=== PATIENT | female | born 1975 | race Caucasian/White ===

== ENCOUNTER 2016-09-23 15:52 | Observation (INO) | payer MEDICAID ==
[2016-09-23] MEDS ORDERED: fentaNYL 100 MCG/2 ML SDV IVPUSH ONE ×3 (16:10→16:50)
[2016-09-23] MEDS ORDERED: Sodium Chloride 0.9% 10 ML Syringe FLUSH PRN (16:12)
[2016-09-23] MEDS ORDERED: Sodium Chloride 0.9% 1,000 ML IV ONE ×3 (16:12→17:50)
[2016-09-23] MEDS ORDERED: Ondansetron 4 MG/2 ML SDV IVPUSH ONE (16:12)
[2016-09-23] MEDS ORDERED: fentaNYL 100 MCG/2 ML SDV ONE (16:12)
--- NOTE | 2016-09-23 16:25 | EDM.PDOC ---
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 She is approximately 7 weeks with a due date of . LMP was 08/05/16. She is a 8, para 4 with 3 previous miscarriages. History of 1 previous ectopic . She has no vaginal bleeding. She was seen in the clinic today by Dr. Lake and was diagnosed with possible miscarriage. She had no pain at her clinic visit today. She is anxious and restless. She also has nausea and vomiting. I called and spoke to Dr. Lake who reports that the patient had no pain or bleeding in the clinic this morning. She was diagnosed with suspected miscarriage. Ultrasound was performed in the clinic which Dr. Lake reports showed no adnexal mass or free fluid at that time. Her quantitative Hcg was 24, 000 today. He recommends transvaginal OB ultrasound to evaluate for ectopic . Lower Pelvic Pain Score (Numeric/FACES): 10 - Related Data Allergies Allergy/AdvReac Type Severity Reaction Status Date / Time hydromorphone HCl Allergy Hives Verified 05/25/16 08:53 [From Dilaudid] venom-honey bee Allergy Anaphylactic Verified 05/25/16 08:53 [bee venom (honey bee)] Shock preservatives in chicken Allergy Rash Uncoded 07/30/14 10:33 Home Meds: Home Meds PNV95/Ferrous Fumarate/FA [ Tablet] 1 tab PO DAILY 09/23/16 [History] Past Medical History HEENT History: Reports: Impaired vision Cardiovascular History: Reports: Other (see below) Other Cardiovascular History: DVT's in past Genitourinary History: Reports: Renal calculus 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 grav 8 para 4 and 3 miscarriage Hematologic History: Reports: Other (see below) (DVT) Other Hematologic History: pt is A positive; - Past Surgical History GI Surgical History: Reports: Appendectomy Female Surgical History: Reports: section Social & Family History - Family History Family Medical History: Noncontributory Cardiac: Reports: CA Respiratory: Reports: COPD Neurological: Reports: CVA Endocrine/Metabolic: Reports: Diabetes, type II - Tobacco Use Smoking Status *Q: Current Every Day Smoker Years of Tobacco use: 3 Packs/Tins Daily: 0.5 Used Tobacco, but Quit: No Second Hand Smoke Exposure: No - Caffeine Use Caffeine Use: Reports: Coffee, Tea - Alcohol Use Days Per Week of Alcohol Use: 0 - Recreational Drug Use Recreational Drug Use: No Drug Use in Last 12 Months: No Recreational Drug Type: Reports: Methamphetamine Recreational Drug Use Frequency: Not Used In Over 1 Year Recreational Drug Last Use: 2003 - Living Situation & Occupation Living situation: Reports: , with spouse, with family (3 kids) Occupation: employed ([employer]) ED ROS GENERAL - Review of Systems Review Of Systems: See Below Constitutional: Reports: No Symptoms. Denies: Fever, Chills Respiratory: Reports: No Symptoms. Denies: Shortness of Breath Cardiovascular: Reports: No Symptoms. Denies: Chest Pain GI/Abdominal: Reports: Abdominal Pain, Nausea, Vomiting : Reports: Other (no vaginal bleeding. pelvic pain) ED EXAM - Physical Exam Exam: See Below Exam Limited By: No Limitations General Appearance: Alert, WD/WN, Anxious, Severe Distress Respiratory/Chest: No Respiratory Distress, Lungs Clear, Normal Breath Sounds Cardiovascular: Regular Rate, Rhythm GI/Abdominal: Distended, Guarding, Tender (pelvic ). No: Rigid Neurological: Alert, Oriented Psychiatric: Anxious, Tearful Skin Exam: Pallor Course - Vital Signs Last Recorded V/S: Last Vital Signs Temp 98.2 F 09/23/16 16:03 Pulse 69 09/23/16 17:56 Resp 18 09/23/16 17:56 BP 64/35 L 09/23/16 17:56 Pulse Ox 98 09/23/16 17:56 - Orders/Labs/Meds Orders: Active Orders 24 hr Category Date Time Status Peripheral IV Care [RC] . DIRECTED Care 09/23/16 16:12 Active RED BLOOD CELLS LP [BBK] Stat Lab 09/23/16 16:30 Results TYPE AND SCREEN [BBK] Stat Lab 09/23/16 16:30 Results Norepinephrine [Levophed] 4 mg Med 09/23/16 17:30 Active Dextrose 5% in Water 246 ml IV TITRATE Sodium Chloride 0.9% [Normal Saline] 1,000 ml Med 09/23/16 17:50 Active IV ONETIME Sodium Chloride 0.9% [Saline Flush] Med 09/23/16 16:12 Active 10 ml FLUSH ASDIRECTED PRN Peripheral IV Insertion Adult [OM.PC] Stat [facility] 09/23/16 16:12 Ordered Schedule Procedure [COMM] Stat Ot 09/23/16 17:36 Ordered Transfuse PRBC [Transfuse Red Blood Cells] [COMM] Stat Ot 09/23/16 17:21 Ordered Medication Orders Norepinephrine Bitartrate 4 mg (/ Dextrose/Water) 250 mls @ 7.5 mls/hr IV TITRATE JILLIAN; 2 MCG/MIN PRN Reason: Protocol Sodium Chloride (Normal Saline) 1,000 mls @ 999 mls/hr IV ONETIME ONE Stop: 09/23/16 18:50 Sodium Chloride (Saline Flush) 10 ml FLUSH ASDIRECTED PRN PRN Reason: Keep Vein Open Last Admin: 09/23/16 16:25 Dose: 10 ml Labs: Laboratory Tests 09/23/16 09/23/16 09/23/16 Range/Units 16:30 16:30 16:30 WBC 10.97 H (3.98-10.04) K/mm3 RBC 3.53 L (3.98-5.22) M/mm3 Hgb 10.0 L (11.2-15.7) gm/L Hct 30.6 L (34.1-44.9) % MCV 86.7 (79.4-94.8) fl MCH 28.3 (25.6-32.2) pg MCHC 32.7 (32.2-35.5) g/dl RDW Std Deviation 50.3 H (36.4-46.3) fL Plt Count 236 (182-369) K/mm3 MPV 10.5 (9.4-12.3) fl Neut % (Auto) 75.6 H (34.0-71.1) % Lymph % (Auto) 17.4 L (19.3-51.7) % [place] % (Auto) 5.7 (4.7-12.5) % Eos % (Auto) 0.9 (0.7-5.8) Baso % (Auto) 0.3 (0.1-1.2) % Neut # (Auto) 8.30 H (1.56-6.13) K/mm3 Lymph # (Auto) 1.91 (1.18-3.74) K/mm3 [place] # (Auto) 0.62 H (0.24-0.36) K/mm3 Eos # (Auto) 0.10 (0.04-0.36) K/mm3 Baso # (Auto) 0.03 (0.01-0.08) K/mm3 Sodium 141 (136-145) mEq/L Potassium 3.5 (3.5-5.1) mEq/L Chloride 108 H (98-107) mEq/L Carbon Dioxide 21 (21-32) mEq/L Anion Gap 15.5 H (5-15) BUN 11 (7-18) mg/dL Creatinine 0.7 (0.55-1.02) mg/dL Est Cr Clr Drug Dosing 117.02 mL/min Estimated GFR (MDRD) > 60 (>60) mL/min BUN/Creatinine Ratio 15.7 (14-18) Glucose 118 H (74-106) mg/dL Calcium 7.9 L (8.5-10.1) mg/dL Total Bilirubin 0.2 (0.2-1.0) mg/dL AST 7 L (15-37) U/L ALT 15 (14-59) U/L Alkaline Phosphatase 61 (46-116) U/L Total Protein 5.8 L (6.4-8.2) g/dl Albumin 3.2 L (3.4-5.0) g/dl Globulin 2.6 gm/dL Albumin/Globulin Ratio 1.2 (1-2) Blood Type A POSITIVE Gel Antibody Screen Negative Crossmatch See Detail Meds: Medications Generic Name Dose Route Start Last Admin Trade Name Freq PRN Reason Stop Dose Admin Norepinephrine Bitartrate 4 mg 250 mls @ 7.5 mls/hr 09/23/16 17:30 / Dextrose/Water IV TITRATE JILLIAN Protocol 2 MCG/MIN Sodium Chloride 1,000 mls @ 999 mls/hr 09/23/16 17:50 Normal Saline IV 09/23/16 18:50 ONETIME ONE Sodium Chloride 10 ml 09/23/16 16:12 09/23/16 16:25 Saline Flush FLUSH 10 ml ASDIRECTED PRN Administration Keep Vein Open Discontinued Medications Generic Name Dose Route Start Last Admin Trade Name Luciano PRN Reason Stop Dose Admin Fentanyl Confirm 09/23/16 16:12 09/23/16 16:28 Sublimaze Administered 09/23/16 16:13 Not Given Dose 100 mcg .ROUTE .STK-MED ONE Fentanyl 50 mcg 09/23/16 16:10 09/23/16 16:11 Sublimaze IVPUSH 09/23/16 16:11 50 mcg ONETIME ONE Administration Fentanyl 50 mcg 09/23/16 16:45 09/23/16 16:50 Sublimaze IVPUSH 09/23/16 16:46 50 mcg ONETIME ONE Administration Fentanyl 50 mcg 09/23/16 16:50 09/23/16 17:47 Sublimaze IVPUSH 09/23/16 16:51 50 mcg ONETIME ONE Administration Hydromorphone HCl 0.5 mg 09/23/16 16:37 09/23/16 17:25 Dilaudid IVPUSH 09/23/16 16:38 Not Given ONETIME ONE Sodium Chloride 1,000 mls @ 999 mls/hr 09/23/16 16:12 09/23/16 16:21 Normal Saline IV 09/23/16 17:12 999 mls/hr ONETIME ONE Administration Sodium Chloride 1,000 mls @ 999 mls/hr 09/23/16 17:13 09/23/16 17:25 Normal Saline IV 09/23/16 18:13 999 mls/hr ONETIME ONE Administration Sodium Chloride Confirm 09/23/16 17:15 09/23/16 17:26 Normal Saline Administered 09/23/16 17:16 Not Given Dose 1,000 mls @ as directed .ROUTE .STK-MED ONE Ondansetron HCl 4 mg 09/23/16 16:12 09/23/16 16:23 Zofran IVPUSH 09/23/16 16:13 4 mg ONETIME ONE Administration - Re-Assessments/Exams Free Text/Narrative Re-Assessment/Exam: Initial workup included transvaginal ultrasound, type and screen, and CBC. The patient was in a severe amount of pain. She has a listed allergy to Dilaudid but did well with fentanyl en route. Her pain was managed with Fentanyl. She dropped her pressure into the 70s systolic. It initially responded to IV fluid boluses. Her labile BP made pain management difficult. A levophed drip was ordered for hypotension. Her BP improved prior to initiation of the levophed drop but it was kept at the bedside to use if needed to maintain her BP. We were able to obtain a transvaginal ultrasound and Dr. Lake was notified of her hypotension prior to the results of her ultrasound. Per Dr. Lake's recommendation over the phone, the OR crew was called in at [phone] for likely ruptured ectopic . The patient was promptly taken to the OR upon Dr. Lake's arrival to the ED. Ultrasound read by Dr. Lu, impression: 1. normal is not seen. Irregular fluid filed structure within the lower uterine segment is noted. 2. heterogeneous area within the right adnexa raising the possibility of ectopic and hematoma 3. fluid within the pelvis possibly due to blood Departure - Departure Time of Disposition: 17:45 Disposition: DC/Tfer to Critical Access 66 Condition: serious Clinical Impression: Ectopic Qualifiers: Location of ectopic : unspecified location Intrauterine status: without intrauterine Qualified Code(s): O00.90 - Unspecified ectopic without intrauterine - Discharge Information - My Orders Last 24 Hours: My Active Orders 09/23/16 16:12 Peripheral IV Care [RC] . DIRECTED Sodium Chloride 0.9% [Saline Flush] 10 ml FLUSH ASDIRECTED PRN Peripheral IV Insertion Adult [OM.PC] Stat 09/23/16 16:30 RED BLOOD CELLS LP [BBK] Stat TYPE AND SCREEN [BBK] Stat 09/23/16 17:21 Transfuse PRBC [Transfuse Red Blood Cells] [COMM] Stat 09/23/16 17:30 Norepinephrine [Levophed] 4 mg Dextrose 5% in Water 246 ml IV TITRATE - Assessment/Plan Last 24 Hours: My Active Orders 09/23/16 16:12 Peripheral IV Care [RC] . DIRECTED Sodium Chloride 0.9% [Saline Flush] 10 ml FLUSH ASDIRECTED PRN Peripheral IV Insertion Adult [OM.PC] Stat 09/23/16 16:30 RED BLOOD CELLS LP [BBK] Stat TYPE AND SCREEN [BBK] Stat 09/23/16 17:21 Transfuse PRBC [Transfuse Red Blood Cells] [COMM] Stat 09/23/16 17:30 Norepinephrine [Levophed] 4 mg Dextrose 5% in Water 246 ml IV TITRATE
[2016-09-23] MEDS ORDERED: HYDROmorphone 0.5 MG/0.5 ML Syringe IVPUSH ONE (16:37)
[2016-09-23] MEDS ORDERED: Sodium Chloride 0.9% 1,000 ML ONE (17:15)
[2016-09-23] MEDS ORDERED: Norepinephrine 4 MG in Dextrose 5% in Water 246 ML IV SCH ×2 (17:30)
--- NOTE | 2016-09-23 17:38 | PCM.PREANE ---
Preanesthetic Assessment - Anesthesia/Transfusion/Family Hx Anesthesia History: Prior Anesthesia Without Reaction Family History of Anesthesia Reaction: No Transfusion History: No Prior Transfusion(s) - Review of Systems General: No Symptoms Pulmonary: No Symptoms Cardiovascular: No Symptoms Gastrointestinal: No symptoms Neurological: No Symptoms Other: Reports: None, Anxiety - Physical Assessment NPO Status Date: 09/23/16 NPO Status Time: 14:15 O2 Sat by Pulse Oximetry: 100 Respiratory Rate: 24 Vital Signs: Last Vital Signs Temp 36.8 C 09/23/16 16:03 Pulse 62 09/23/16 16:03 Resp 24 H 09/23/16 16:03 BP 104/49 L 09/23/16 16:03 Pulse Ox 100 09/23/16 16:03 Height: 1.8 m Weight: 87.997 kg ASA Class: 2E Mental Status: Alert & Oriented x3 Airway Class: Mallampati = 1 Dentition: Reports: Caries (very poor dentition ) Thyro-Mental Finger Breadths: 3 Mouth Opening Finger Breadths: 3 ROM/Head Extension: Full Lungs: Clear to auscultation, Normal respiratory effort Cardiovascular: Regular Rate, Regular Rhythm - Lab Values: Laboratory Last Values WBC 10.97 K/mm3 (3.98-10.04) H 09/23/16 16:30 RBC 3.53 M/mm3 (3.98-5.22) L 09/23/16 16:30 Hgb 10.0 gm/L (11.2-15.7) L 09/23/16 16:30 Hct 30.6 % (34.1-44.9) L 09/23/16 16:30 MCV 86.7 fl (79.4-94.8) 09/23/16 16:30 MCH 28.3 pg (25.6-32.2) 09/23/16 16:30 MCHC 32.7 g/dl (32.2-35.5) 09/23/16 16:30 RDW Std Deviation 50.3 fL (36.4-46.3) H 09/23/16 16:30 Plt Count 236 K/mm3 (182-369) 09/23/16 16:30 MPV 10.5 fl (9.4-12.3) 09/23/16 16:30 Neut % (Auto) 75.6 % (34.0-71.1) H 09/23/16 16:30 Lymph % (Auto) 17.4 % (19.3-51.7) L 09/23/16 16:30 [place] % (Auto) 5.7 % (4.7-12.5) 09/23/16 16:30 Eos % (Auto) 0.9 (0.7-5.8) 09/23/16 16:30 Baso % (Auto) 0.3 % (0.1-1.2) 09/23/16 16:30 Neut # (Auto) 8.30 K/mm3 (1.56-6.13) H 09/23/16 16:30 Lymph # (Auto) 1.91 K/mm3 (1.18-3.74) 09/23/16 16:30 [place] # (Auto) 0.62 K/mm3 (0.24-0.36) H 09/23/16 16:30 Eos # (Auto) 0.10 K/mm3 (0.04-0.36) 09/23/16 16:30 Baso # (Auto) 0.03 K/mm3 (0.01-0.08) 09/23/16 16:30 Sodium 141 mEq/L (136-145) 09/23/16 16:30 Potassium 3.5 mEq/L (3.5-5.1) 09/23/16 16:30 Chloride 108 mEq/L (98-107) H 09/23/16 16:30 Carbon Dioxide 21 mEq/L (21-32) 09/23/16 16:30 Anion Gap 15.5 (5-15) H 09/23/16 16:30 BUN 11 mg/dL (7-18) 09/23/16 16:30 Creatinine 0.7 mg/dL (0.55-1.02) 09/23/16 16:30 Est Cr Clr Drug Dosing 117.02 mL/min 09/23/16 16:30 Estimated GFR (MDRD) > 60 mL/min (>60) 09/23/16 16:30 BUN/Creatinine Ratio 15.7 (14-18) 09/23/16 16:30 Glucose 118 mg/dL (74-106) H 09/23/16 16:30 Calcium 7.9 mg/dL (8.5-10.1) L 09/23/16 16:30 Total Bilirubin 0.2 mg/dL (0.2-1.0) 09/23/16 16:30 AST 7 U/L (15-37) L 09/23/16 16:30 ALT 15 U/L (14-59) 09/23/16 16:30 Alkaline Phosphatase 61 U/L (46-116) 09/23/16 16:30 Total Protein 5.8 g/dl (6.4-8.2) L 09/23/16 16:30 Albumin 3.2 g/dl (3.4-5.0) L 09/23/16 16:30 Globulin 2.6 gm/dL 09/23/16 16:30 Albumin/Globulin Ratio 1.2 (1-2) 09/23/16 16:30 - Allergies Allergies/Adverse Reactions: Allergies Allergy/AdvReac Type Severity Reaction Status Date / Time hydromorphone HCl Allergy Hives Verified 05/25/16 08:53 [From Dilaudid] venom-honey bee Allergy Anaphylactic Verified 05/25/16 08:53 [bee venom (honey bee)] Shock preservatives in chicken Allergy Rash Uncoded 07/30/14 10:33 - Blood Blood Available: No Product(s) Available: None - Acknowledgements Anesthesia Type Planned: General Anesthesia Pt an Appropriate Candidate for the Planned Anesthesia: Yes Alternatives and Risks of Anesthesia Discussed w Pt/Guardian: Yes Pt/Guardian Understands and Agrees with Anesthesia Plan: Yes PreAnesthesia Questionnaire HEENT History: Reports: Impaired vision Cardiovascular History: Reports: Other (see below) Other Cardiovascular History: DVT's in past Genitourinary History: Reports: Renal calculus 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 grav 8 para 4 and 3 miscarriage Hematologic History: Reports: Other (see below) (DVT) Other Hematologic History: pt is A positive; - Past Surgical History GI Surgical History: Reports: Appendectomy Female Surgical History: Reports: section - SUBSTANCE USE Smoking Status *Q: Current Every Day Smoker (3 years 0.3ppd) Tobacco Use Within Last Twelve Months: Cigarettes Second Hand Smoke Exposure: No Days Per Week of Alcohol Use: 0 Recreational Drug Use History: No Recreational Drug Type: Reports: Methamphetamine Recreational Drug Last Use: 2003 - HOME MEDS Home Medications: Home Meds PNV95/Ferrous Fumarate/FA [ Tablet] 1 tab PO DAILY 09/23/16 [History] - CURRENT (IN HOUSE) MEDS Current Meds: Current Medications Sodium Chloride (Normal Saline) 1,000 mls @ 999 mls/hr IV ONETIME ONE Stop: 09/23/16 18:13 Last Admin: 09/23/16 17:25 Dose: 999 mls/hr Norepinephrine Bitartrate 4 mg (/ Dextrose/Water) 250 mls @ 7.5 mls/hr IV TITRATE JILLIAN; 2 MCG/MIN PRN Reason: Protocol Sodium Chloride (Saline Flush) 10 ml FLUSH ASDIRECTED PRN PRN Reason: Keep Vein Open Last Admin: 09/23/16 16:25 Dose: 10 ml Discontinued Medications Fentanyl (Sublimaze) Confirm Administered Dose 100 mcg .ROUTE .STK-MED ONE Stop: 09/23/16 16:13 Last Admin: 09/23/16 16:28 Dose: Not Given Fentanyl (Sublimaze) 50 mcg IVPUSH ONETIME ONE Stop: 09/23/16 16:11 Last Admin: 09/23/16 16:11 Dose: 50 mcg Fentanyl (Sublimaze) 50 mcg IVPUSH ONETIME ONE Stop: 09/23/16 16:46 Last Admin: 09/23/16 16:50 Dose: 50 mcg Fentanyl (Sublimaze) 50 mcg IVPUSH ONETIME ONE Stop: 09/23/16 16:51 Hydromorphone HCl (Dilaudid) 0.5 mg IVPUSH ONETIME ONE Stop: 09/23/16 16:38 Last Admin: 09/23/16 17:25 Dose: Not Given Sodium Chloride (Normal Saline) 1,000 mls @ 999 mls/hr IV ONETIME ONE Stop: 09/23/16 17:12 Last Admin: 09/23/16 16:21 Dose: 999 mls/hr Sodium Chloride (Normal Saline) Confirm Administered Dose 1,000 mls @ as directed .ROUTE .STK-MED ONE Stop: 09/23/16 17:16 Last Admin: 09/23/16 17:26 Dose: Not Given Ondansetron HCl (Zofran) 4 mg IVPUSH ONETIME ONE Stop: 09/23/16 16:13 Last Admin: 09/23/16 16:23 Dose: 4 mg
--- NOTE | 2016-09-23 17:47 | US ---
First trimester obstetrical ultrasound: Multiple real-time images were obtained transvaginally. Comparison: No previous study. Irregular fluid-containing structure is seen within the endometrial cavity near the lower uterine segment. This does not appear as a normal gestational sac. Right ovary is not seen. Left ovary is identified and appears unremarkable. Adnexal soft tissue abnormality is seen within the right adnexa. Difficult to exclude ectopic admixed with hematoma. There is some fluid being seen within the pelvis possibly representing blood. Impression: 1. Normal is not seen. Irregular fluid-filled structure within the lower uterine segment is noted. 2. Heterogeneous area within the right adnexa raising the possibility of ectopic and hematoma. 3. Fluid within the pelvis possibly due to blood. Please correlate that patient does have positive test. Diagnostic code #5
[2016-09-23] MEDS ORDERED: fentaNYL 250 MCG/5 ML SDV ONE (17:56)
[2016-09-23] MEDS ORDERED: Propofol 200 MG/20 ML SDV ONE (17:56)
[2016-09-23] MEDS ORDERED: Midazolam 1 MG/ML 2 ML SDV ONE (17:56)
[2016-09-23] MEDS ORDERED: ceFAZolin 1 GM Vial ONE (17:57)
[2016-09-23] MEDS ORDERED: Bupivacaine 0.5% 30 ML SDV ONE ×2 (18:00→20:23)
[2016-09-23] MEDS ORDERED: Sodium Chloride 0.9% 50 ML SDV ONE ×2 (18:00→20:23)
[2016-09-23] MEDS ORDERED: Lactated Ringers 1,000 ML ONE ×3 (18:08→18:37)
[2016-09-23] MEDS ORDERED: Rocuronium 50 MG/5 ML Vial ONE (18:15)
[2016-09-23] MEDS ORDERED: Dexamethasone 4 MG/ML SDV ONE (18:15)
[2016-09-23] MEDS ORDERED: Lidocaine 1% 4 ML ONE (18:15)
[2016-09-23] MEDS ORDERED: Ondansetron 4 MG/2 ML SDV ONE (18:15)
[2016-09-23] MEDS ORDERED: Succinylcholine/Normal Saline 100 MG/5 ML Syringe ONE (18:15)
[2016-09-23] MEDS ORDERED: Phenylephrine/Normal Saline 100 MCG/ML 10 ML Syringe ONE (18:18)
[2016-09-23] MEDS ORDERED: Neostigmine Methylsulfate 1 MG/ML 5 ML Syringe ONE (19:01)
[2016-09-23] MEDS ORDERED: Ondansetron 4 MG/2 ML SDV IVPUSH PRN (19:06)
[2016-09-23] MEDS ORDERED: HYDROmorphone 0.5 MG/0.5 ML Syringe IVPUSH PRN (19:06)
[2016-09-23] MEDS: Lactated Ringers 1,000 ML IV SCH ×2 (19:07→23:24)
[2016-09-23] MEDS ORDERED: fentaNYL 250 MCG/5 ML SDV IVPUSH PRN (19:14)
--- NOTE | 2016-09-23 19:18 | PCM.POSTAN ---
POST ANESTHESIA ASSESSMENT - MENTAL STATUS Mental Status: alert, oriented - VITAL SIGNS Pulse Rate: 113 SaO2: 98 Resp Rate: 24 Blood Pressure: 117/55 Temperature: 37.3 C - RESPIRATORY Respiratory Status: respiratory rate WNL, airway patent, O2 saturation stable, supplemental oxygen - CARDIOVASCULAR CV Status: pulse rate WNL, blood pressure stable - GASTROINTESTINAL GI Status: no symptoms - PAIN Pain Score: 0 - POST OP HYDRATION Hydration Status: adequate & stable - OBSERVATIONS Free Text/Narrative:: no anesthesia complications noted
--- NOTE | 2016-09-23 19:22 | PCM.OPNOTE ---
- General Post-Op/Procedure Note Date of Surgery/Procedure: 09/23/16 Operative Procedure(s): Laparoscopy, left salpingectomy Findings: 1. Proximal left tubal 2. Hemoperitoneum-1350 cc. 3. Normal but mildly enlarged uterus, normal left ovary, normal right ovary and fallopian tube, appendix surgically absent. Normal posterior and anterior cul-de -sac. Minimal scarring involving right ovary. Pre Op Diagnosis: Ectopic Post-Op Diagnosis: Left tubal Anesthesia Technique: General ET tube Other Anesthesia Type: Local with Marcaine 0.5% Primary Surgeon: Delano Lake Secondary Surgeon: Jf Bruner Anesthesia Provider: Randy Feliz Pathology: Left fallopian tube with ectopic Fluid Replacement, Intraop: 2,600 (Crystalloid) Output, Urine Amount: 125 EBL in mLs: 10 (Hemoperitoneum-1350 cc) Drain/Tube Comments:: webster-during surgery only Complications: None Condition: Good Free Text/Narrative:: Surgery duration: 41 minutes Complications: None Procedure: The patient is taken to the operating room and placed in a supine position on the operating table. She received 2 g of Ancef preoperatively for infection prophylaxis. She had SCDs in place for DVT prophylaxis. She was administered general endotracheal anesthesia. After adequate anesthesia she is placed in a dorsal lithotomy position and prepped and draped in usual fashion. Uterine manipulator was placed as was an indwelling bladder catheter. The infraumbilical and suprapubic and eventually a right lateral port site were developed using Marcaine 0.5% with local anesthetic. Pneumoperitoneum was established. Immediately upon entrance into the peritoneal cavity it was noted to have a massive amounts of blood and clot present. Initial investigation showed a proximal left tubal with active arterial bleeding present. Other findings as described above. Decision was made to take the left fallopian tube. Some is based on the fact that she had a previous ectopic in that fallopian tube by her history. The Endo seal device was then placed and the tube proximal to the ectopic was cauterized. The meso- salpinx was developed with the cautery device and the entire left fallopian tube was removed. Hemostasis was confirmed at this time. Hemoperitoneum was then evacuated as best as possible. The pelvic organs were rinsed with normal saline. The evaluation of the upper abdomen was undertaken and some blood was noted. As much of this as reasonable was removed. At this point the patient was then closed. Using a Jam Contreras closure device the 12 mm right-sided port was closed using a single interrupted suture of 20 PDS. The skin overlying this incision was closed with short running suture of 3-0 Monocryl. The suprapubic and infraumbilical incision sites were closed with a single interrupted subcuticular stitch of 3-0 Monocryl. All incision sites were further approximated with Dermabond skin glue. Condition upon discharge from the operating room: Good
[2016-09-23] MEDS ORDERED: fentaNYL 100 MCG/2 ML SDV IVPUSH PRN (19:31)
[2016-09-23] MEDS: Ibuprofen 600 MG Tab PO PRN (21:11)
[2016-09-23] MEDS: traMADol 50 MG Tab PO PRN (22:17)
[2016-09-23] MEDS: Meperidine PF 50 MG/ML Syringe IVPUSH SCH (23:08)
[2016-09-24] MEDS: Ibuprofen 600 MG Tab PO PRN ×2 (01:11→06:39)
[2016-09-24] MEDS: traMADol 50 MG Tab PO PRN ×3 (02:56→15:07)
[2016-09-24] MEDS ORDERED: Sodium Chloride 0.9% 1,000 ML IV SCH (07:45)
[2016-09-24] MEDS ORDERED: Sodium Chloride 0.9% 1,000 ML ONE (07:54)
[2016-09-24] MEDS ORDERED: Acetaminophen/oxyCODONE 325-5 MG Tab PO ONE ×2 (10:30→17:00)
[2016-09-24 17:01] VITALS: BP 108/49
--- NOTE | 2016-09-24 17:04 | PCM.DCSUM1 ---
Discharge Summary - Hospital Course Free Text/Narrative:: Papo is a 41-year-old now 9 para 4054 white female who was admitted last evening for complaints of abdominal pain, positive test with abnormally rising beta hCG titers, and empty uterus. An ultrasound showed a right-sided adnexal mass which had developed during the course of that day which was different from preceding ultrasound early in the day which showed an empty uterus. Her beta-hCGs abruptly from approximately 24,000 up to 32,000. No cardiac activity or pole was noted. Patient suspected of having an ectopic . She's taken to surgery and underwent a laparoscopy with right salpingectomy. She had a ruptured ectopic in the proximal left fallopian tube. It was actively bleeding with arterial blood vessel at the time of surgery. She approximately 1500 cc of blood in her abdominal cavity. Surgery took approximately 40 one minutes and patient was discharged to observation on a MedSur unit. She's followed throughout the night was given tramadol and ibuprofen for pain. Today she is taking Percocet and ibuprofen for pain. she's doing well at this time in that she is ambulating without concerns is not lightheaded. Her vital signs are stable. Her pulse is in the 60s her blood pressure has been normal. She shows no evidence of bleeding. She does have some ecchymosis near the right lateral abdominal incision but all incisions appeared to be dry and intact. Positive bowel sounds are noted. Exam otherwise is unremarkable. She underwent a transfusion with 2 units packed blood cells as her hemoglobin dropped from an admission hemoglobin of 10.0 down to 7.1 then to 5. 9. With the 2 units of packed red blood cells for white count was normal and her hemoglobin bounced back to 7.5. She is desiring discharge home. she feels she'll take care of her day to day activities. - Discharge Data Discharge Date: 09/24/16 Discharge Disposition: Home, Self-Care 01 Condition: Good - Patient Summary/Data Operative Procedure(s) Performed: Laparoscopy, left salpingectomy - Patient Instructions Diet: Regular Diet as Tolerated (High fiber diet) Activity: As Tolerated ( no intercourse or tampons unntil juan miller.) Driving: Do Not Drive (Do not drive times the next 3-5 days.) Showering/Bathing: May Shower (May take a bath after one week.) Wound/Incision Care: Keep Operative Site/Wound Site Clean and Dry Notify Provider of: Fever, Increased Pain, Swelling and Redness, Drainage, Nausea and/or Vomiting - Discharge Plan Prescriptions/Med Rec: Acetaminophen/oxyCODONE [Percocet 325-5 MG] 2 tab PO Q4H PRN #30 tablet PRN Reason: Pain Ferrous Sulfate [Iron] 325 mg PO BID #100 tablet Home Medications: Home Meds PNV95/Ferrous Fumarate/FA [ Tablet] 1 tab PO DAILY 09/23/16 [History] Acetaminophen/oxyCODONE [Percocet 325-5 MG] 2 tab PO Q4H PRN #30 tablet [Rx] Ferrous Sulfate [Iron] 325 mg PO BID #100 tablet 09/24/16 [Rx] Ibuprofen [IJD: Ibuprofen] 600 mg PO Q4H PRN #30 tablet 09/24/16 [Rx] Patient Handouts: Salpingectomy, Smoking Cessation, Tips for Success, Ectopic , [id number], Salpingectomy, Care After Forms: ED Department Discharge - Discharge Summary/Plan Comment Discharge Summary/Plan Comment: Discharge instructions: 1. Discharge home 2. Regular, high fiber, high iron diet. 3. Occasions to medications but did come discuss with him given to the patient. 4. Routine postoperative activity including weightlifting restrictions no intercourse or tampons. 5. Precautions given concern increased pain, bleeding, temperature elevation, sign/symptoms and DVT/PE. Patient is a special one of these because of her past history of DVT. 6. Return to clinic-4 weeks-Dr. [facility]. Diagnosis: Left tubal Condition: Good - Patient Data Vitals - Most Recent: Last Vital Signs Temp 36.6 C 09/24/16 14:12 Pulse 55 L 09/24/16 14:12 Resp 18 09/24/16 14:12 BP 100/40 L 09/24/16 14:12 Pulse Ox 100 09/24/16 15:45 Weight - Most Recent: 92.487 kg I&O - Last 24 hours: Intake & Output 09/24/16 09/24/16 09/24/16 06:59 14:59 22:59 Intake Total 1475 840 Output Total 900 Balance 575 840 Lab Results - Last 24 hrs: Laboratory Results - last 24 hr 05/11/17 05/12/17 05/12/17 Range/Units 21:09 06:22 15:01 WBC 13.52 H 10.86 H 10.80 H (3.98-10.04) K/mm3 RBC 2.54 L 2.11 L 2.65 L (3.98-5.22) M/mm3 Hgb 7.1 L* 5.9 L* 7.5 L (11.2-15.7) gm/L Hct 22.7 L 18.6 L 23.0 L (34.1-44.9) % MCV 89.4 88.2 86.8 (79.4-94.8) fl MCH 28.0 28.0 28.3 (25.6-32.2) pg MCHC 31.3 L 31.7 L 32.6 (32.2-35.5) g/dl RDW Std Deviation 50.3 H 49.3 H 50.2 H (36.4-46.3) fL Plt Count 195 189 188 (182-369) K/mm3 MPV 10.8 11.2 10.9 (9.4-12.3) fl Neut % (Auto) 91.2 H 71.8 H (34.0-71.1) % Lymph % (Auto) 6.1 L 20.4 (19.3-51.7) % [place] % (Auto) 2.2 L 6.3 (4.7-12.5) % Eos % (Auto) 0.1 L 0.9 (0.7-5.8) Baso % (Auto) 0.1 0.3 (0.1-1.2) % Neut # (Auto) 12.33 H 7.76 H (1.56-6.13) K/mm3 Lymph # (Auto) 0.82 L 2.20 (1.18-3.74) K/mm3 [place] # (Auto) 0.30 0.68 H (0.24-0.36) K/mm3 Eos # (Auto) 0.01 L 0.10 (0.04-0.36) K/mm3 Baso # (Auto) 0.02 0.03 (0.01-0.08) K/mm3 Manual Slide Review Abnormal smear Abnormal smear Med Orders - Current: Current Medications Fentanyl (Sublimaze) 50 mcg IVPUSH ASDIRECTED PRN PRN Reason: Pain Stop: 09/26/16 19:32 Last Admin: 09/23/16 20:01 Dose: 50 mcg Norepinephrine Bitartrate 4 mg (/ Dextrose/Water) 250 mls @ 7.5 mls/hr IV TITRATE JILLIAN; 2 MCG/MIN PRN Reason: Protocol Lactated Ringer's (Ringers, Lactated) 1,000 mls @ 125 mls/hr IV ASDIRECTED JILLIAN Last Admin: 09/23/16 23:24 Dose: 125 mls/hr Sodium Chloride (Normal Saline) 1,000 mls @ 100 mls/hr IV ASDIRECTED JILLIAN Stop: 09/24/16 23:59 Ibuprofen (Motrin) 600 mg PO Q4H PRN PRN Reason: Pain (mild 1-3) Last Admin: 09/24/16 06:39 Dose: 600 mg Ondansetron HCl (Zofran) 4 mg IVPUSH Q4H PRN PRN Reason: Nausea/Vomiting Oxycodone/Acetaminophen (Percocet 325-5 Mg) 2 tab PO ONETIME ONE Stop: 09/24/16 16:41 Sodium Chloride (Saline Flush) 10 ml FLUSH ASDIRECTED PRN PRN Reason: Keep Vein Open Last Admin: 09/23/16 16:25 Dose: 10 ml Tramadol HCl (Ultram) 50 mg PO Q4H PRN PRN Reason: Pain Last Admin: 09/24/16 15:07 Dose: 50 mg Discontinued Medications Bupivacaine HCl (Marcaine 0.5%) Confirm Administered Dose 30 ml .ROUTE .STK-MED ONE Stop: 09/23/16 20:24 Last Admin: 09/23/16 18:13 Dose: 10 ml Bupivacaine HCl (Marcaine 0.5%) Confirm Administered Dose 30 ml .ROUTE .STK-MED ONE Stop: 09/23/16 18:01 Cefazolin Sodium (Ancef) Confirm Administered Dose 2 gm .ROUTE .STK-MED ONE Stop: 09/23/16 17:58 Dexamethasone (Dexamethasone) Confirm Administered Dose 4 mg .ROUTE .STK-MED ONE Stop: 09/23/16 18:16 Fentanyl (Sublimaze) Confirm Administered Dose 100 mcg .ROUTE .STK-MED ONE Stop: 09/23/16 16:13 Last Admin: 09/23/16 16:28 Dose: Not Given Fentanyl (Sublimaze) 50 mcg IVPUSH ONETIME ONE Stop: 09/23/16 16:11 Last Admin: 09/23/16 16:11 Dose: 50 mcg Fentanyl (Sublimaze) 50 mcg IVPUSH ONETIME ONE Stop: 09/23/16 16:46 Last Admin: 09/23/16 16:50 Dose: 50 mcg Fentanyl (Sublimaze) 50 mcg IVPUSH ONETIME ONE Stop: 09/23/16 16:51 Last Admin: 09/23/16 17:47 Dose: 50 mcg Fentanyl (Sublimaze) 50 mcg IVPUSH Q5M PRN PRN Reason: PAIN Fentanyl (Sublimaze) Confirm Administered Dose 250 mcg .ROUTE .STK-MED ONE Stop: 09/23/16 17:57 Glycopyrrolate () Confirm Administered Dose 1 mg .ROUTE .STK-MED ONE Stop: 09/23/16 19:02 Hydromorphone HCl (Dilaudid) 0.5 mg IVPUSH ONETIME ONE Stop: 09/23/16 16:38 Last Admin: 09/23/16 17:25 Dose: Not Given Hydromorphone HCl (Dilaudid) 0.2 mg IVPUSH Q2H PRN PRN Reason: Pain (severe 7-10) Sodium Chloride (Normal Saline) 1,000 mls @ 999 mls/hr IV ONETIME ONE Stop: 09/23/16 17:12 Last Admin: 09/23/16 16:21 Dose: 999 mls/hr Sodium Chloride (Normal Saline) 1,000 mls @ 999 mls/hr IV ONETIME ONE Stop: 09/23/16 18:13 Last Admin: 09/23/16 17:25 Dose: 999 mls/hr Sodium Chloride (Normal Saline) Confirm Administered Dose 1,000 mls @ as directed .ROUTE .STK-MED ONE Stop: 09/23/16 17:16 Last Admin: 09/23/16 17:26 Dose: Not Given Sodium Chloride (Normal Saline) 1,000 mls @ 999 mls/hr IV ONETIME ONE Stop: 09/23/16 18:50 Last Admin: 09/23/16 23:08 Dose: Not Given Sodium Chloride (Normal Saline) Confirm Administered Dose 1,000 mls @ as directed .ROUTE .ST-MED ONE Stop: 09/24/16 07:55 Last Admin: 09/24/16 08:29 Dose: 100 ml Lactated Ringer's (Ringers, Lactated) Confirm Administered Dose 1,000 mls @ as directed .ROUTE .STK-MED ONE Stop: 09/23/16 18:09 Lidocaine HCl (Xylocaine-Mpf 1%) Confirm Administered Dose 4 mls @ as directed .ROUTE .STK-MED ONE Stop: 09/23/16 18:16 Lactated Ringer's (Ringers, Lactated) Confirm Administered Dose 1,000 mls @ as directed .ROUTE .STK-MED ONE Stop: 09/23/16 18:17 Lactated Ringer's (Ringers, Lactated) Confirm Administered Dose 1,000 mls @ as directed .ROUTE .ST-MED ONE Stop: 09/23/16 18:38 Meperidine HCl (Demerol) 12.5 mg IVPUSH Q15M JILLIAN Stop: 09/23/16 19:31 Last Admin: 09/23/16 23:08 Dose: Not Given Midazolam HCl (Versed 1 Mg/Ml) Confirm Administered Dose 2 mg .ROUTE .ST-MED ONE Stop: 09/23/16 17:57 Neostigmine Methylsulfate (Neostigmine) Confirm Administered Dose 5 mg .ROUTE .ST-MED ONE Stop: 09/23/16 19:02 Ondansetron HCl (Zofran) 4 mg IVPUSH ONETIME ONE Stop: 09/23/16 16:13 Last Admin: 09/23/16 16:23 Dose: 4 mg Ondansetron HCl (Zofran) Confirm Administered Dose 4 mg .ROUTE .STK-MED ONE Stop: 09/23/16 18:16 Oxycodone/Acetaminophen (Percocet 325-5 Mg) 2 tab PO ONETIME ONE Stop: 09/24/16 10:31 Last Admin: 09/24/16 10:59 Dose: 2 tab Phenylephrine HCl (Phenylephrine In Ns 100 Mcg/Ml) Confirm Administered Dose 1 mg .ROUTE .STK-MED ONE Stop: 09/23/16 18:19 Propofol (Diprivan 20 Ml) Confirm Administered Dose 200 mg .ROUTE .STK-MED ONE Stop: 09/23/16 17:57 Rocuronium [place] (Zemuron) Confirm Administered Dose 50 mg .ROUTE .STK-MED ONE Stop: 09/23/16 18:16 Sodium Chloride (Normal Saline) Confirm Administered Dose 50 ml .ROUTE .STK-MED ONE Stop: 09/23/16 20:24 Sodium Chloride (Normal Saline) Confirm Administered Dose 50 ml .ROUTE .STK-MED ONE Stop: 09/23/16 18:01 Succinylcholine Chloride (Succinylcholine In Ns Pf) Confirm Administered Dose 100 mg .ROUTE .STK-MED ONE Stop: 09/23/16 18:16 *Q Meaningful Use (DIS) - VTE *Q VTE Criteria *Q: - Stroke *Q Stroke Criteria *Q: - AMI *Q AMI Criteria *Q:
== END 2016-09-24 18:30 | disposition home or self-care (01) ==
LOC: JD.ED 15:52 → SUPCPDRO 15:52 → JD.SDS 18:14 → JD.MS 19:06
PROVIDERS: ADMIT Obstetrics & Gynecology; ATTEND Obstetrics & Gynecology
DX: O00.10 Tubal pregnancy without intrauterine pregnancy (principal); I82.4Z9 Acute embolism and thrombosis of unspecified deep veins of unspecified distal lower extremity; F41.9 Anxiety disorder, unspecified; E66.9 Obesity, unspecified; M19.90 Unspecified osteoarthritis, unspecified site; F32.9 Major depressive disorder, single episode, unspecified; E55.9 Vitamin D deficiency, unspecified; F17.210 Nicotine dependence, cigarettes, uncomplicated; M71.22 Synovial cyst of popliteal space [Baker], left knee; Z98.890 Other specified postprocedural states; Z91.030 Bee allergy status; Z79.899 Other long term (current) drug therapy; Z88.8 Allergy status to other drugs, medicaments and biological substances; Z91.5 Personal history of self-harm; Z90.49 Acquired absence of other specified parts of digestive tract
CPT/HCPCS: 36415; 36430; 59151; 76817; 80053; 85025; 85027; 86850; 86900; 86901; 86922; 88305; 96361; 96374; 96375; 96376; 99285; A9270; G0378; J0330; J0690; J1100; J2250; J2405; J2710; J3010; J7040; J7050; J7120; P9016; 00840; 99284; J2704

== ENCOUNTER 2016-09-27 09:32 | Emergency (ER) | payer MEDICAID ==
[2016-09-27] MEDS ORDERED: Sodium Chloride 0.9% 1,000 ML IV SCH (09:45)
[2016-09-27] MEDS ORDERED: Sodium Chloride 0.9% 10 ML Syringe FLUSH PRN (09:45)
[2016-09-27] MEDS ORDERED: fentaNYL 100 MCG/2 ML SDV IVPUSH ONE ×2 (09:46→13:46)
[2016-09-27] MEDS ORDERED: Iopamidol 755 Mg/ML 100 ML Bottle IVPUSH ONE (09:52)
[2016-09-27] MEDS ORDERED: Sodium Chloride 0.9% 10 ML Syringe FLUSH ONE (09:52)
[2016-09-27] MEDS ORDERED: Sodium Chloride 0.9% 100 ML IV SCH (10:00)
--- NOTE | 2016-09-27 10:35 | CT ---
CT chest Technique: Multiple axial sections through the chest were obtained. Contrast was given. Study performed as a pulmonary angiogram protocol. Findings: Pulmonary arteries are well-opacified. No filling defects are seen to indicate pulmonary embolism. Mediastinum and hilar regions show no adenopathy or mass. No coronary artery calcification is seen. No pericardial thickening is identified. Mild areas of bibasilar atelectasis is seen. Lungs otherwise are clear. Impression: 1. Pulmonary arteries show no filling defects to indicate pulmonary embolism. 2. Bibasilar atelectasis noted. 3. No additional abnormality is appreciated on CT study of the chest performed as a pulmonary angiogram protocol. Diagnostic code #2
--- NOTE | 2016-09-27 11:48 | EDM.PDOC ---
ED HPI GENERAL MEDICAL PROBLEM - General Chief Complaint: Lower Extremity Injury/Pain Stated Complaint: [facility] Time Seen by Provider: 09/27/16 09:40 Source of Information: Reports: Patient History Limitations: Reports: No Limitations - History of Present Illness INITIAL COMMENTS - FREE TEXT/NARRATIVE: The patient presents with left leg pain and right lateral lower chest pain. She had an ectopic with surgery on the . She went home the next day but now she developed this pain in her left leg from her hip to her knee. She has mild edema. She also has some pain to the right lateral lower chest. She also has ecchymosis to the lower abdominal wall. She has no fever, chills, or cough. She does not feel short of breath. She has a history of DVT after a a few years ago. Onset: Gradual Duration: Day(s): Location: Reports: Lower Extremity, Left (upper leg) Quality: Reports: Ache Severity: Moderate Improves with: Reports: None Worsens with: Reports: None Context: Reports: Other (After surgery) Associated Symptoms: Reports: Chest Pain. Denies: Cough, Fever/Chills, Nausea/ Vomiting, Shortness of Breath Left Leg Pain Score (Numeric/FACES): 8 - Related Data Allergies Allergy/AdvReac Type Severity Reaction Status Date / Time hydromorphone HCl Allergy Hives Verified 09/27/16 09:39 [From Dilaudid] venom-honey bee Allergy Anaphylactic Verified 09/27/16 09:39 [bee venom (honey bee)] Shock preservatives in chicken Allergy Rash Uncoded 09/23/16 21:14 Home Meds: Home Meds PNV95/Ferrous Fumarate/FA [ Tablet] 1 tab PO DAILY 09/23/16 [History] Acetaminophen/oxyCODONE [Percocet 325-5 MG] 2 tab PO Q4H PRN #30 tablet [Rx] Ferrous Sulfate [Iron] 325 mg PO BID #100 tablet 09/24/16 [Rx] Ibuprofen [IJD: Ibuprofen] 600 mg PO Q4H PRN #30 tablet 09/24/16 [Rx] Past Medical History HEENT History: Reports: Impaired Vision, Other (See Below) Other HEENT History: wears contacts Cardiovascular History: Reports: Other (See Below) Other Cardiovascular History: DVT to left leg in Apr 2013 and September 2015 Gastrointestinal History: Reports: None Genitourinary History: Reports: None [employer] History: Reports: Ectopic , 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 grav 8 para 4 and 3 miscarriage, currenct ectopic September 2016 Musculoskeletal History: Reports: Osteoarthritis Psychiatric History: Reports: Anxiety Other Psychiatric History: has an appt to see [facility] from [facility] on September 30 Hematologic History: Reports: Anemia, Iron Deficiency Other Hematologic History: pt is A positive - Past Surgical History GI Surgical History: Reports: Appendectomy Female Surgical History: Reports: D&C Musculoskeletal Surgical History: Reports: None Social & Family History - Family History Family Medical History: Noncontributory Cardiac: Reports: [place] Respiratory: Reports: COPD Neurological: Reports: CVA Endocrine/Metabolic: Reports: Diabetes, type II - Tobacco Use Smoking Status *Q: Current Every Day Smoker Years of Tobacco use: 20 Packs/Tins Daily: 0.5 Used Tobacco, but Quit: Yes Month Tobacco Last Used: Apr 2012 Second Hand Smoke Exposure: No - Caffeine Use Caffeine Use: Reports: Coffee - Alcohol Use Days Per Week of Alcohol Use: 0 - Recreational Drug Use Recreational Drug Use: Yes Drug Use in Last 12 Months: No 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, 2004) Recreational Drug Use Frequency: Not Used In Over 1 Year Recreational Drug Last Use: 2003 - Living Situation & Occupation Living situation: Reports: , with Spouse, with Family Occupation: Employed Review of Systems - Review of Systems Review Of Systems: See Below Constitutional: Reports: No Symptoms Eyes: Reports: No Symptoms Ears: Reports: No Symptoms Nose: Reports: No Symptoms Mouth/Throat: Reports: No Symptoms Respiratory: Reports: No Symptoms Cardiovascular: Reports: Chest Pain GI/Abdominal: Reports: No Symptoms Genitourinary: Reports: No Symptoms Musculoskeletal: Reports: Other (Left upper leg pain) Skin: Reports: Other (Ecchymosis to the lower abdomen) Trauma Exam - Physical Exam Exam: See Below Exam Limited By: No Limitations General Appearance: Reports: Alert, No Apparent Distress Head: Reports: Atraumatic, Normocephalic Ears: Reports: Normal External Exam Nose: Reports: Normal Inspection Throat/Mouth: Reports: Normal Inspection Neck: Reports: Non-Tender, Normal Alignment, Normal Inspection Respiratory Exam: Reports: No Respiratory Distress, Lungs Clear, Normal Breath Sounds Cardiovascular: Reports: Regular Rate, Rhythm, No Edema, No Murmur GI/Abdominal: Reports: Soft, No Organomegaly, No Mass, Other (Mild tenderness to the lower abdomen and she has ecchymosis to the lower right abdomen) Course - Vital Signs Last Recorded V/S: Last Vital Signs Temp 97.9 F 09/27/16 16:03 Pulse 72 09/27/16 16:03 Resp 18 09/27/16 16:03 BP 98/54 L 09/27/16 16:03 Pulse Ox 98 09/27/16 16:03 - Orders/Labs/Meds Orders: Active Orders 24 hr Category Date Time Status Cardiac Monitoring [RC] . DIRECTED Care 09/27/16 09:45 Active EKG Documentation Completion [RC] STAT Care 09/27/16 09:46 Active Oxygen Therapy [RC] PRN Care 09/27/16 09:45 Active Peripheral IV Care [RC] . DIRECTED Care 09/27/16 09:46 Active Sodium Chloride 0.9% [Normal Saline] 1,000 ml Med 09/27/16 09:45 Active IV ASDIRECTED Sodium Chloride 0.9% [Normal Saline] 100 ml Med 09/27/16 10:00 Active IV ASDIRECTED Sodium Chloride 0.9% [Saline Flush] Med 09/27/16 09:45 Active 10 ml FLUSH ASDIRECTED PRN Peripheral IV Insertion Adult [OM.PC] Stat Oth 09/27/16 09:45 Ordered Transfuse Red Blood Cells [COMM] Stat Ot 09/27/16 12:19 Ordered Medication Orders Sodium Chloride (Normal Saline) 1,000 mls @ 125 mls/hr IV ASDIRECTED JILLIAN Last Admin: 09/27/16 10:23 Dose: 125 mls/hr Sodium Chloride (Normal Saline) 100 mls @ 60 mls/hr IV ASDIRECTED JILLIAN Last Admin: 09/27/16 10:15 Dose: 60 mls/hr Sodium Chloride (Saline Flush) 10 ml FLUSH ASDIRECTED PRN PRN Reason: Keep Vein Open Last Admin: 09/27/16 10:28 Dose: 10 ml Labs: Laboratory Tests 09/27/16 09/27/16 09/27/16 Range/Units 09:50 09:50 09:50 WBC 4.49 (3.98-10.04) K/mm3 RBC 2.40 L (3.98-5.22) M/mm3 Hgb 6.7 L* (11.2-15.7) gm/L Hct 21.3 L (34.1-44.9) % MCV 88.8 (79.4-94.8) fl MCH 27.9 (25.6-32.2) pg MCHC 31.5 L (32.2-35.5) g/dl RDW Std Deviation 49.8 H (36.4-46.3) fL Plt Count 187 (182-369) K/mm3 MPV 10.9 (9.4-12.3) fl Neut % (Auto) 70.2 (34.0-71.1) % Lymph % (Auto) 20.0 (19.3-51.7) % [place] % (Auto) 5.8 (4.7-12.5) % Eos % (Auto) 3.6 (0.7-5.8) Baso % (Auto) 0.2 (0.1-1.2) % Neut # (Auto) 3.15 (1.56-6.13) K/mm3 Lymph # (Auto) 0.90 L (1.18-3.74) K/mm3 [place] # (Auto) 0.26 (0.24-0.36) K/mm3 Eos # (Auto) 0.16 (0.04-0.36) K/mm3 Baso # (Auto) 0.01 (0.01-0.08) K/mm3 Manual Slide Review Abnormal smear PT 9.7 (8.0-13.0) SECONDS INR 0.90 APTT 23 (22-36) SECONDS Sodium 141 (136-145) mEq/L Potassium 3.7 (3.5-5.1) mEq/L Chloride 108 H (98-107) mEq/L Carbon Dioxide 24 (21-32) mEq/L Anion Gap 12.7 (5-15) BUN 9 (7-18) mg/dL Creatinine 0.7 (0.55-1.02) mg/dL Est Cr Clr Drug Dosing 117.02 mL/min Estimated GFR (MDRD) > 60 (>60) mL/min BUN/Creatinine Ratio 12.9 L (14-18) Glucose 96 (74-106) mg/dL Calcium 8.1 L (8.5-10.1) mg/dL Total Bilirubin 0.4 (0.2-1.0) mg/dL AST 17 (15-37) U/L ALT 26 (14-59) U/L Alkaline Phosphatase 65 (46-116) U/L Troponin I < 0.017 (0.00-0.056) ng/mL Total Protein 5.9 L (6.4-8.2) g/dl Albumin 2.9 L (3.4-5.0) g/dl Globulin 3.0 gm/dL Albumin/Globulin Ratio 1.0 (1-2) Blood Type Gel Antibody Screen Crossmatch 09/27/16 Range/Units 09:50 WBC (3.98-10.04) K/mm3 RBC (3.98-5.22) M/mm3 Hgb (11.2-15.7) gm/L Hct (34.1-44.9) % MCV (79.4-94.8) fl MCH (25.6-32.2) pg MCHC (32.2-35.5) g/dl RDW Std Deviation (36.4-46.3) fL Plt Count (182-369) K/mm3 MPV (9.4-12.3) fl Neut % (Auto) (34.0-71.1) % Lymph % (Auto) (19.3-51.7) % [place] % (Auto) (4.7-12.5) % Eos % (Auto) (0.7-5.8) Baso % (Auto) (0.1-1.2) % Neut # (Auto) (1.56-6.13) K/mm3 Lymph # (Auto) (1.18-3.74) K/mm3 [place] # (Auto) (0.24-0.36) K/mm3 Eos # (Auto) (0.04-0.36) K/mm3 Baso # (Auto) (0.01-0.08) K/mm3 Manual Slide Review PT (8.0-13.0) SECONDS INR APTT (22-36) SECONDS Sodium (136-145) mEq/L Potassium (3.5-5.1) mEq/L Chloride (98-107) mEq/L Carbon Dioxide (21-32) mEq/L Anion Gap (5-15) BUN (7-18) mg/dL Creatinine (0.55-1.02) mg/dL Est Cr Clr Drug Dosing mL/min Estimated GFR (MDRD) (>60) mL/min BUN/Creatinine Ratio (14-18) Glucose (74-106) mg/dL Calcium (8.5-10.1) mg/dL Total Bilirubin (0.2-1.0) mg/dL AST (15-37) U/L ALT (14-59) U/L Alkaline Phosphatase (46-116) U/L Troponin I (0.00-0.056) ng/mL Total Protein (6.4-8.2) g/dl Albumin (3.4-5.0) g/dl Globulin gm/dL Albumin/Globulin Ratio (1-2) Blood Type A POSITIVE Gel Antibody Screen Negative Crossmatch See Detail Meds: Medications Generic Name Dose Route Start Last Admin Trade Name Freq PRN Reason Stop Dose Admin Sodium Chloride 1,000 mls @ 125 mls/hr 09/27/16 09:45 09/27/16 10:23 Normal Saline IV 125 mls/hr ASDIRECTED JILLIAN Administration Sodium Chloride 100 mls @ 60 mls/hr 09/27/16 10:00 09/27/16 10:15 Normal Saline IV 60 mls/hr ASDIRECTED JILLIAN Administration Sodium Chloride 10 ml 09/27/16 09:45 09/27/16 10:28 Saline Flush FLUSH 10 ml ASDIRECTED PRN Administration Keep Vein Open Discontinued Medications Generic Name Dose Route Start Last Admin Trade Name Freq PRN Reason Stop Dose Admin Fentanyl 100 mcg 09/27/16 09:46 09/27/16 10:23 Sublimaze IVPUSH 09/27/16 09:47 100 mcg ONETIME ONE Administration Fentanyl 100 mcg 09/27/16 13:46 09/27/16 13:54 Sublimaze IVPUSH 09/27/16 13:47 100 mcg ONETIME ONE Administration Iopamidol 100 ml 09/27/16 09:52 09/27/16 10:15 Isovue-370 (76%) IVPUSH 09/27/16 09:53 100 ml ONETIME ONE Administration Oxycodone/Acetaminophen 2 tab 09/27/16 15:55 09/27/16 16:01 Percocet 325-5 Mg PO 09/27/16 15:56 2 tab ONETIME ONE Administration Sodium Chloride 10 ml 09/27/16 09:52 09/27/16 10:15 Saline Flush FLUSH 09/27/16 09:53 10 ml ONETIME ONE Administration - Re-Assessments/Exams Free Text/Narrative Re-Assessment/Exam: 09/27/16 11:47 I ordered an IV saline bolus, labs, EKG, US of her left leg and CT angio of her chest. Her EKG shows a NSR at a rate of 69 and no acute changes. Her WBC is normal. Her Hgb is low at 6.7. It was lower when in the hospital. She was 7.5 before discharge a few days ago. Her PT, INR and PTT are normal. Her CMP looks good. Her troponin is negative. The CT of her chest shows pulmonary arteries show no filling defects to indicate pulmonary embolism, bibasilar atelectasis noted. No additional abnormality is appreciated on CT study of the chest performed as a pulmonary angiogram protocol. I am waiting for the US report. 09/27/16 16:01 The US was negative for DVT. I called Dr Lake to up date him and we both agreed she needs a unit of blood. I have put the order in for that. She has some pain so I ordered some percocet x 2. Departure - Departure Time of Disposition: 17:45 Disposition: Home, Self-Care 01 Condition: good Clinical Impression: Left leg pain, Right-sided chest pain Traumatic ecchymosis of abdominal wall Qualifiers: Encounter type: initial encounter Qualified Code(s): S30.1XXA - Contusion of abdominal wall, initial encounter Anemia Qualifiers: Anemia type: unspecified type Qualified Code(s): D64.9 - Anemia, unspecified - Discharge Information Referrals: Raisa Wilson PA-C [Primary Care Provider] - 3 Days () Delano Lake MD [Physician] - 1 Week Forms: ED Department Discharge Additional Instructions: Take your medication as prescribed. Drink plenty of fluids and stay active. Please return if you are worse. Follow up with Dr Lake this week. - My Orders Last 24 Hours: My Active Orders 09/27/16 09:45 Cardiac Monitoring [RC] . DIRECTED Oxygen Therapy [RC] PRN Sodium Chloride 0.9% [Normal Saline] 1,000 ml IV ASDIRECTED Sodium Chloride 0.9% [Saline Flush] 10 ml FLUSH ASDIRECTED PRN Peripheral IV Insertion Adult [OM.PC] Stat 09/27/16 09:46 EKG Documentation Completion [RC] STAT Peripheral IV Care [RC] . DIRECTED 09/27/16 10:00 Sodium Chloride 0.9% [Normal Saline] 100 ml IV ASDIRECTED 09/27/16 12:19 Transfuse Red Blood Cells [COMM] Stat - Assessment/Plan Last 24 Hours: My Active Orders 09/27/16 09:45 Cardiac Monitoring [RC] . DIRECTED Oxygen Therapy [RC] PRN Sodium Chloride 0.9% [Normal Saline] 1,000 ml IV ASDIRECTED Sodium Chloride 0.9% [Saline Flush] 10 ml FLUSH ASDIRECTED PRN Peripheral IV Insertion Adult [OM.PC] Stat 09/27/16 09:46 EKG Documentation Completion [RC] STAT Peripheral IV Care [RC] . DIRECTED 09/27/16 10:00 Sodium Chloride 0.9% [Normal Saline] 100 ml IV ASDIRECTED 09/27/16 12:19 Transfuse Red Blood Cells [COMM] Stat
--- NOTE | 2016-09-27 11:54 | US ---
Left lower extremity deep venous ultrasound: Duplex and color flow imaging was obtained of the left common femoral, superficial femoral, popliteal, posterior tibial and peroneal veins. Right common femoral vein also was evaluated. Findings: Normal phasic flow, augmentation and compression is seen. Minimal fluid or possibly small popliteal cyst noted within the left posterior knee. Minimal subcutaneous edema seen within the lateral thigh. Incidental lymph node seen within the left groin. Impression: 1. Incidental findings as described above. No findings of deep venous thrombosis are seen within the left lower extremity or within the right common femoral vein. Diagnostic code #2
[2016-09-27] MEDS ORDERED: Acetaminophen/oxyCODONE 325-5 MG Tab PO ONE (15:55)
[2016-09-27 16:04] VITALS: BP 98/54
== END 2016-09-27 19:00 | disposition home or self-care (01) ==
LOC: JD.ED 09:32
DX: S30.1XXA Contusion of abdominal wall, initial encounter (principal); D64.9 Anemia, unspecified; M79.605 Pain in left leg; R07.9 Chest pain, unspecified; F41.9 Anxiety disorder, unspecified; F17.210 Nicotine dependence, cigarettes, uncomplicated; Z88.5 Allergy status to narcotic agent; Z79.899 Other long term (current) drug therapy; Z90.49 Acquired absence of other specified parts of digestive tract; X58.XXXA Exposure to other specified factors, initial encounter
CPT/HCPCS: 36415; 36430; 71275; 80053; 84484; 85025; 85610; 85730; 86850; 86900; 86901; 86922; 93005; 93971; 96361; 96374; 96376; 99284; A9270; J3010; J7030; J7040; J7050; P9016; Q9967

== ENCOUNTER 2016-11-27 10:51 | Emergency (ER) | payer MEDICAID ==
[2016-11-27 11:03] VITALS: BP 117/78
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
[2016-11-27 12:38] LABS: ACETAMINOPHEN 0 ug/mL (10-30)
== END 2016-11-27 13:40 | disposition home or self-care (01) ==
LOC: JD.ED 10:51
DX: L03.115 Cellulitis of right lower limb (principal); F63.9 Impulse disorder, unspecified; F41.9 Anxiety disorder, unspecified; F32.9 Major depressive disorder, single episode, unspecified; D64.9 Anemia, unspecified; F17.210 Nicotine dependence, cigarettes, uncomplicated; Z88.5 Allergy status to narcotic agent; Z90.49 Acquired absence of other specified parts of digestive tract; Z91.030 Bee allergy status; Z79.899 Other long term (current) drug therapy
CPT/HCPCS: 36415; 80053; 80306; 81001; 84443; 84702; 85025; 99285; G0480; 99284

== ENCOUNTER 2016-12-01 15:50 | Day surgery (SDC) | payer MEDICAID ==
[2016-12-01] MEDS ORDERED: fentaNYL 250 MCG/5 ML SDV ONE (16:42)
[2016-12-01] MEDS ORDERED: Lidocaine 1% 2 ML ONE (16:42)
[2016-12-01] MEDS ORDERED: Propofol 200 MG/20 ML SDV ONE ×2 (16:42→18:12)
[2016-12-01] MEDS ORDERED: Midazolam 1 MG/ML 2 ML SDV ONE (16:42)
[2016-12-01] MEDS ORDERED: Bupivacaine 0.25% 30 ML SDV ONE (16:42)
[2016-12-01] MEDS ORDERED: Sodium Bicarbonate 8.4% 50 MEQ/50 ML SDV ONE (16:43)
[2016-12-01] MEDS ORDERED: ceFAZolin 1 GM Vial ONE (16:43)
[2016-12-01] MEDS ORDERED: Lidocaine 0.5% 50 ML SDV ONE (16:43)
--- NOTE | 2016-12-01 16:43 | PCM.PREANE ---
Preanesthetic Assessment - Procedure Proposed Procedure: I&D and percutaneous pinning of right metacarpals - Anesthesia/Transfusion/Family Hx Anesthesia History: Prior Anesthesia Reaction Type of Anesthesia Reaction: Excessive Nausea/Vomiting Family History of Anesthesia Reaction: No Transfusion History: No Prior Transfusion(s) - Review of Systems General: No Symptoms Pulmonary: No Symptoms Cardiovascular: No Symptoms Gastrointestinal: No Symptoms Neurological: No Symptoms Other: Reports: None - Physical Assessment NPO Status Date: 12/01/16 NPO Status Time: 10:00 O2 Sat by Pulse Oximetry: 98 Respiratory Rate: 18 Vital Signs: Last Vital Signs Temp 37.2 C 12/01/16 16:23 Pulse 95 12/01/16 16:23 Resp 18 12/01/16 16:23 BP 120/74 12/01/16 16:23 Pulse Ox 98 12/01/16 16:23 Height: 1.8 m Weight: 85.275 kg ASA Class: 2 Mental Status: Alert & Oriented x3 Airway Class: Mallampati = 1 Dentition: Reports: Broken Tooth/Teeth (one broken tooth), Missing Tooth/Teeth ( one missing), Caries (poor dentition overall) Thyro-Mental Finger Breadths: 3 Mouth Opening Finger Breadths: 3 ROM/Head Extension: Full Lungs: Clear to Auscultation, Normal Respiratory Effort Cardiovascular: Regular Rate, Regular Rhythm, No Murmurs - Allergies Allergies/Adverse Reactions: Allergies Allergy/AdvReac Type Severity Reaction Status Date / Time hydromorphone HCl Allergy Hives Verified 12/01/16 16:29 [From Dilaudid] venom-honey bee Allergy Anaphylactic Verified 12/01/16 16:29 [bee venom (honey bee)] Shock preservatives in chicken Allergy Rash Uncoded 12/01/16 16:29 - Blood Blood Available: No - Acknowledgements Anesthesia Type Planned: DIANE Pt an Appropriate Candidate for the Planned Anesthesia: Yes Alternatives and Risks of Anesthesia Discussed w Pt/Guardian: Yes Pt/Guardian Understands and Agrees with Anesthesia Plan: Yes PreAnesthesia Questionnaire HEENT History: Reports: Impaired Vision, Other (See Below) Other HEENT History: wears contacts Cardiovascular History: Reports: Other (See Below) Other Cardiovascular History: DVT to left leg in Apr 2013 and September 2015 Gastrointestinal History: Reports: None Genitourinary History: Reports: None 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 grav 8 para 4 and 3 miscarriage, currenct ectopic September 2016 tubalectomy september 2016 Musculoskeletal History: Reports: Osteoarthritis Psychiatric History: Reports: Anxiety, Depression, Suicide Attempt, Suicidal Ideation Other Psychiatric History: has an appt to see [facility]day from [facility] on September 30 Hematologic History: Reports: Anemia, Iron Deficiency Other Hematologic History: pt is A positive - Past Surgical History HEENT Surgical History: Reports: Adenoidectomy, Tonsillectomy GI Surgical History: Reports: Appendectomy Female Surgical History: Reports: D&C Other Female Surgeries/Procedures: salpingectomy Musculoskeletal Surgical History: Reports: None - SUBSTANCE USE Smoking Status *Q: Current Every Day Smoker (smokes 1 ppd x 3 years) Tobacco Use Within Last Twelve Months: Cigarettes Second Hand Smoke Exposure: No Days Per Week of Alcohol Use: 0 (endorses drinking 1-2 drinks per month) Recreational Drug Use History: No 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) Recreational Drug Last Use: 2003 - HOME MEDS Home Medications: Home Meds Ibuprofen [IJD: Ibuprofen] 600 mg PO Q4H PRN #30 tablet 09/24/16 [Rx] Doxycycline [Vibramycin] 100 mg PO BID #20 cap 11/27/16 [Rx] LORazepam [Ativan] 0.5 mg PO Q8H #5 tablet 11/27/16 [Rx] - CURRENT (IN HOUSE) MEDS Current Meds: Current Medications Discontinued Medications Cefazolin Sodium (Ancef) Confirm Administered Dose 2 gm .ROUTE .STK-MED ONE Stop: 12/01/16 16:44 Fentanyl (Sublimaze) Confirm Administered Dose 250 mcg .ROUTE .STK-MED ONE Stop: 12/01/16 16:43 Lidocaine HCl (Xylocaine-Mpf 1%) Confirm Administered Dose 2 mls @ as directed .ROUTE .STK-MED ONE Stop: 12/01/16 16:43 Lidocaine HCl (Xylocaine-Mpf 0.5%) Confirm Administered Dose 50 ml .ROUTE .STK- MED ONE Stop: 12/01/16 16:44 Midazolam HCl (Versed 1 Mg/Ml) Confirm Administered Dose 2 mg .ROUTE .STK-MED ONE Stop: 12/01/16 16:43 Propofol (Diprivan 20 Ml) Confirm Administered Dose 200 mg .ROUTE .STK-MED ONE Stop: 12/01/16 16:43 Sodium Bicarbonate (Sodium Bicarbonate 8.4%) Confirm Administered Dose 50 meq .ROUTE .STK-MED ONE Stop: 12/01/16 16:44
[2016-12-01] MEDS ORDERED: fentaNYL 100 MCG/2 ML SDV IVPUSH PRN (18:30)
--- NOTE | 2016-12-01 18:35 | PCM48HPAN ---
Post Anesthesia Note - EVALUATION WITHIN 48HRS OF ANESTHETIC Vital Signs in Normal Range: Yes Patient Participated in Evaluation: Yes Respiratory Function Stable: Yes Airway Patent: Yes Cardiovascular Function Stable: Yes Hydration Status Stable: Yes Pain Control Satisfactory: Yes Nausea and Vomiting Control Satisfactory: Yes Mental Status Recovered: Yes
[2016-12-01] MEDS ORDERED: Acetaminophen/HYDROcodone 325-5 MG Tab PO ONE (18:51)
[2016-12-01 20:01] VITALS: BP 126/77
--- NOTE | 2016-12-02 07:39 | CR ---
Right fifth finger: Multiple fluoroscopic spot views were obtained utilizing C-arm device centered to the right fifth metacarpal. Comparison: Previous right hand exam performed earlier on the same day (1:42 PM). Previous angulated fracture shows reduction. Two pins are seen on the final films across the fracture line. Fluoroscopy time given as 60.0 seconds. Impression: 1. Reduction and fixation of previous distal right fifth metacarpal fracture. Diagnostic code #2
--- NOTE | 2016-12-05 20:38 | PCM.OPNOTE ---
- General Post-Op/Procedure Note Date of Surgery/Procedure: 12/01/16 Operative Procedure(s): irrigation and debridement with percutaneous pinning of displaced open right fifth metacarpal neck fracture Pre Op Diagnosis: grade 1 open right fifth metacarpal neck fracture Post-Op Diagnosis: Same Anesthesia Technique: Regional Block Primary Surgeon: Nic St Anesthesia Provider: Gregory Conrad Furniture Sander: Cee Henderson Furniture Sander: Neo Cochran EBL in mLs: 10 Complications: None Condition: Good
--- NOTE | 2016-12-05 21:51 | OR ---
DATE OF OPERATION: 12/01/2016 SURGEON: Nic St MD OPERATION PERFORMED: Irrigation and debridement of 2 sq cm with percutaneous pinning, displaced open right fifth metacarpal neck fracture. PREOPERATIVE DIAGNOSIS: Grade 1 open right fifth metacarpal neck fracture. POSTOPERATIVE DIAGNOSIS: Grade 1 open right fifth metacarpal neck fracture. ANESTHESIA: Technique, regional [place] block. ANESTHESIA PROVIDER: Gregory Conrad MD. PERSONAL SECRETARY: IRWIN Campos and Neo Cochran, PGY-3. ESTIMATED BLOOD LOSS: 10 mL. COMPLICATIONS: None. CONDITION: Stable. DESCRIPTION OF PROCEDURE: The patient was identified in the preoperative holding area, proper site was marked and identified by the surgeon. The patient was taken back to the operating theater, where after adequate anesthesia the patient's right upper extremity was sterilely prepped and draped in usual sterile fraction. OR time- out was performed. The patient received 2 g IV Ancef. At this time, incision was made over the small focal area of the dorsum of the right fifth metacarpal neck. Tourniquet was not used at this time. The skin and soft tissue less than 2 sq cm was then irrigated and debrided of all devitalized tissue, especially in the subcutaneous tissues. At this time, two 0.49 K-wires were placed in retrograde fashion from distal to proximal and it was found to have adequate fixation with reduction of fifth metacarpal neck fracture with no volar tilt noted. At this time, it was found to be adequate fixation. Previous to this fixation, a 6 L normal saline was irrigated through the wound while the irrigation and debridement was being performed. At this time, the skin was closed, the pins were bent and cut. The patient was placed in a sterile soft dressing in an ulnar gutter splint. The patient tolerated the procedure well and was sent to PACU in stable condition. MMODAL /[id number]
== END 2016-12-01 17:00 | disposition home or self-care (01) ==
LOC: JD.ED 15:50 → JD.SDS 15:50 → EDSTATUS 16:00 → JD.SDS 17:00 → JD.ED 17:00
PROVIDERS: ATTEND Orthopaedic Surgery
DX: S62.336B Displaced fracture of neck of fifth metacarpal bone, right hand, initial encounter for open fracture (principal); F41.9 Anxiety disorder, unspecified; F32.9 Major depressive disorder, single episode, unspecified; Z88.8 Allergy status to other drugs, medicaments and biological substances; Z91.030 Bee allergy status; Z79.899 Other long term (current) drug therapy; Z91.018 Allergy to other foods; Z90.49 Acquired absence of other specified parts of digestive tract; Z98.890 Other specified postprocedural states; F17.210 Nicotine dependence, cigarettes, uncomplicated
CPT/HCPCS: 11010; 26608; 76000; 99284; A9270; C1713; C1769; J0690; J2250; J3010; 00400; J2704; J3490

== ENCOUNTER 2017-04-15 21:31 | Emergency (ER) | payer MEDICAID ==
[2017-04-15 21:42] VITALS: BP 114/70
--- NOTE | 2017-04-15 22:24 | EDM.PDOC ---
ED HPI GENERAL MEDICAL PROBLEM - General Chief Complaint: Back Pain or Injury Stated Complaint: LOWER BACK PAIN HIPS AND LEGS TO THE KNEE Time Seen by Provider: 04/15/17 21:36 Source of Information: Reports: Patient History Limitations: Reports: No Limitations - History of Present Illness INITIAL COMMENTS - FREE TEXT/NARRATIVE: This is a 41-year-old female. She comes tonight because she started having increasing low back pain with pain running down her legs. She apparently has a history of bulging disc and herniated disc in her lower back and has had steroid injections in her back in the past. She's had this pain down her legs also in the past. She tells me that her neurologist suggested she might need surgery in her lower back if things seem to get worse. Well she indicates she has been worse at least for the last year but [facility] to help with her pain. She has not bothered to follow-up with her back specialist. She denies any change in bowel or bladder and no incontinence. Lower Back Pain Score (Numeric/FACES): 10 - Related Data Allergies Allergy/AdvReac Type Severity Reaction Status Date / Time hydromorphone HCl Allergy Hives Verified 12/01/16 16:29 [From Dilaudid] venom-honey bee Allergy Anaphylactic Verified 12/01/16 16:29 [bee venom (honey bee)] Shock preservatives in chicken Allergy Rash Uncoded 12/01/16 16:29 Home Meds: Home Meds Doxycycline [Vibramycin] 100 mg PO BID #20 cap 11/27/16 [Rx] LORazepam [Ativan] 0.5 mg PO Q8H #5 tablet 11/27/16 [Rx] Orphenadrine [Norflex] 100 mg PO BID PRN #20 tab.er 04/15/17 [Rx] traMADol [Ultram] 50 mg PO Q8H PRN #15 tablet 04/15/17 [Rx] Past Medical History HEENT History: Reports: Impaired Vision, Other (See Below) Other HEENT History: wears contacts Cardiovascular History: Reports: Other (See Below) Other Cardiovascular History: DVT to left leg in Apr 2013 and September 2015 Gastrointestinal History: Reports: None Genitourinary History: Reports: None 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 grav 8 para 4 and 3 miscarriage, currenct ectopic September 2016 tubalectomy september 2016 Musculoskeletal History: Reports: Osteoarthritis Psychiatric History: Reports: Anxiety, Depression, Suicide Attempt, Suicidal Ideation Other Psychiatric History: has an appt to see [facility] from [facility] on September 30 Hematologic History: Reports: Anemia, Iron Deficiency Other Hematologic History: pt is A positive - Past Surgical History HEENT Surgical History: Reports: Adenoidectomy, Tonsillectomy GI Surgical History: Reports: Appendectomy Female Surgical History: Reports: D&C Other Female Surgeries/Procedures: salpingectomy Musculoskeletal Surgical History: Reports: None Social & Family History - Family History Family Medical History: Noncontributory Cardiac: Reports: [place] Respiratory: Reports: COPD Neurological: Reports: CVA Endocrine/Metabolic: Reports: Diabetes, type II - Tobacco Use Smoking Status *Q: Current Every Day Smoker Years of Tobacco use: 4 Packs/Tins Daily: 0.5 Used Tobacco, but Quit: Yes Month Tobacco Last Used: Apr 2012 Second Hand Smoke Exposure: No - Caffeine Use Caffeine Use: Reports: Soda, Tea - Alcohol Use Days Per Week of Alcohol Use: 0 (endorses drinking 1-2 drinks per month) - Recreational Drug Use Recreational Drug Use: No Drug Use in Last 12 Months: No 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) Other Recreational Drug Type: 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, 2004) Recreational Drug Use Frequency: Not Used In Over 1 Year Recreational Drug Last Use: 2003 - Living Situation & Occupation Living situation: Reports: , with Spouse, with Family Occupation: Employed ED ROS GENERAL - Review of Systems Review Of Systems: See Below Constitutional: Denies: Fever, Chills HEENT: Reports: No Symptoms Respiratory: Reports: No Symptoms Cardiovascular: Reports: No Symptoms Endocrine: Reports: No Symptoms GI/Abdominal: Reports: No Symptoms : Reports: No Symptoms Musculoskeletal: Reports: Other (Chronic back symptoms) Skin: Reports: No Symptoms Neurological: Reports: Other (History of sciatica) Psychiatric: Reports: No Symptoms Hematologic/Lymphatic: Reports: No Symptoms ED EXAM,LOWER BACK PAIN/INJURY - Physical Exam Exam: See Below Exam Limited By: No Limitations General Appearance: Alert, WD/WN, No Apparent Distress Eye Exam: Bilateral Eye: Normal Inspection Ears: Normal External Exam Nose: Normal Inspection Throat/Mouth: Normal Inspection, Normal Lips, Normal Voice Head: Normocephalic Neck: Supple Respiratory/Chest: No Respiratory Distress Back Exam: Other (She has tenderness in the lower lumbar area and sacral region on palpation and some mild paraspinal muscle tenderness, the vertebral column midline does not appear to be that tender, her pain that radiates down her legs tends to be on the anterior thigh tops of the knee, where she points to her legs suggested it spams the dermatomes of L2-L3 and L4 on both legs, she is able to ambulate and able to sit up and lie down in bed without much difficulty , no numbness no tingling in the lower extremities or the foot or toes bilaterally) Extremities: Normal Inspection, Normal Range of Motion Neurological: Alert, Normal Mood/Affect Psychiatric: Normal Affect, Normal Mood Skin Exam: Warm, Dry Course - Vital Signs Last Recorded V/S: Last Vital Signs Temp 97.5 F 04/15/17 21:40 Pulse 89 04/15/17 21:40 Resp 20 04/15/17 21:40 BP 114/70 04/15/17 21:40 Pulse Ox 98 04/15/17 21:40 - Orders/Labs/Meds Orders: Active Orders 24 hr Category Date Time Status Ketorolac [Toradol] Med 04/15/17 22:26 Once 60 mg IM ONETIME ONE Meds: Medications Discontinued Medications Generic Name Dose Route Start Last Admin Trade Name Freq PRN Reason Stop Dose Admin Ketorolac Tromethamine 60 mg 04/15/17 22:26 Toradol IM 04/15/17 22:27 ONETIME ONE Departure - Departure Time of Disposition: 22:27 Disposition: Home, Self-Care 01 Condition: Fair Clinical Impression: Lumbar pain with radiation down both legs, Bilateral sciatica - Discharge Information Prescriptions: Orphenadrine [Norflex] 100 mg PO BID PRN #20 tab.er PRN Reason: Spasms traMADol [Ultram] 50 mg PO Q8H PRN #15 tablet PRN Reason: Pain Instructions: Back Pain, Adult, [id number] Referrals: Susan Mejia GLASS SELECTOR [Primary Care Provider] - Forms: ED Department Discharge Additional Instructions: Start taking some Aleve 2 tablets twice a day to help with the back inflammation , use the Norflex as needed for muscle spasms, take the tramadol as needed for pain, use ice or heat to your back to help with the symptoms, you must follow- up with your back specialist this week for recheck and possible MRI of your lumbar spine, return to the ER if needed - My Orders Last 24 Hours: My Active Orders 04/15/17 22:26 Ketorolac [Toradol] 60 mg IM ONETIME ONE - Assessment/Plan Last 24 Hours: My Active Orders 04/15/17 22:26 Ketorolac [Toradol] 60 mg IM ONETIME ONE
[2017-04-15] MEDS ORDERED: Ketorolac 60 MG/2 ML SDV IM ONE (22:26)
== END 2017-04-15 22:45 | disposition home or self-care (01) ==
LOC: JD.ED 21:31
DX: M54.42 Lumbago with sciatica, left side (principal); M54.41 Lumbago with sciatica, right side; F17.210 Nicotine dependence, cigarettes, uncomplicated; F32.9 Major depressive disorder, single episode, unspecified; Z88.5 Allergy status to narcotic agent; Z91.030 Bee allergy status; Z91.018 Allergy to other foods
CPT/HCPCS: 96372; 99283; J1885

== ENCOUNTER 2017-09-07 11:32 | Emergency (ER) | payer MEDICAID ==
[2017-09-07 11:48] VITALS: BP 113/72
[2017-09-07] MEDS ORDERED: Sodium Chloride 0.9% 1,000 ML IV ONE (12:13)
[2017-09-07] MEDS ORDERED: Ondansetron 4 MG/2 ML SDV IVPUSH ONE ×2 (12:13→15:15)
[2017-09-07] MEDS ORDERED: Alum Hydrox/Mag Hydrox/Simeth 30 ML, Lidocaine 2% 15 ML PO ONE ×2 (12:22)
[2017-09-07] MEDS ORDERED: Sodium Chloride 0.9% 10 ML Syringe FLUSH PRN (12:22)
--- NOTE | 2017-09-07 12:26 | EDM.PDOC ---
<Leona Kenney - Last Filed: 09/07/17 12:40> ED HPI GENERAL MEDICAL PROBLEM - General Chief Complaint: Abdominal Pain Stated Complaint: STOMACH PAIN/NAUSEA Time Seen by Provider: 09/07/17 12:17 Source of Information: Reports: Patient History Limitations: Reports: No Limitations - History of Present Illness INITIAL COMMENTS - FREE TEXT/NARRATIVE: Patient is a 42 YO female who presents today with diarrhea, nausea, and abdominal pain. She states the diarrhea started 2 days ago and is described as very watery but no blood visible. She then became nauseous yesterday afternoon, denies vomiting. She then had sudden onset of epigastric pain that is burning in nature. She does have some pain radiating substernal that is also burning in nature. The pain gets worse with dry heaves and any movement. She denies any questionable food and has not been around anyone sick. She started Chantix 1 weeks ago and has completely quit smoking. She was smoking 1/2 pack per day. She drinks alcohol rarely. Her last meal was cabbage rolls yesterday around 1700. She denies recent fever. LMP August 22. She is not on control Upper Abdomen Pain Score (Numeric/FACES): 7 - Related Data Allergies Allergy/AdvReac Type Severity Reaction Status Date / Time hydromorphone HCl Allergy Hives Verified 09/07/17 11:48 [From Dilaudid] venom-honey bee Allergy Anaphylactic Verified 09/07/17 11:48 [bee venom (honey bee)] Shock preservatives in chicken Allergy Rash Uncoded 09/07/17 11:48 Home Meds: Home Meds LORazepam [Ativan] 0.5 mg PO Q8H #5 tablet 11/27/16 [Rx] Escitalopram Oxalate [Lexapro] 0.25 mg PO DAILY 09/07/17 [History] Omeprazole 20 mg PO DAILY #30 cap.sr 09/07/17 [Rx] Ondansetron [Zofran ODT] 4 mg PO Q6H PRN #20 tab.dis 09/07/17 [Rx] Varenicline [Chantix Dose Pack] 1 tab PO DAILY 09/07/17 [History] Past Medical History HEENT History: Reports: Impaired Vision, Other (See Below) Other HEENT History: wears contacts Cardiovascular History: Reports: Other (See Below) Other Cardiovascular History: DVT to left leg in Apr 2013 and September 2015 Gastrointestinal History: Reports: None Genitourinary History: Reports: None 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 grav 8 para 4 and 3 miscarriage, currenct ectopic September 2016 tubalectomy september 2016 Musculoskeletal History: Reports: Osteoarthritis Psychiatric History: Reports: Anxiety, Depression, Suicide Attempt, Suicidal Ideation Other Psychiatric History: has an appt to see Dayday from [facility] on September 30 Hematologic History: Reports: Anemia, Iron Deficiency Other Hematologic History: pt is A positive - Past Surgical History HEENT Surgical History: Reports: Adenoidectomy, Tonsillectomy GI Surgical History: Reports: Appendectomy Female Surgical History: Reports: D&C Other Female Surgeries/Procedures: salpingectomy Musculoskeletal Surgical History: Reports: None Social & Family History - Family History Family Medical History: Noncontributory Cardiac: Reports: [place] Respiratory: Reports: COPD Neurological: Reports: CVA Endocrine/Metabolic: Reports: Diabetes, type II - Tobacco Use Smoking Status *Q: Former Smoker Years of Tobacco use: 4 Packs/Tins Daily: 0.5 Used Tobacco, but Quit: Yes Month/Year Tobacco Last Used: 1 week ago Second Hand Smoke Exposure: No - Caffeine Use Caffeine Use: Reports: Coffee, Soda - Alcohol Use Days Per Week of Alcohol Use: 0 (endorses drinking 1-2 drinks per month) - Recreational Drug Use Recreational Drug Use: Yes Drug Use in Last 12 Months: No 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 Denies: Bloody Stool, Vomiting : Reports: No Symptoms Musculoskeletal: Reports: No Symptoms Skin: Reports: No Symptoms Neurological: Reports: No Symptoms Psychiatric: Reports: No Symptoms ED EXAM, GI/ABD - Physical Exam Exam: See Below Exam Limited By: No Limitations General Appearance: Alert, WD/WN, No Apparent Distress Eyes: Bilateral: EOMI Throat/Mouth: Normal Oropharynx, Other (slightly dry oral mucosa, dry lips) Respiratory/Chest: No Respiratory Distress, Lungs Clear, Normal Breath Sounds Cardiovascular: Normal Peripheral Pulses, Regular Rate, Rhythm, No Murmur GI/Abdominal Exam: Normal Bowel Sounds, Soft, Tender (epigastric pain and LLQ pain. Most pain is in the epigastric region). No: Distended, Rebound Back Exam: Normal Inspection Neurological: Alert, Oriented, CN II-XII Intact, Normal Cognition, No Motor/ Sensory Deficits Psychiatric: Normal Affect, Normal Mood Skin Exam: Warm, Dry, Intact, Normal Color, No Rash Course - Vital Signs Last Recorded V/S: Last Vital Signs Temp 36.6 C 09/07/17 11:47 Pulse 61 09/07/17 11:47 Resp 18 09/07/17 11:47 BP 113/72 09/07/17 11:47 Pulse Ox 97 09/07/17 11:47 - Orders/Labs/Meds Labs: Laboratory Tests 09/07/17 09/07/17 09/07/17 Range/Units 13:10 13:10 13:10 WBC 7.48 (3.98-10.04) K/mm3 RBC 4.46 (3.98-5.22) M/mm3 Hgb 13.1 (11.2-15.7) gm/L Hct 41.1 (34.1-44.9) % MCV 92.2 (79.4-94.8) fl MCH 29.4 (25.6-32.2) pg MCHC 31.9 L (32.2-35.5) g/dl RDW Std Deviation 43.7 (36.4-46.3) fL Plt Count 241 (182-369) K/mm3 MPV 10.4 (9.4-12.3) fl Neutrophils % (Manual) 69 H (40-60) % Band Neutrophils % 0 (0-10) % Lymphocytes % (Manual) 25 (20-40) % Atypical Lymphs % 0 % Monocytes % (Manual) 3 (2-10) % Eosinophils % (Manual) 2 (0.7-5.8) % Basophils % (Manual) 1 (0.1-1.2) Platelet Estimate Adequate RBC Morph Comment Normal Sodium 140 (136-145) mEq/L Potassium 4.1 (3.5-5.1) mEq/L Chloride 105 (98-107) mEq/L Carbon Dioxide 26 (21-32) mEq/L Anion Gap 13.1 (5-15) BUN 11 (7-18) mg/dL Creatinine 0.7 (0.55-1.02) mg/dL Est Cr Clr Drug Dosing 115.82 mL/min Estimated GFR (MDRD) > 60 (>60) mL/min BUN/Creatinine Ratio 15.7 (14-18) Glucose 92 (74-106) mg/dL Calcium 9.0 (8.5-10.1) mg/dL Total Bilirubin 0.7 (0.2-1.0) mg/dL AST 10 L (15-37) U/L ALT 13 L (14-59) U/L Alkaline Phosphatase 81 (46-116) U/L C-Reactive Protein 0.6 (<1.0) mg/dL Total Protein 7.1 (6.4-8.2) g/dl Albumin 3.9 (3.4-5.0) g/dl Globulin 3.2 gm/dL Albumin/Globulin Ratio 1.2 (1-2) Lipase 72 L (73-393) U/L HCG, Qual Negative (NEGATIVE) Meds: Medications Discontinued Medications Generic Name Dose Route Start Last Admin Trade Name Freq PRN Reason Stop Dose Admin Al Hydroxide/Mg Hydroxide 30 0 ml 09/07/17 12:22 09/07/17 12:39 ml/ Lidocaine HCl 15 ml PO 09/07/17 12:23 45 ml ONETIME ONE Administration Dicyclomine HCl 20 mg 09/07/17 15:18 09/07/17 15:29 Bentyl IM 09/07/17 15:19 20 mg ONETIME ONE Administration Famotidine 20 mg 09/07/17 12:58 09/07/17 13:13 Pepcid IVPUSH 09/07/17 12:59 20 mg ONETIME ONE Administration Sodium Chloride 1,000 mls @ 999 mls/hr 09/07/17 12:13 09/07/17 12:40 Normal Saline IV 09/07/17 13:13 999 mls/hr ONETIME ONE Administration Ketorolac Tromethamine 30 mg 09/07/17 13:50 09/07/17 13:57 Toradol IVPUSH 09/07/17 13:51 30 mg ONETIME ONE Administration Ondansetron HCl 4 mg 09/07/17 12:13 09/07/17 12:39 Zofran IVPUSH 09/07/17 12:14 4 mg ONETIME ONE Administration Ondansetron HCl 4 mg 09/07/17 15:15 09/07/17 15:20 Zofran IVPUSH 09/07/17 15:16 4 mg ONETIME ONE Administration Sodium Chloride 10 ml 09/07/17 12:22 09/07/17 12:39 Saline Flush FLUSH 10 ml ASDIRECTED PRN Administration Keep Vein Open Departure - Departure Disposition: Home, Self-Care 01 Clinical Impression: Gastritis, Nausea - Discharge Information Prescriptions: Omeprazole 20 mg PO DAILY #30 cap.sr Ondansetron [Zofran ODT] 4 mg PO Q6H PRN #20 tab.dis PRN Reason: Nausea Instructions: Nausea, Adult, Gastritis, Adult, [id number] Referrals: Susan Mejia MANAGER [employer] [Primary Care Provider] - Forms: ED Department Discharge Additional Instructions: Take the Zofran 1 tab sublingual every 6 hours as needed for nausea. Omeprazole 1 tab daily. Follow-up with your primary care provider this week or next week for recheck of your symptoms. Please return to the ER for symptoms change or worsen. <Rocio Hathaway Luciana - Last Filed: 09/08/17 20:36> ED HPI GENERAL MEDICAL PROBLEM - History of Present Illness INITIAL COMMENTS - FREE TEXT/NARRATIVE: I have seen the patient and agree with the HPI as documented by KEVAN Cobos. Course - Re-Assessments/Exams Free Text/Narrative Re-Assessment/Exam: 09/07/17 15:19 I've seen the patient and agree with the history of present illness, review systems and physical exam as documented by KEVAN Cobos. I reviewed the labs with the patient. She reports very little pain relief despite the Pepcid, GI cocktail and Toradol. Does not appear to be in any obvious discomfort. I did search on the prescription drug registry. She has received 10 Rx from 4 prescribers for controlled substances within the last year. I have her some Bentyl and start her on some omeprazole as I do feel this is gastritis. Very likely that she is expressing side effects from the Chantix, however, I will have her discuss with her primary care provider if she would like to discontinue this. Discharge instructions as documented. Departure - Departure Time of Disposition: 15:20 Condition: Fair
[2017-09-07] MEDS ORDERED: Famotidine 20 MG/2 ML SDV IVPUSH ONE (12:58)
--- NOTE | 2017-09-07 13:39 | CR ---
Abdomen: Supine and upright views of the abdomen were obtained. Comparison: No prior abdominal x-ray, previous CT abdomen and pelvis exam of 07/31/14. Scattered gas within small bowel and colon is seen which appears within normal limits. No abnormal calcifications or soft tissue abnormality is seen. Disc space narrowing is noted at L4-L5. Bony structures are otherwise unremarkable. No free air is seen. Impression: 1. Incidental findings. Diagnostic code #2
[2017-09-07] MEDS ORDERED: Ketorolac 30 MG/ML SDV IVPUSH ONE (13:50)
[2017-09-07] MEDS ORDERED: Dicyclomine 20 MG/2 ML SDV IM ONE (15:18)
== END 2017-09-07 15:42 | disposition home or self-care (01) ==
LOC: JD.ED 11:32
DX: K29.70 Gastritis, unspecified, without bleeding (principal); Z88.5 Allergy status to narcotic agent; Z91.030 Bee allergy status; Z91.018 Allergy to other foods; Z87.891 Personal history of nicotine dependence
CPT/HCPCS: 36415; 74019; 80053; 83690; 84703; 85025; 86140; 96361; 96372; 96374; 96375; 96376; 99284; A9270; J0500; J1885; J2405; J7040; J7050

== ENCOUNTER 2018-07-24 11:01 | Inpatient (IN) | payer MEDICAID ==
[2018-07-24] MEDS ORDERED: Nalbuphine 20 MG/ML 1 ML Syringe IVPUSH PRN (11:24)
[2018-07-24] MEDS ORDERED: Sodium Chloride 0.9% 10 ML Syringe FLUSH PRN (11:24)
--- NOTE | 2018-07-24 11:24 | PCM.LDHP ---
L&D History of Present Illness - General Date of Service: 07/24/18 Admit Problem/Dx: Admission Diagnosis/Problem Admission Diagnosis/Problem Source of Information: Patient History Limitations: Reports: No Limitations - History of Present Illness Introduction:: Papo Rowland is a 42-year-old 034 at 38 weeks 1 day by 9 week ultrasound who presented to clinic today following biophysical profile. Her BPP was 8/8 with JACK 11.76 cm. Estimated weight, however, continue to measure small with a estimated weight of 2695 g (9th percentile). Patient was not having any contractions or uterine cramping in the office. She denies any leaking of fluid or vaginal bleeding. She reports that she had been continuing with her Lovenox with her last dose yesterday. Associated Symptoms: Denies: vaginal bleeding, vaginal discharge, vaginal fluid Present Illness Comments:: Papo Rowland is a 42-year-old 034 at 38 weeks 1 day by 9 week ultrasound. She has had a routine care with Dr. Bruner starting at 10 weeks gestational age. She declined TDaP and flu vaccine in . She had a history of DVT 2 in the past and had evaluation by Dr. Hernandez [facility], who recommended that she start on Lovenox for prophylaxis. labs Blood type: A+ Antibody screen: Negative First trimester hematocrit/hemoglobin: 39.9%/13.2 on 01/09/2018 Platelets: 240 on 01/02/1970 T and Urine culture: Mixed tobias suggestive contamination Rubella status: Immune Hepatitis B surface antigen: [Negative] RPR: [Negative] HIV: [Negative] Gonorrhea: [Negative] Chlamydia: [Negative][ Anatomy ultrasound:] Normal anatomy ultrasound, right lateral placenta One hour glucose tolerance test: 122 Second trimester hematocrit/hemoglobin: 36.0%/11.8 on 04/26/2018 Platelets: 206 on 04/26/2018 GBS status: Negative Third trimester hematocrit/hemoglobin: 36.7%/12.0 on 07/10/2018 Third trimester platelets: 201 on 07/10/2018 Her has been complicated by: * Advanced maternal age and declined genetic screening * Intrauterine growth restriction with estimated weight of 2695 g on 2018 which puts her at the 9th percentile. Recommend for induction and delivery due to IUGR after 38 weeks gestational age. * History of thromboembolism 2 and was on Lovenox 40 mg twice a day but did not take routinely throughout the . Patient to start on Lovenox 1.5 mg /kg once daily after delivery * Tobacco use in - Related Data Allergies/Adverse Reactions: Allergies Allergy/AdvReac Type Severity Reaction Status Date / Time hydromorphone HCl Allergy Fainting Verified 07/01/18 20:19 [From Dilaudid] venom-honey bee Allergy Anaphylactic Verified 09/07/17 11:48 [bee venom (honey bee)] Shock preservatives in chicken Allergy Rash Uncoded 09/07/17 11:48 Home Medications: Home Meds Acetaminophen/HYDROcodone [[place] 325-5 MG] 1 tab PO Q6H PRN #10 tablet 12/23/17 [Rx] Cyclobenzaprine [Flexeril] 10 mg PO Q6H PRN 12/23/17 [History] Past Medical History HEENT History: Reports: Impaired Vision, Other (See Below) Other HEENT History: wears contacts Cardiovascular History: Reports: Other (See Below) Other Cardiovascular History: DVT to left leg in Apr 2013 and September 2015 Gastrointestinal History: Reports: None Genitourinary History: Reports: None 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 grav 8 para 4 and 3 miscarriage, currenct ectopic September 2016 tubalectomy september 2016 Musculoskeletal History: Reports: Osteoarthritis Psychiatric History: Reports: Anxiety, Depression, Suicide Attempt, Suicidal Ideation Other Psychiatric History: has an appt to see Dayday from [facility] on September 30 Hematologic History: Reports: Anemia, Iron Deficiency Other Hematologic History: pt is A positive - Past Surgical History HEENT Surgical History: Reports: Adenoidectomy, Tonsillectomy GI Surgical History: Reports: Appendectomy Female Surgical History: Reports: D&C Other Female Surgeries/Procedures: salpingectomy Musculoskeletal Surgical History: Reports: None Social & Family History - Family History Family Medical History: Noncontributory Cardiac: Reports: [place] Respiratory: Reports: COPD Neurological: Reports: CVA Endocrine/Metabolic: Reports: Diabetes, type II - Tobacco Use Smoking Status *Q: Current Every Day Smoker - Tobacco Core Measures Tobacco Use/Smoking Within Last 30 Days: Yes Smoking Frequency Within Last 30 Days: Reports: Five or More Cigarettes Per Day Desires Tobacco Cessation Medication: Refuses FDA Approved Med - Caffeine Use Caffeine Use: Reports: Soda, Tea - Alcohol Use Alcohol Use History: No - Recreational Drug Use Recreational Drug Use: No Drug Use in Last 12 Months: No - Living Situation & Occupation Living situation: Reports: , with Spouse, with Family Occupation: Employed H&P Review of Systems - Review of Systems: Review Of Systems: See Below General: Denies: Fever, Chills, Malaise, Weakness, Fatigue HEENT: Denies: Hearing Changes, Sinus Congestion, Sore Throat, Visual Changes Pulmonary: Denies: Shortness of Breath, Wheezing, Cough Cardiovascular: Denies: Chest Pain, Palpitations, Dyspnea on Exertion Gastrointestinal: Reports: Diarrhea. Denies: Abdominal Pain, Constipation, Nausea, Vomiting Genitourinary: Denies: Dysuria, Frequency, Burning, Pain, Urgency Musculoskeletal: Reports: Back Pain (and hip pain of ) Skin: Denies: Rash, Lesions Psychiatric: Denies: Confusion, Depression, Anxiety Hematologic/Lymphatic: Denies: Anemia L&D Exam - Exam Exam: See Below - Vital Signs Vital Signs: BP: 116/60 Weight: 98.157 kg - OB Specific Fundal Height In cm: 36 Contraction Duration (sec): 0 Contraction Frequency (min): 0 Movement: Active Heart Tones per Min: 134 Presentation: Transverse (head maternal right) Estimated Weight: 2695 g (5 lbs 15 oz) by U/S today - Exam General: Alert, Oriented HEENT: Conjunctiva Clear, EOMI Neck: Supple, Trachea Midline Lungs: Clear to Auscultation, Normal Respiratory Effort Cardiovascular: Regular Rate, Regular Rhythm GI/Abdominal Exam: Soft, Non-Tender, No Distention, Other (gravid). No: Guarding, Rigid, Rebound Back Exam: Normal Inspection, Full Range of Motion Extremities: Normal Inspection, No Pedal Edema Skin: Warm, Dry, Intact Psychiatric: Alert, Normal Affect, Normal Mood - Problem List (1) 38 weeks gestation of SNOMED Code(s): 84266239 ICD Code: Z3A.38 - 38 WEEKS GESTATION OF Status: Acute Current Visit: Yes (2) IUGR (intrauterine growth restriction) affecting care of mother SNOMED Code(s): 971088889 ICD Code: O36.5990 - MATERN CARE FOR OTH OR SUSP POOR FETL GRTH, UNSP TRI, UNSP Status: Acute Current Visit: Yes (3) History of DVT (deep vein thrombosis) SNOMED Code(s): 816348204 ICD Code: Z86.718 - PERSONAL HISTORY OF OTHER VENOUS THROMBOSIS AND EMBOLISM Status: Acute Current Visit: Yes (4) AMA (advanced maternal age) multigravida 35+ SNOMED Code(s): 633959234 ICD Code: O09.529 - SUPERVISION OF ELDERLY MULTIGRAVIDA, UNSPECIFIED TRIMESTER Status: Acute Current Visit: Yes Problem List Initiated/Reviewed/Updated: Yes Assessment/Plan Comment:: Papo Rowland is a 42-year-old 034 at 38 weeks 1 day with intrauterine growth restriction and transverse lie. Refer to observation for medical induction of labor versus section currently in transverse lie with head to maternal right. Patient desires attempt of external cephalic version and if successful with like to proceed with medical induction of labor. Plan to evaluate cervix for method of induction if successful with external cephalic version. Continuous monitoring Place IV and have Lactated Ringer's at 125 ml/hr Patient to be nothing by mouth until after external cephalic version Activity as tolerated May have epidural as desired with successful external cephalic version Plans to breast-feed after delivery Anticipate vaginal delivery if external cephalic version is successful and unless otherwise indicated If external cephalic version is unsuccessful then plan will be to proceed with section Zach Celestin M.D. 11:40 AM 07/24/2018
[2018-07-24] MEDS ORDERED: Lactated Ringers 1,000 ML IV SCH ×2 (11:30→22:17)
--- NOTE | 2018-07-24 13:14 | PCM.OPNOTE ---
- General Post-Op/Procedure Note Date of Surgery/Procedure: 07/24/18 Operative Procedure(s): Attempted external cephalic version Findings: Infant in transverse versus complete breech position verified by bedside ultrasound with head in upper maternal right of the uterus. Grossly normal appearing fluid. back was up going along the left side of the maternal uterus. Monitoring with ultrasound of the heart rate during the procedure was reassuring throughout the entirety of the procedure. Pre Op Diagnosis: Intrauterine growth restriction with transverse lie Post-Op Diagnosis: Same, unsuccessful external cephalic version Primary Surgeon: Zach Celestin Pathology: None Fluid Replacement, Intraop: 0 (None) Output, Urine Amount: 0 (Voided prior to procedure) EBL in mLs: 0 Complications: Unsuccessful external cephalic version Condition: Good Free Text/Narrative:: Patient had previously been seen in the clinic and was sent down to labor and delivery for external cephalic version in the setting of intrauterine growth restriction after 38 weeks gestational age. The was in transverse lie with the head on the maternal right on biophysical profile that was done prior to her appointment this morning. I discussed the risks, benefits and alternatives of a external cephalic version versus section and she desired to proceed with external cephalic version. Consents were signed. In L&D room #1 she was placed in dorsal supine position and a bedside ultrasound was used to confirm position with head in the upper maternal right of the uterus with back along the left side of the uterus in complete breech presentation. Normal fluid was noted. She was not having any contractions prior to the procedure on the NST. The pelvis was then lifted out of the lower uterine segment and pressure was applied behind the head to try to have the fetus move in a forward somersault, counterclockwise, fashion. Pressure was applied for 45-60 seconds. After this attempt ultrasound was performed and there is no noted movement. The heart was evaluated with the ultrasound and was overall normal. A second attempt in this manner was attempted with a counterclockwise forward roll. The pelvis is lifted out of the lower uterine segment and pressure was again applied behind the head to try to have the infant rotate. The was again evaluated and the head was noted to be in the same position as it was previously. The heart was evaluated and was overall normal. Another attempt was made by lifting the pelvis out of the lower uterine segment with pressure applied in front of the head in attempting to rotate the infant in a backwards somersault, clockwise roll manner to try to have the infant change positions. Pressure was applied for approximately 60-75 seconds. After the pressure was applied evaluation was performed and the head was noted to be only slightly closer to midline compared to prior to the pressure application. The heart rate was evaluated and was normal. Additional attempt was made for a clockwise, backward somersault roll and pressure was applied in front of the head after lifting the pelvis out of the lower uterine segment for approximately 60-75 seconds. After this attempt the fetus was evaluated and the head had gone back to the original position in the right upper quadrant of the uterus. The heart was evaluated and was felt to be overall normal. Final attempt was made to try to have the turned in a forward roll manner in a counterclockwise fashion by lifting the pelvis out of the lower uterine segment and applying pressure behind the head. Pressure was applied for approximately 45-60 seconds before the mother requested to stop the procedure. The position was evaluated again using ultrasound with no change noted. The head was persistently in the right upper quadrant of the maternal uterus without any change noted. Discussion was had with the patient regarding further attempts at external cephalic version and she declined additional times. She desired to proceed with section. The external cephalic version was completed at this time. Mother and tolerated the procedure well without any complications. There was no blood loss during the procedure.
--- NOTE | 2018-07-24 15:07 | PCM.PREANE ---
Preanesthetic Assessment - Procedure Proposed Procedure: C Section - Anesthesia/Transfusion/Family Hx Anesthesia History: Prior Anesthesia Reaction Family History of Anesthesia Reaction: No Transfusion History: Prior Transfusion Without Reaction (for ectopic about 2 years ago) - Review of Systems General: No Symptoms Pulmonary: No Symptoms Cardiovascular: No Symptoms Gastrointestinal: No Symptoms Neurological: No Symptoms Other: Reports: None - Physical Assessment NPO Status Date: 07/24/18 NPO Status Time: 08:30 Respiratory Rate: 18 Vital Signs: Last Vital Signs Temp 36.2 C 07/24/18 11:24 Pulse 75 07/24/18 11:24 Resp 18 07/24/18 11:24 BP 112/62 07/24/18 11:24 Pulse Ox Height: 1.8 m Weight: 98.157 kg ASA Class: 2 Mental Status: Alert & Oriented x3 Airway Class: Mallampati = 1 Dentition: Reports: Normal Dentition Thyro-Mental Finger Breadths: 3 Mouth Opening Finger Breadths: 3 ROM/Head Extension: Full Lungs: Clear to Auscultation, Normal Respiratory Effort Cardiovascular: Regular Rate, Regular Rhythm - Lab Values: Laboratory Last Values WBC 9.32 K/mm3 (3.98-10.04) 07/24/18 11:37 RBC 3.66 M/mm3 (3.98-5.22) L 07/24/18 11:37 Hgb 11.4 gm/L (11.2-15.7) 07/24/18 11:37 Hct 34.2 % (34.1-44.9) 07/24/18 11:37 MCV 93.4 fl (79.4-94.8) 07/24/18 11:37 MCH 31.1 pg (25.6-32.2) 07/24/18 11:37 MCHC 33.3 g/dl (32.2-35.5) 07/24/18 11:37 RDW Std Deviation 45.5 fL (36.4-46.3) 07/24/18 11:37 Plt Count 212 K/mm3 (182-369) 07/24/18 11:37 MPV 10.9 fl (9.4-12.3) 07/24/18 11:37 Neut % (Auto) 77.4 % (34.0-71.1) H 07/24/18 11:37 Lymph % (Auto) 14.9 % (19.3-51.7) L 07/24/18 11:37 Cole % (Auto) 6.4 % (4.7-12.5) 07/24/18 11:37 Eos % (Auto) 0.6 (0.7-5.8) L 07/24/18 11:37 Baso % (Auto) 0.3 % (0.1-1.2) 07/24/18 11:37 Neut # (Auto) 7.20 K/mm3 (1.56-6.13) H 07/24/18 11:37 Lymph # (Auto) 1.39 K/mm3 (1.18-3.74) 07/24/18 11:37 Cole # (Auto) 0.60 K/mm3 (0.24-0.36) H 07/24/18 11:37 Eos # (Auto) 0.06 K/mm3 (0.04-0.36) 07/24/18 11:37 Baso # (Auto) 0.03 K/mm3 (0.01-0.08) 07/24/18 11:37 RPR Non-reactive (NONREACTIVE) 07/24/18 11:37 Blood Type A POSITIVE 07/24/18 11:37 Gel Antibody Screen Negative 07/24/18 11:37 - Allergies Allergies/Adverse Reactions: Allergies Allergy/AdvReac Type Severity Reaction Status Date / Time hydromorphone HCl Allergy Fainting Verified 07/01/18 20:19 [From Dilaudid] venom-honey bee Allergy Anaphylactic Verified 09/07/17 11:48 [bee venom (honey bee)] Shock preservatives in chicken Allergy Rash Uncoded 09/07/17 11:48 - Blood Blood Available: No Product(s) Available: None - Anesthesia Plan Pre-Op Medication Ordered: None - Acknowledgements Anesthesia Type Planned: Spinal (with duramorph ) Pt an Appropriate Candidate for the Planned Anesthesia: Yes Alternatives and Risks of Anesthesia Discussed w Pt/Guardian: Yes Pt/Guardian Understands and Agrees with Anesthesia Plan: Yes PreAnesthesia Questionnaire HEENT History: Reports: Impaired Vision, Other (See Below) Other HEENT History: wears contacts Cardiovascular History: Reports: Other (See Below) Other Cardiovascular History: DVT to left leg in Apr 2013 and September 2015 Gastrointestinal History: Reports: None Genitourinary History: Reports: None 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 grav 8 para 4 and 3 miscarriage, currenct ectopic September 2016 tubalectomy september 2016 Musculoskeletal History: Reports: Osteoarthritis Psychiatric History: Reports: Anxiety, Depression, Suicide Attempt, Suicidal Ideation Other Psychiatric History: has an appt to see [facility] from [facility] on September 30 Hematologic History: Reports: Anemia, Iron Deficiency Other Hematologic History: pt is A positive - Past Surgical History HEENT Surgical History: Reports: Adenoidectomy, Tonsillectomy GI Surgical History: Reports: Appendectomy Female Surgical History: Reports: D&C Other Female Surgeries/Procedures: salpingectomy Musculoskeletal Surgical History: Reports: None - SUBSTANCE USE Smoking Status *Q: Current Every Day Smoker Tobacco Use Within Last Twelve Months: Cigarettes Second Hand Smoke Exposure: No Recreational Drug Use History: No Recreational Drug Type: Reports: Methamphetamine - HOME MEDS Home Medications: Home Meds Enoxaparin [Lovenox] 40 mg SQ BID 07/24/18 [History] Vits #93/Iron Fum/FA [ Formula Tablet] 1 each PO 07/24/18 [ History] - CURRENT (IN HOUSE) MEDS Current Meds: Current Medications Lactated Ringer's (Ringers, Lactated) 1,000 mls @ 100 mls/hr IV ASDIRECTED JILLIAN Nalbuphine HCl (Nubain) 10 mg IVPUSH Q2H PRN PRN Reason: pain Sodium Chloride (Saline Flush) 10 ml FLUSH ASDIRECTED PRN PRN Reason: Keep Vein Open
[2018-07-24] MEDS ORDERED: Metoclopramide 10 MG/2 ML SDV IVPUSH ONE (15:37)
[2018-07-24] MEDS ORDERED: ceFAZolin 2 GM in Premix Bag 1 BAG IV ONE (15:37)
[2018-07-24] MEDS ORDERED: Ondansetron 4 MG/2 ML SDV IVPUSH PRN ×2 (15:37→18:23)
[2018-07-24] MEDS ORDERED: Citric Acid/Sodium Citrate Solution 30 ML Cup PO ONE (15:37)
[2018-07-24] MEDS ORDERED: Oxytocin/Lactated Ringers 10 UNIT/1,000 ML BAG IV SCH ×2 (15:45→22:17)
[2018-07-24] MEDS ORDERED: Morphine PF 10 MG/10 ML SDV ONE (16:17)
[2018-07-24] MEDS ORDERED: Oxytocin 10 Units/1 ML SDV ONE (16:17)
[2018-07-24] MEDS ORDERED: Ondansetron 4 MG/2 ML SDV ONE (16:17)
[2018-07-24] MEDS ORDERED: ceFAZolin 1 GM Vial ONE (16:20)
[2018-07-24] MEDS ORDERED: Bupivacaine 0.75%/D5W 2 ML Amp ONE (16:22)
[2018-07-24] MEDS ORDERED: Bupivacaine 0.5% 30 ML SDV ONE (16:29)
[2018-07-24] MEDS ORDERED: Meperidine 50 MG/ML Vial IVPUSH ONE (18:23)
[2018-07-24] MEDS ORDERED: diphenhydrAMINE 50 MG/ML SDV IVPUSH PRN ×2 (18:23→22:17)
[2018-07-24] MEDS ORDERED: fentaNYL 100 MCG/2 ML SDV IVPUSH PRN (18:23)
[2018-07-24] MEDS ORDERED: Ketorolac 30 MG/ML SDV ONE (18:45)
--- NOTE | 2018-07-24 18:57 | PCM.POSTAN ---
POST ANESTHESIA ASSESSMENT - MENTAL STATUS Mental Status: Alert, Oriented - VITAL SIGNS Pulse Rate: 61 SaO2: 96 Resp Rate: 13 Blood Pressure: 89/46 Temperature: 37.0 C - RESPIRATORY Respiratory Status: Respiratory Rate WNL, Airway Patent, O2 Saturation Stable, Supplemental Oxygen - CARDIOVASCULAR CV Status: Pulse Rate WNL, Blood Pressure Stable - GASTROINTESTINAL GI Status: No Symptoms - PAIN Pain Score: 0 - POST OP HYDRATION Hydration Status: Adequate & Stable
--- NOTE | 2018-07-24 19:35 | PCM.OPNOTE ---
- General Post-Op/Procedure Note Date of Surgery/Procedure: 07/24/18 Operative Procedure(s): Primary section for breech presentation and intrauterine growth restriction Findings: Live female infant delivered in breech presentation at 1805. Apgars of 8 and 9. weight 2540 g (5 lbs. 10 oz.). Grossly normal-appearing uterus, bilateral fallopian tubes and ovaries. Pre Op Diagnosis: Intrauterine growth restriction with breech presentation following unsuccessful external cephalic version Post-Op Diagnosis: Same Anesthesia Technique: Spinal Primary Surgeon: Zach Celestin Anesthesia Provider: Randy Fleiz Faculty Instructor: [place] Reason Faculty Instructor Was Necessary: Patient safety and reduction of morbidity and mortality Role of Faculty Instructor: Retraction for visualization during surgery Pathology: None Fluid Replacement, Intraop: 1,600 Output, Urine Amount: 50 EBL in mLs: 1,100 Complications: None Condition: Good Free Text/Narrative:: Intake & Output 07/24/18 07/24/18 07/24/18 06:59 14:59 22:59 Intake Total 1000 Output Total 50 Balance 950 Procedure in Detail: The patient was seen on labor and delivery following unsuccessful external cephalic version and the risks, benefits and complications were discussed with the patient. The patient desired to proceed with section and appropriate consents were signed. The patient was taken to operating room #1. A Time Out was held and the patient was identified using 2 identifiers and the procedure was confirmed. The patient was given spinal anesthesia and was placed in dorsal supine position with leftward tilt. She was given 2 g Ancef for antibiotic prophylaxis. The patient was prepped and draped in the usual sterile manner. The abdominal skin was tested and the spinal anesthesia was found to be adequate. The skin was injected with 0.5% marcaine for local anesthesia. A Pfannenstiel skin incision was made and carried down through the subcutaneous tissue to the fascia with the scapel. The fascia was nicked in the midline using a scalpel and the fascial incision was extended transversely with Farrell scissors. The superior aspect of the fascia was grasped with Leieser clamps and tented upwards. The fascia was from the underlying rectus muscle bluntly and sharply with Farrell scissors. Attention was then turned to the inferior aspect of the fascia and was grasped using Elieser clamps and tented upwards. The underlying rectus muscle was dissected off bluntly and sharply with Farrell scissors. The peritoneum was identified and entered bluntly. The utero-vesical peritoneal reflection was identified and the peritoneum was incised with [place] scissors and transversely extended. The bladder blade was inserted and the lower uterine segment was identified. A low transverse uterine incision was made sharply with a scalpel and extended laterally bluntly. The 's feet were grasped and brought to the uterine incision, the bladder blade was removed and the was delivered atraumatically in breech presentation to the level of the shoulders. The left arm was then swept in front of the chest by hooking the arm at the elbow. The infant was then rotated to visualize the right shoulder and the right arm was swept in front of the chest by hooking the arm at the right elbow. The was then elevated and the head was able to be delivered atraumatically. On 2018 a live female was delivered in breech position at 1805, wt of 2540 grams, 5 pounds and 10 ounces. APGARS were 8 & 9. The nose and mouth were suctioned with bulb suction, the cord was doubly clamped and cut and was transferred to the awaiting foil cutter. The placenta was removed intact and appeared normal with a three vessel cord. The uterus was exteriorized and the uterine cavity was cleaned using lap sponges. There is noted to be a remnant of the membrane that was removed using lap sponges and ring forceps. The hysterotomy was closed with a running locked suture of 0-Vicryl. A second suture of 0-Vicryl was used to imbricate the hysterotomy in a vertical locking fashion. The hysterotomy was hemostatic. The uterus, tubes and ovaries appeared overall normal. The uterus was then returned into the abdominal cavity. The hysterotomy was noted to remain hemostatic inside the abdominal cavity. There was a small area on the rectus muscles that was bleeding and this was grasped using a hemostat and cauterized using Bovie cautery. The fascia was noted to be hemostatic and the fascia was then reapproximated with running sutures of 0-Vicryl. The subcutaneous fat was reapproximated using 0 Vicryl. The skin was reapproximated using 4-0 Monocryl and Steri-strips were applied over the incision. Instrument, sponge, and needle counts were correct prior to the abdominal closure and at the conclusion of the case. Plan will be to monitor patient's blood count following delivery and restart on Lovenox subcutaneous injection at 1.5 mg/kg between 6 and 12 hours after delivery.
[2018-07-24] MEDS ORDERED: Naloxone 0.4 MG/ML SDV IVPUSH PRN (22:17)
[2018-07-24] MEDS ORDERED: Ondansetron 4 MG/2 ML SDV IV PRN (22:17)
[2018-07-24] MEDS ORDERED: ePHEDrine 50 MG/ML SDV IVPUSH PRN (22:17)
[2018-07-24] MEDS ORDERED: Lanolin 100% Cream 7 GM Tube TOP PRN (22:17)
[2018-07-24] MEDS ORDERED: Acetaminophen/oxyCODONE 325-5 MG Tab PO PRN (22:17)
[2018-07-25] MEDS: Ketorolac 30 MG/ML SDV IVPUSH SCH ×3 (01:11→13:09)
[2018-07-25] MEDS ORDERED: Lactated Ringers 500 ML IV ONE (01:31)
--- NOTE | 2018-07-25 07:47 | PCM.SN ---
- Free Text/Narrative Note: Post Operative Progress Note POD # 1 Subjective: Doing well overall. Ambulating without difficulty. Lochia minimal. Sena draining clear urine. Passing flatus. Tolerating regular diet without nausea or vomiting. Pain controlled with IV medications. Patient not on oral medications due to Duramorph and IV Toradol. Bottle feeding with minimal difficulty. She denies any vision changes, shortness of breath, lightheadedness or chest pains. Objective: Vitals: Vital Signs - 24 hr 07/24/18 07/24/18 07/24/18 11:24 15:07 18:51 Temperature Temperature [ 36.2 C 37.0 C Temporal] Pulse, Peripheral Pulse, 75 61 Peripheral [ Left Brachial] Respiratory 18 18 13 Rate Blood Pressure Blood Pressure 112/62 89/46 L [Left Arm] O2 Sat by Pulse 96 Oximetry O2 Sat by Pulse Oximetry [Room Air] 07/24/18 07/24/18 07/24/18 18:57 19:00 19:15 Temperature 37.0 C Temperature [ 37.0 C 36.9 C Temporal] Pulse, 61 Peripheral Pulse, 56 L 60 Peripheral [ Left Brachial] Respiratory 13 12 13 Rate Blood Pressure 89/46 L Blood Pressure 84/46 L 83/49 L [Left Arm] O2 Sat by Pulse 96 98 99 Oximetry O2 Sat by Pulse Oximetry [Room Air] 07/24/18 07/24/18 07/24/18 19:30 19:45 20:00 Temperature 36.4 C Temperature [ 37.0 C 37.0 C Temporal] Pulse, 62 Peripheral Pulse, 63 61 Peripheral [ Left Brachial] Respiratory 16 15 14 Rate Blood Pressure 107/54 L Blood Pressure 92/53 L 92/52 L [Left Arm] O2 Sat by Pulse 100 100 100 Oximetry O2 Sat by Pulse Oximetry [Room Air] 07/24/18 07/24/18 07/24/18 21:00 22:00 22:23 Temperature Temperature [ 36.6 C 36.6 C Temporal] Pulse, Peripheral Pulse, 66 71 Peripheral [ Left Brachial] Respiratory 14 12 Rate Blood Pressure Blood Pressure 95/49 L 91/43 L [Left Arm] O2 Sat by Pulse 99 99 Oximetry O2 Sat by Pulse 100 Oximetry [Room Air] 07/24/18 07/25/18 07/25/18 23:00 00:00 01:00 Temperature Temperature [ 36.6 C 36.4 C 36.6 C Temporal] Pulse, Peripheral Pulse, 70 69 70 Peripheral [ Left Brachial] Respiratory 12 12 12 Rate Blood Pressure Blood Pressure 90/42 L 83/43 L 84/45 L [Left Arm] O2 Sat by Pulse 100 100 97 Oximetry O2 Sat by Pulse Oximetry [Room Air] 07/25/18 07/25/18 07/25/18 02:00 03:00 04:00 Temperature Temperature [ 36.4 C Temporal] Pulse, Peripheral Pulse, 63 Peripheral [ Left Brachial] Respiratory 14 12 12 Rate Blood Pressure Blood Pressure 89/41 L [Left Arm] O2 Sat by Pulse 98 100 98 Oximetry O2 Sat by Pulse Oximetry [Room Air] 07/25/18 07/25/18 07/25/18 05:00 06:00 07:38 Temperature Temperature [ Temporal] Pulse, Peripheral Pulse, Peripheral [ Left Brachial] Respiratory 12 14 12 Rate Blood Pressure Blood Pressure 92/48 L [Left Arm] O2 Sat by Pulse 97 100 98 Oximetry O2 Sat by Pulse Oximetry [Room Air] Physical Exam General: Alert and oriented, no acute distress Lungs: Clear to auscultation bilaterally Heart: Regular rate and rhythm Abdomen: Soft, minimal appropriate tenderness, non-distended, fundus midline, nontender and at the umbilicus Incision: Clean, dry and intact, no erythema, bleeding or drainage with Steri- Strips in place Extremities: Trace edema in bilateral lower extremities to mid shins Labs: Laboratory Tests 07/24/18 07/24/18 07/24/18 Range/Units 11:37 11:37 11:37 WBC 9.32 (3.98-10.04) K/mm3 RBC 3.66 L (3.98-5.22) M/mm3 Hgb 11.4 (11.2-15.7) gm/L Hct 34.2 (34.1-44.9) % MCV 93.4 (79.4-94.8) fl MCH 31.1 (25.6-32.2) pg MCHC 33.3 (32.2-35.5) g/dl RDW Std Deviation 45.5 (36.4-46.3) fL Plt Count 212 (182-369) K/mm3 MPV 10.9 (9.4-12.3) fl Neut % (Auto) 77.4 H (34.0-71.1) % Lymph % (Auto) 14.9 L (19.3-51.7) % [place] % (Auto) 6.4 (4.7-12.5) % Eos % (Auto) 0.6 L (0.7-5.8) Baso % (Auto) 0.3 (0.1-1.2) % Neut # (Auto) 7.20 H (1.56-6.13) K/mm3 Lymph # (Auto) 1.39 (1.18-3.74) K/mm3 [place] # (Auto) 0.60 H (0.24-0.36) K/mm3 Eos # (Auto) 0.06 (0.04-0.36) K/mm3 Baso # (Auto) 0.03 (0.01-0.08) K/mm3 RPR Non-reactive (NONREACTIVE) Blood Type A POSITIVE Gel Antibody Screen Negative 07/25/18 Range/Units 00:35 WBC 10.00 (3.98-10.04) K/mm3 RBC 2.90 L (3.98-5.22) M/mm3 Hgb 8.9 L (11.2-15.7) gm/L Hct 27.5 L (34.1-44.9) % MCV 94.8 (79.4-94.8) fl MCH 30.7 (25.6-32.2) pg MCHC 32.4 (32.2-35.5) g/dl RDW Std Deviation 45.7 (36.4-46.3) fL Plt Count 183 (182-369) K/mm3 MPV 10.9 (9.4-12.3) fl Neut % (Auto) 74.8 H (34.0-71.1) % Lymph % (Auto) 16.7 L (19.3-51.7) % [place] % (Auto) 7.1 (4.7-12.5) % Eos % (Auto) 0.9 (0.7-5.8) Baso % (Auto) 0.2 (0.1-1.2) % Neut # (Auto) 7.48 H (1.56-6.13) K/mm3 Lymph # (Auto) 1.67 (1.18-3.74) K/mm3 [place] # (Auto) 0.71 H (0.24-0.36) K/mm3 Eos # (Auto) 0.09 (0.04-0.36) K/mm3 Baso # (Auto) 0.02 (0.01-0.08) K/mm3 RPR (NONREACTIVE) Blood Type Gel Antibody Screen ASSESSMENT: 42-year-old female s/p primary section POD #1 for intrauterine growth restriction and breech presentation, complicated by history of thromboembolism 2, IUGR, AMA without genetic screening and tobacco use in PLAN: Doing well Bottlefeeding with minimal difficulty. Assist as needed Incision healing well. Continue to keep clean and dry. Lochia minimal. Continue to monitor for appropriate lochia. Continue routine post-operative care Discontinue Sena catheter this morning. Plan to follow up on her CBC from this morning and determine timing for initiation of Lovenox due to her history of thromboembolism 2. Plan will be to start her on Lovenox 1.5 mg/kg once daily subcutaneous. Please obtain patient weight in order to best dose for her Lovenox. Anticipate discharge home postop day #2 or 3 Zach Celestin MD 7:46 AM 07/25/2018
[2018-07-25] MEDS: Prenatal Multivitamin with Calcium/Folic Acid/Iron Tab PO SCH (10:03)
[2018-07-25] MEDS: Enoxaparin 150 MG/1 ML Syringe SUBCUT SCH (10:03)
[2018-07-25] MEDS: Ibuprofen 600 MG Tab PO PRN (19:12)
[2018-07-25] MEDS ORDERED: Simethicone 80 MG Tab.Chew PO PRN (20:10)
[2018-07-25] MEDS: Acetaminophen/oxyCODONE 325-5 MG Tab PO PRN (22:25)
[2018-07-26] MEDS: Acetaminophen/oxyCODONE 325-5 MG Tab PO PRN ×4 (04:31→23:26)
--- NOTE | 2018-07-26 08:36 | PCM.SN ---
- Free Text/Narrative Note: Post Operative Progress Note POD # 2 Subjective: Doing well overall. Ambulating without difficulty. Reports that she has been walking several times around the unit throughout the night and morning. Lochia minimal. Voiding without difficulty. Passing flatus and reports that she had a bowel movement this morning. Tolerating regular diet without nausea or vomiting. Pain controlled with oral medications. Bottle feeding with minimal difficulty. She denies any shortness of breath, lightheadedness or chest pains. Objective: Vitals: Vital Signs - 24 hr 07/25/18 07/25/18 07/25/18 09:00 10:00 11:00 Temperature Temperature [ 36.8 C Temporal] Pulse, Peripheral Pulse, 80 Peripheral [ Left Brachial] Respiratory 16 16 16 Rate Blood Pressure Blood Pressure 96/41 L [Left Arm] O2 Sat by Pulse 99 Oximetry 07/25/18 07/25/18 07/25/18 12:00 13:00 14:00 Temperature Temperature [ Temporal] Pulse, Peripheral Pulse, Peripheral [ Left Brachial] Respiratory 16 16 16 Rate Blood Pressure Blood Pressure [Left Arm] O2 Sat by Pulse Oximetry 07/25/18 07/25/18 07/25/18 15:18 17:00 17:15 Temperature Temperature [ 36.9 C 36.8 C Temporal] Pulse, Peripheral Pulse, 74 84 Peripheral [ Left Brachial] Respiratory 16 16 14 Rate Blood Pressure Blood Pressure 102/50 L 103/55 L [Left Arm] O2 Sat by Pulse 96 97 Oximetry 07/25/18 07/25/18 07/25/18 18:00 19:00 20:00 Temperature 36.7 C Temperature [ Temporal] Pulse, 79 Peripheral Pulse, Peripheral [ Left Brachial] Respiratory 16 16 Rate Blood Pressure 100/48 L Blood Pressure [Left Arm] O2 Sat by Pulse 95 Oximetry 07/26/18 03:53 Temperature 36.4 C Temperature [ Temporal] Pulse, 72 Peripheral Pulse, Peripheral [ Left Brachial] Respiratory 16 Rate Blood Pressure 100/52 L Blood Pressure [Left Arm] O2 Sat by Pulse 97 Oximetry Physical Exam General: Alert and oriented, no acute distress Lungs: Clear to auscultation bilaterally Heart: Regular rate and rhythm Abdomen: Soft, minimal appropriate tenderness, non-distended, fundus midline, nontender and at the umbilicus Incision: Clean, dry and intact, no erythema, bleeding or drainage with Steri- Strips in place Extremities: Trace edema in bilateral lower extremities to mid shins, SCDs in place Labs: Laboratory Results - last 24 hr 07/25/18 07/26/18 Range/Units 15:30 06:08 WBC 8.66 7.37 (3.98-10.04) K/mm3 RBC 2.58 L 2.38 L (3.98-5.22) M/mm3 Hgb 7.9 L 7.2 L* (11.2-15.7) gm/L Hct 24.6 L 23.1 L (34.1-44.9) % MCV 95.3 H 97.1 H (79.4-94.8) fl MCH 30.6 30.3 (25.6-32.2) pg MCHC 32.1 L 31.2 L (32.2-35.5) g/dl RDW Std Deviation 46.6 H 47.2 H (36.4-46.3) fL Plt Count 176 L 151 L (182-369) K/mm3 MPV 11.3 11.3 (9.4-12.3) fl Neut % (Auto) 77.1 H 68.4 (34.0-71.1) % Lymph % (Auto) 14.4 L 21.0 (19.3-51.7) % [place] % (Auto) 7.5 8.0 (4.7-12.5) % Eos % (Auto) 0.7 1.8 (0.7-5.8) Baso % (Auto) 0.1 0.4 (0.1-1.2) % Neut # (Auto) 6.67 H 5.04 (1.56-6.13) K/mm3 Lymph # (Auto) 1.25 1.55 (1.18-3.74) K/mm3 [place] # (Auto) 0.65 H 0.59 H (0.24-0.36) K/mm3 Eos # (Auto) 0.06 0.13 (0.04-0.36) K/mm3 Baso # (Auto) 0.01 0.03 (0.01-0.08) K/mm3 Manual Slide Review Abnormal smear Normal smear ASSESSMENT: 42-year-old female s/p primary section POD #2 for intrauterine growth restriction and breech presentation, complicated by history of thromboembolism 2, IUGR, AMA without genetic screening and tobacco use in PLAN: Doing well Bottlefeeding with minimal difficulty. Assist as needed Incision healing well. Continue to keep clean and dry. Lochia minimal. Continue to monitor for appropriate lochia. Continue routine post-operative care CBC this morning had a hemoglobin of 7.2, which is a drop from last evening at 7.9. Patient is not symptomatic from this acute blood loss anemia. Continue to monitor closely. No tachycardia or significant change in her blood pressure. She continues to have low normal blood pressures. Continue Lovenox 1.5 mg/kg (150 mg) daily for her history of thromboembolism 2. We'll have case management work on contacting pharmacy to ensure that the patient will have Lovenox available from her pharmacy on discharge. Repeat CBC at 1400 and monitor for signs and symptoms of acute blood loss anemia. Start on ferrous sulfate supplementation 3 times a day with meals Anticipate discharge home postop day #3 if blood count becomes stable Zach Celestin MD 8:33 AM 07/26/2018
[2018-07-26] MEDS: Ferrous Sulfate 325 MG Tab PO SCH ×3 (09:14→17:17)
[2018-07-26] MEDS: Prenatal Multivitamin with Calcium/Folic Acid/Iron Tab PO SCH (09:14)
[2018-07-26] MEDS: Enoxaparin 150 MG/1 ML Syringe SUBCUT SCH (09:21)
[2018-07-26] MEDS: Ibuprofen 600 MG Tab PO PRN (15:07)
[2018-07-27] MEDS: Ferrous Sulfate 325 MG Tab PO SCH ×2 (06:28→10:55)
[2018-07-27] MEDS: Ibuprofen 600 MG Tab PO PRN (06:28)
--- NOTE | 2018-07-27 08:44 | PCM.SN ---
- Free Text/Narrative Note: Post Operative Progress Note POD # 3 Subjective: Doing well overall. Ambulating without difficulty. Reports that she has been walking several times around the unit throughout the night and morning. Lochia minimal. Voiding without difficulty. Passing flatus and reports that she had a bowel movement yesterday morning. Tolerating regular diet without nausea or vomiting. Pain controlled with oral medications. Reports that her pain is overall controlled with Motrin and occasional Percocet. Bottle feeding with minimal difficulty. She denies any shortness of breath, lightheadedness or chest pains. Objective: Vitals: Vital Signs - 24 hr 07/26/18 07/26/18 07/26/18 09:10 15:14 20:17 Temperature 37.0 C 36.7 C 36.9 C Pulse, 77 85 73 Peripheral Respiratory 18 16 Rate Blood Pressure 101/45 L 110/59 L 95/75 O2 Sat by Pulse 96 99 96 Oximetry 07/26/18 07/27/18 20:19 03:02 Temperature 36.8 C Pulse, 70 68 Peripheral Respiratory 16 Rate Blood Pressure 105/67 108/61 O2 Sat by Pulse 97 100 Oximetry Physical Exam General: Alert and oriented, no acute distress Lungs: Clear to auscultation bilaterally Heart: Regular rate and rhythm Abdomen: Soft, minimal appropriate tenderness, non-distended, fundus midline, nontender and at the umbilicus Incision: Clean, dry and intact, no erythema, bleeding or drainage with Steri- Strips in place Extremities: Trace edema in bilateral lower extremities to mid shins, SCDs in place Labs: Laboratory Results - last 24 hr 07/26/18 07/27/18 Range/Units 14:25 05:45 WBC 7.85 6.94 (3.98-10.04) K/mm3 RBC 2.33 L 2.32 L (3.98-5.22) M/mm3 Hgb 7.2 L* 7.2 L* (11.2-15.7) gm/L Hct 22.7 L 22.7 L (34.1-44.9) % MCV 97.4 H 97.8 H (79.4-94.8) fl MCH 30.9 31.0 (25.6-32.2) pg MCHC 31.7 L 31.7 L (32.2-35.5) g/dl RDW Std Deviation 45.9 46.9 H (36.4-46.3) fL Plt Count 156 L 143 L (182-369) K/mm3 MPV 11.1 11.0 (9.4-12.3) fl Neut % (Auto) 72.6 H 64.5 (34.0-71.1) % Lymph % (Auto) 18.0 L 23.9 (19.3-51.7) % [place] % (Auto) 7.3 8.5 (4.7-12.5) % Eos % (Auto) 1.4 2.4 (0.7-5.8) Baso % (Auto) 0.3 0.3 (0.1-1.2) % Neut # (Auto) 5.71 4.47 (1.56-6.13) K/mm3 Lymph # (Auto) 1.41 1.66 (1.18-3.74) K/mm3 [place] # (Auto) 0.57 H 0.59 H (0.24-0.36) K/mm3 Eos # (Auto) 0.11 0.17 (0.04-0.36) K/mm3 Baso # (Auto) 0.02 0.02 (0.01-0.08) K/mm3 Manual Slide Review Abnormal smear Abnormal smear ASSESSMENT: 42-year-old female s/p primary section POD #3 for intrauterine growth restriction and breech presentation, complicated by history of thromboembolism 2, IUGR, AMA without genetic screening and tobacco use in PLAN: Doing well Bottlefeeding with minimal difficulty. Assist as needed Incision healing well. Continue to keep clean and dry. Lochia minimal. Continue to monitor for appropriate lochia. Continue routine post-operative care CBC this morning had a hemoglobin of 7.2, which is stable throughout the day yesterday. Patient is not symptomatic from this acute blood loss anemia. Continue to monitor closely. No tachycardia or significant change in her blood pressure. She continues to have low normal blood pressures. Continue Lovenox 1.5 mg/kg (150 mg) daily for her history of thromboembolism 2. We will contact pharmacy to ensure that there are doses of the Lovenox available for her to be discharged home on. Continue on ferrous sulfate supplementation 3 times a day with meals Discharge home today with stable blood count Zach Celestin MD 8:42 AM 07/27/2018
--- NOTE | 2018-07-27 08:57 | PCM.DCSUM1 ---
Discharge Summary - Hospital Course Free Text/Narrative:: Procedure in Detail: The patient was seen on labor and delivery following unsuccessful external cephalic version and the risks, benefits and complications were discussed with the patient. The patient desired to proceed with section and appropriate consents were signed. The patient was taken to operating room #1. A Time Out was held and the patient was identified using 2 identifiers and the procedure was confirmed. The patient was given spinal anesthesia and was placed in dorsal supine position with leftward tilt. She was given 2 g Ancef for antibiotic prophylaxis. The patient was prepped and draped in the usual sterile manner. The abdominal skin was tested and the spinal anesthesia was found to be adequate. The skin was injected with 0.5% marcaine for local anesthesia. A Pfannenstiel skin incision was made and carried down through the subcutaneous tissue to the fascia with the scapel. The fascia was nicked in the midline using a scalpel and the fascial incision was extended transversely with Farrell scissors. The superior aspect of the fascia was grasped with Elieser clamps and tented upwards. The fascia was from the underlying rectus muscle bluntly and sharply with Farrell scissors. Attention was then turned to the inferior aspect of the fascia and was grasped using Elieser clamps and tented upwards. The underlying rectus muscle was dissected off bluntly and sharply with Farrell scissors. The peritoneum was identified and entered bluntly. The utero-vesical peritoneal reflection was identified and the peritoneum was incised with Metzenabaum scissors and transversely extended. The bladder blade was inserted and the lower uterine segment was identified. A low transverse uterine incision was made sharply with a scalpel and extended laterally bluntly. The 's feet were grasped and brought to the uterine incision, the bladder blade was removed and the was delivered atraumatically in breech presentation to the level of the shoulders. The left arm was then swept in front of the chest by hooking the arm at the elbow. The was then rotated to visualize the right shoulder and the right arm was swept in front of the chest by hooking the arm at the right elbow. The was then elevated and the head was able to be delivered atraumatically. On 2018 a live female infant was delivered in breech position at 1805, wt of 2540 grams, 5 pounds and 10 ounces. APGARS were 8 & 9. The nose and mouth were suctioned with bulb suction, the cord was doubly clamped and cut and infant was transferred to the awaiting platform worker. The placenta was removed intact and appeared normal with a three vessel cord. The uterus was exteriorized and the uterine cavity was cleaned using lap sponges. There is noted to be a remnant of the membrane that was removed using lap sponges and ring forceps. The hysterotomy was closed with a running locked suture of 0-Vicryl. A second suture of 0-Vicryl was used to imbricate the hysterotomy in a vertical locking fashion. The hysterotomy was hemostatic. The uterus, tubes and ovaries appeared overall normal. The uterus was then returned into the abdominal cavity. The hysterotomy was noted to remain hemostatic inside the abdominal cavity. There was a small area on the rectus muscles that was bleeding and this was grasped using a hemostat and cauterized using Bovie cautery. The fascia was noted to be hemostatic and the fascia was then reapproximated with running sutures of 0-Vicryl. The subcutaneous fat was reapproximated using 0 Vicryl. The skin was reapproximated using 4-0 Monocryl and Steri-strips were applied over the incision. Instrument, sponge, and needle counts were correct prior to the abdominal closure and at the conclusion of the case. Plan will be to monitor patient's blood count following delivery and restart on Lovenox subcutaneous injection at 1.5 mg/kg between 6 and 12 hours after delivery. HPI Initial Comments: Procedure in Detail: The patient was seen on labor and delivery following unsuccessful external cephalic version and the risks, benefits and complications were discussed with the patient. The patient desired to proceed with section and appropriate consents were signed. The patient was taken to operating room #1. A Time Out was held and the patient was identified using 2 identifiers and the procedure was confirmed. The patient was given spinal anesthesia and was placed in dorsal supine position with leftward tilt. She was given 2 g Ancef for antibiotic prophylaxis. The patient was prepped and draped in the usual sterile manner. The abdominal skin was tested and the spinal anesthesia was found to be adequate. The skin was injected with 0.5% marcaine for local anesthesia. A Pfannenstiel skin incision was made and carried down through the subcutaneous tissue to the fascia with the scapel. The fascia was nicked in the midline using a scalpel and the fascial incision was extended transversely with Farrell scissors. The superior aspect of the fascia was grasped with Elieser clamps and tented upwards. The fascia was from the underlying rectus muscle bluntly and sharply with Farrell scissors. Attention was then turned to the inferior aspect of the fascia and was grasped using Elieser clamps and tented upwards. The underlying rectus muscle was dissected off bluntly and sharply with Farrell scissors. The peritoneum was identified and entered bluntly. The utero-vesical peritoneal reflection was identified and the peritoneum was incised with Metzenabaum scissors and transversely extended. The bladder blade was inserted and the lower uterine segment was identified. A low transverse uterine incision was made sharply with a scalpel and extended laterally bluntly. The infant's feet were grasped and brought to the uterine incision, the bladder blade was removed and the was delivered atraumatically in breech presentation to the level of the shoulders. The left arm was then swept in front of the chest by hooking the arm at the elbow. The infant was then rotated to visualize the right shoulder and the right arm was swept in front of the chest by hooking the arm at the right elbow. The infant was then elevated and the head was able to be delivered atraumatically. On 2018 a live female was delivered in breech position at 1805, wt of 2540 grams, 5 pounds and 10 ounces. APGARS were 8 & 9. The nose and mouth were suctioned with bulb suction, the cord was doubly clamped and cut and was transferred to the awaiting platform worker. The placenta was removed intact and appeared normal with a three vessel cord. The uterus was exteriorized and the uterine cavity was cleaned using lap sponges. There is noted to be a remnant of the membrane that was removed using lap sponges and ring forceps. The hysterotomy was closed with a running locked suture of 0-Vicryl. A second suture of 0-Vicryl was used to imbricate the hysterotomy in a vertical locking fashion. The hysterotomy was hemostatic. The uterus, tubes and ovaries appeared overall normal. The uterus was then returned into the abdominal cavity. The hysterotomy was noted to remain hemostatic inside the abdominal cavity. There was a small area on the rectus muscles that was bleeding and this was grasped using a hemostat and cauterized using Bovie cautery. The fascia was noted to be hemostatic and the fascia was then reapproximated with running sutures of 0-Vicryl. The subcutaneous fat was reapproximated using 0 Vicryl. The skin was reapproximated using 4-0 Monocryl and Steri-strips were applied over the incision. Instrument, sponge, and needle counts were correct prior to the abdominal closure and at the conclusion of the case. Plan will be to monitor patient's blood count following delivery and restart on Lovenox subcutaneous injection at 1.5 mg/kg between 6 and 12 hours after delivery. Brief History: Procedure in Detail: The patient was seen on labor and delivery following unsuccessful external cephalic version and the risks, benefits and complications were discussed with the patient. The patient desired to proceed with section and appropriate consents were signed. The patient was taken to operating room #1. A Time Out was held and the patient was identified using 2 identifiers and the procedure was confirmed. The patient was given spinal anesthesia and was placed in dorsal supine position with leftward tilt. She was given 2 g Ancef for antibiotic prophylaxis. The patient was prepped and draped in the usual sterile manner. The abdominal skin was tested and the spinal anesthesia was found to be adequate. The skin was injected with 0.5% marcaine for local anesthesia. A Pfannenstiel skin incision was made and carried down through the subcutaneous tissue to the fascia with the scapel. The fascia was nicked in the midline using a scalpel and the fascial incision was extended transversely with Farrell scissors. The superior aspect of the fascia was grasped with Elieser clamps and tented upwards. The fascia was from the underlying rectus muscle bluntly and sharply with Farrell scissors. Attention was then turned to the inferior aspect of the fascia and was grasped using Elieser clamps and tented upwards. The underlying rectus muscle was dissected off bluntly and sharply with Farrell scissors. The peritoneum was identified and entered bluntly. The utero-vesical peritoneal reflection was identified and the peritoneum was incised with Metzenabaum scissors and transversely extended. The bladder blade was inserted and the lower uterine segment was identified. A low transverse uterine incision was made sharply with a scalpel and extended laterally bluntly. The 's feet were grasped and brought to the uterine incision, the bladder blade was removed and the was delivered atraumatically in breech presentation to the level of the shoulders. The left arm was then swept in front of the chest by hooking the arm at the elbow. The was then rotated to visualize the right shoulder and the right arm was swept in front of the chest by hooking the arm at the right elbow. The was then elevated and the head was able to be delivered atraumatically. On 07/24/2018 a live female was delivered in breech position at 1805, wt of 2540 grams, 5 pounds and 10 ounces. APGARS were 8 & 9. The nose and mouth were suctioned with bulb suction, the cord was doubly clamped and cut and was transferred to the awaiting platform worker. The placenta was removed intact and appeared normal with a three vessel cord. The uterus was exteriorized and the uterine cavity was cleaned using lap sponges. There is noted to be a remnant of the membrane that was removed using lap sponges and ring forceps. The hysterotomy was closed with a running locked suture of 0-Vicryl. A second suture of 0-Vicryl was used to imbricate the hysterotomy in a vertical locking fashion. The hysterotomy was hemostatic. The uterus, tubes and ovaries appeared overall normal. The uterus was then returned into the abdominal cavity. The hysterotomy was noted to remain hemostatic inside the abdominal cavity. There was a small area on the rectus muscles that was bleeding and this was grasped using a hemostat and cauterized using Bovie cautery. The fascia was noted to be hemostatic and the fascia was then reapproximated with running sutures of 0-Vicryl. The subcutaneous fat was reapproximated using 0 Vicryl. The skin was reapproximated using 4-0 Monocryl and Steri-strips were applied over the incision. Instrument, sponge, and needle counts were correct prior to the abdominal closure and at the conclusion of the case. Plan will be to monitor patient's blood count following delivery and restart on Lovenox subcutaneous injection at 1.5 mg/kg between 6 and 12 hours after delivery. Diagnosis: Stroke: No - Discharge Data Discharge Date: 07/27/18 Discharge Disposition: Home, Self-Care 01 Condition: Good - Discharge Diagnosis/Problem(s) (1) 38 weeks gestation of SNOMED Code(s): 32948116 ICD Code: Z3A.38 - 38 WEEKS GESTATION OF Status: Acute (2) IUGR (intrauterine growth restriction) affecting care of mother SNOMED Code(s): 819397434 ICD Code: O36.5990 - MATERN CARE FOR OTH OR SUSP POOR FETL GRTH, UNSP TRI, UNSP Status: Acute (3) History of DVT (deep vein thrombosis) SNOMED Code(s): 433762506 ICD Code: Z86.718 - PERSONAL HISTORY OF OTHER VENOUS THROMBOSIS AND EMBOLISM Status: Acute (4) AMA (advanced maternal age) multigravida 35+ SNOMED Code(s): 403696926 ICD Code: O09.529 - SUPERVISION OF ELDERLY MULTIGRAVIDA, UNSPECIFIED TRIMESTER Status: Acute (5) delivery delivered SNOMED Code(s): 907345648 ICD Code: O82 - ENCOUNTER FOR DELIVERY WITHOUT INDICATION Status: Acute - Patient Summary/Data Operative Procedure(s) Performed: Primary section for breech presentation and intrauterine growth restriction Complications: Acute blood loss anemia with patient asymptomatic and not requiring blood transfusion. Consults: None Hospital Course: Papo Rowland was admitted for planned delivery after patient was found to have intrauterine growth restriction on BPP on the day of her clinic appointment on 07/24/2018. She had an attempted external cephalic version that was unsuccessful. Discussion was had with patient that I would recommend for section in this setting due to the risks of breech vaginal delivery. Patient agreed and she was scheduled for section. She was taken back to the OR and given spinal injection for anesthesia. She was given Ancef 2 g for antibiotic prophylaxis. She was prepped and draped in the normal fashion. On 07/24/2018 she had a normal delivery of a live female infant at 1805. Apgars of 8 and 9. Weight of 2540 g (5 lbs. 10 oz.). She was closed in a normal fashion. There were increased amount of bleeding with blood loss of 1100 mL with the procedure. Please see the operative report for full details. Her post operative course was complicated by continued drop in her hemoglobin following the procedure but not requiring blood transfusion. Patient had a significant history of thromboembolism 2 and it was recommended to be on Lovenox after delivery. Her hemoglobin was at 8.96 hours after delivery and was stable at 7. 8 in the morning of postop day #1 after . She was started on Lovenox 150 mg subcutaneous in the morning of postop day #1. Her hemoglobin was stable in the afternoon of postop day #1 with a value of 7.9. In the morning of postop day #2 her hemoglobin dropped to 7.2. She was continued on the Lovenox due to the risk of venous thromboembolism. She was asymptomatic from this acute blood loss anemia. She was started on iron supplementation. Her hemoglobin was checked in the afternoon of postop day #2 and it was stable at 7.2. In the morning of postop day #3 her hemoglobin was again stable at 7.2. It was felt that her hemoglobin level was stable at this time and that she would likely be safe for discharge home at this point. Her pain was well controlled and she had minimal lochia. She was ambulating, tolerating a regular diet and voiding normally. She was passing flatus and has had a bowel movement. She was bottle feeding without difficulty. She was afebrile. She desired to be discharged home on the morning of POD #3. Her blood type is A+. - Patient Instructions Diet: Regular Diet as Tolerated Activity: Apply Ice, As Tolerated, No Lifting Over 25 Pounds Activity, Other: Nothing in the vagina for 6 weeks. Driving: Do Not Drive (While taking narcotic medications or having significant pain that would restrict mobility or reactions.) Showering/Bathing: May Shower Wound/Incision Care: Keep Operative Site/Wound Site Clean and Dry Notify Provider of: Fever, Increased Pain, Swelling and Redness, Drainage, Nausea and/or Vomiting Other/Special Instructions: Please contact your physician's office if you note any bleeding or pus coming from the abdominal incision. Please contact your physician's office if you have heavy vaginal bleeding enough to soak a pad in less than an hour for several hours. Monitor for any signs of an infection in the breasts with severe pain or redness of the breast. Continue to take the Lovenox daily to reduce risk for postoperative blood clots or pulmonary embolism. Monitor closely for any signs of a blood clot in her leg with symptoms including severe pain, redness, swelling, changes in skin color or warmth of the skin. Signs of a blood clot in her lungs include severe shortness of breath, chest pain or coughing up blood. If any of these occur he should contact our office immediately or be seen in the emergency department if after regular business hours. - Discharge Plan *PRESCRIPTION DRUG MONITORING PROGRAM REVIEWED*: Yes *COPY OF PRESCRIPTION DRUG MONITORING REPORT IN PATIENT JSOE: Yes Prescriptions/Med Rec: Acetaminophen/oxyCODONE [Percocet 325-5 MG] 1 - 2 tab PO Q6H PRN #30 tablet PRN Reason: Pain Enoxaparin [Lovenox] 150 mg SUBCUT DAILY #40 syringe Home Medications: Home Meds Vits #93/Iron Fum/FA [ Formula Tablet] 1 each PO 07/24/18 [ History] Enoxaparin [Lovenox] 150 mg SUBCUT DAILY #40 syringe 07/26/18 [Rx] Acetaminophen/oxyCODONE [Percocet 325-5 MG] 1 - 2 tab PO Q6H PRN #30 tablet [Rx] Ferrous Sulfate 325 mg PO TIDMEALS tablet 07/27/18 [Rx] Ibuprofen [Motrin] 600 mg PO Q6H PRN tablet 07/27/18 [Rx] Simethicone 80 mg PO Q6H PRN tab.chew 07/27/18 [Rx] Patient Handouts: Steps to Quit Smoking, [id number], Delivery, Care After Referrals: Zach Celestin MD [Family Provider] - (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-2 weeks for routine postop appointment or earlier as needed.) - Discharge Summary/Plan Comment DC Time >30 min.: No - Patient Data Vitals - Most Recent: Last Vital Signs Temp 36.8 C 07/27/18 03:02 Pulse 68 07/27/18 03:02 Resp 16 07/27/18 03:02 BP 108/61 07/27/18 03:02 Pulse Ox 100 07/27/18 03:02 Weight - Most Recent: 98.157 kg I&O - Last 24 hours: Intake & Output 07/26/18 07/27/18 07/27/18 22:59 06:59 14:59 Intake Total 420 Balance 420 Lab Results - Last 24 hrs: Laboratory Results - last 24 hr 07/26/18 07/27/18 Range/Units 14:25 05:45 WBC 7.85 6.94 (3.98-10.04) K/mm3 RBC 2.33 L 2.32 L (3.98-5.22) M/mm3 Hgb 7.2 L* 7.2 L* (11.2-15.7) gm/L Hct 22.7 L 22.7 L (34.1-44.9) % MCV 97.4 H 97.8 H (79.4-94.8) fl MCH 30.9 31.0 (25.6-32.2) pg MCHC 31.7 L 31.7 L (32.2-35.5) g/dl RDW Std Deviation 45.9 46.9 H (36.4-46.3) fL Plt Count 156 L 143 L (182-369) K/mm3 MPV 11.1 11.0 (9.4-12.3) fl Neut % (Auto) 72.6 H 64.5 (34.0-71.1) % Lymph % (Auto) 18.0 L 23.9 (19.3-51.7) % Payette % (Auto) 7.3 8.5 (4.7-12.5) % Eos % (Auto) 1.4 2.4 (0.7-5.8) Baso % (Auto) 0.3 0.3 (0.1-1.2) % Neut # (Auto) 5.71 4.47 (1.56-6.13) K/mm3 Lymph # (Auto) 1.41 1.66 (1.18-3.74) K/mm3 Payette # (Auto) 0.57 H 0.59 H (0.24-0.36) K/mm3 Eos # (Auto) 0.11 0.17 (0.04-0.36) K/mm3 Baso # (Auto) 0.02 0.02 (0.01-0.08) K/mm3 Manual Slide Review Abnormal smear Abnormal smear Med Orders - Current: Current Medications Diphenhydramine HCl (Benadryl) 25 mg IVPUSH Q6H PRN PRN Reason: Itching or Nausea Emollient Ointment (Lansinoh Hpa) 0 gm TOP ASDIRECTED PRN PRN Reason: Sore Nipples Enoxaparin Sodium (Lovenox) 150 mg SUBCUT DAILY [facility] Last Admin: 07/26/18 09:21 Dose: 150 mg Ephedrine Sulfate (Ephedrine Sulfate) 5 mg IVPUSH SEECOMMENT PRN PRN Reason: Other Ferrous Sulfate (Ferrous Sulfate) 325 mg PO TIDMEALS [facility] Last Admin: 07/27/18 06:28 Dose: 325 mg Oxytocin/Lactated Ringer's (Pitocin In Lr 10 Units/1,000 Ml) 10 unit in 1,000 mls @ 100 mls/hr IV .CONTINUOUS JILLIAN; Protocol Ibuprofen (Motrin) 600 mg PO Q6H PRN PRN Reason: mild pain or fever Last Admin: 07/27/18 06:28 Dose: 600 mg Naloxone HCl (Narcan) 0.1 mg IVPUSH SEECOMMENT PRN PRN Reason: Respiratory Depression Ondansetron HCl (Zofran) 4 mg IV Q8H PRN PRN Reason: Nausea/Vomiting Oxycodone/Acetaminophen (Percocet 325-5 Mg) 1 tab PO Q6H PRN PRN Reason: Pain (moderate 4-6) Oxycodone/Acetaminophen (Percocet 325-5 Mg) 2 tab PO Q6H PRN PRN Reason: Pain (moderate 4-6) Last Admin: 07/26/18 23:26 Dose: 2 tab Prenat Multivit/Line Welder/Iron/Folic Ac ( Plus Iron) 1 each PO DAILY [facility] Last Admin: 07/26/18 09:14 Dose: 1 each Simethicone (Simethicone) 80 mg PO Q6H PRN PRN Reason: Gas Last Admin: 07/25/18 20:26 Dose: 80 mg Discontinued Medications Bupivacaine HCl (Marcaine 0.5%) Confirm Administered Dose 30 ml .ROUTE .STK-MED ONE Stop: 07/24/18 16:30 Last Admin: 07/24/18 17:57 Dose: 20 ml Bupivacaine HCl/Dextrose (Marcaine 0.75% Spinal) Confirm Administered Dose 2 ml .ROUTE .STK-MED ONE Stop: 07/24/18 16:23 Cefazolin Sodium (Ancef) Confirm Administered Dose 2 gm .ROUTE .STK-MED ONE Stop: 07/24/18 16:21 Citric Acid/Sodium Citrate (Bicitra Solution) 30 ml PO ONETIME ONE Stop: 07/24/18 15:38 Last Admin: 07/24/18 16:17 Dose: 30 ml Diphenhydramine HCl (Benadryl) 25 mg IVPUSH Q6H PRN PRN Reason: Pruritis Fentanyl (Sublimaze) 50 mcg IVPUSH Q5M PRN PRN Reason: Pain Lactated Ringer's (Ringers, Lactated) 1,000 mls @ 100 mls/hr IV ASDIRECTED [facility] Last Admin: 07/24/18 16:15 Dose: 100 mls/hr Cefazolin Sodium/Dextrose 2 gm (/ Premix) 50 mls @ 100 mls/hr IV ONETIME ONE Stop: 07/24/18 16:06 Last Admin: 07/24/18 22:28 Dose: Not Given Oxytocin/Lactated Ringer's (Pitocin In Lr 10 Units/1,000 Ml) 10 unit in 1,000 mls @ 100 mls/hr IV ASDIRECTED [facility] Lidocaine HCl (Xylocaine-Mpf 1%) Confirm Administered Dose 5 mls @ as directed .ROUTE .STK-MED ONE Stop: 07/24/18 16:23 Lactated Ringer's (Ringers, Lactated) 1,000 mls @ 125 mls/hr IV ASDIRECTED [facility] Stop: 07/25/18 06:16 Last Admin: 07/24/18 23:21 Dose: 125 mls/hr Lactated Ringer's (Ringers, Lactated) 500 mls @ 999 mls/hr IV .BOLUS ONE Stop: 07/25/18 02:01 Last Admin: 07/25/18 06:30 Dose: 999 mls/hr Ketorolac Tromethamine (Toradol) Confirm Administered Dose 30 mg .ROUTE .STK- MED ONE Stop: 07/24/18 18:46 Ketorolac Tromethamine (Toradol) 30 mg IVPUSH Q6H [facility] Stop: 07/25/18 13:01 Last Admin: 07/25/18 13:09 Dose: 30 mg Meperidine HCl (Meperidine) 12.5 mg IVPUSH ONETIME ONE Stop: 07/24/18 18:24 Last Admin: 07/24/18 22:29 Dose: Not Given Metoclopramide HCl (Reglan) 10 mg IVPUSH ONETIME ONE Stop: 07/24/18 15:38 Last Admin: 07/24/18 16:17 Dose: 10 mg Morphine Sulfate (Duramorph Pf) Confirm Administered Dose 10 mg .ROUTE .STK-MED ONE Stop: 07/24/18 16:18 Nalbuphine HCl (Nubain) 10 mg IVPUSH Q2H PRN PRN Reason: pain Ondansetron HCl (Zofran) 4 mg IVPUSH Q4H PRN PRN Reason: Nausea/Vomiting Ondansetron HCl (Zofran) Confirm Administered Dose 4 mg .ROUTE .STK-MED ONE Stop: 07/24/18 16:18 Ondansetron HCl (Zofran) 4 mg IVPUSH ONETIME PRN PRN Reason: Nausea/Vomiting Oxytocin (Pitocin) Confirm Administered Dose 20 unit .ROUTE .STK-MED ONE Stop: 07/24/18 16:18 Sodium Chloride (Saline Flush) 10 ml FLUSH ASDIRECTED PRN PRN Reason: Keep Vein Open
[2018-07-27] MEDS: Enoxaparin 150 MG/1 ML Syringe SUBCUT SCH (09:28)
[2018-07-27 09:30] VITALS: BP 113/47
[2018-07-27] MEDS: Prenatal Multivitamin with Calcium/Folic Acid/Iron Tab PO SCH (10:55)
== END 2018-07-27 12:30 | disposition home or self-care (01) | DRG 787 ==
LOC: JD.OB 11:01 → INTOOBSV 17:42 → OBSVTOIN 17:42 → JD.OB 17:43 → OBSVTOIN 18:05 → JD.OB 18:24
PROVIDERS: ADMIT Obstetrics & Gynecology; ATTEND Obstetrics & Gynecology
PROC: 10D00Z1 Extraction of Products of Conception, Low, Open Approach (ICD-10-PCS; principal; 2018-07-24)
DX: O32.1XX0 Maternal care for breech presentation, not applicable or unspecified (principal); D62 Acute posthemorrhagic anemia; Z3A.38 38 weeks gestation of pregnancy; Z37.0 Single live birth; O09.523 Supervision of elderly multigravida, third trimester; O36.5930 Maternal care for other known or suspected poor fetal growth, third trimester, not applicable or unspecified; O99.02 Anemia complicating childbirth; Z86.718 Personal history of other venous thrombosis and embolism; O99.333 Smoking (tobacco) complicating pregnancy, third trimester; F17.210 Nicotine dependence, cigarettes, uncomplicated; Z88.5 Allergy status to narcotic agent; Z91.030 Bee allergy status; Z91.018 Allergy to other foods
CPT/HCPCS: 01961; 36415; 59025; 59412; 85025; 86592; 86850; 86900; 86901; A9270-GY; J0690; J1650; J1885; J2001; J2270; J2405; J2590; J2765; J3490; J7120

== ENCOUNTER 2018-08-02 10:11 | Emergency (ER) | payer MEDICAID ==
[2018-08-02] MEDS ORDERED: fentaNYL 100 MCG/2 ML SDV IVPUSH ONE ×2 (10:34→13:02)
--- NOTE | 2018-08-02 12:24 | EDM.PDOC ---
ED HPI GENERAL MEDICAL PROBLEM - General Chief Complaint: Lower Extremity Injury/Pain Stated Complaint: [facility] Time Seen by Provider: 08/02/18 10:22 Source of Information: Reports: Patient, EMS History Limitations: Reports: No Limitations - History of Present Illness INITIAL COMMENTS - FREE TEXT/NARRATIVE: The patient presents by [facility] for left leg pain and edema. He noticed this swelling this morning. She just delivered a baby by on July 24. She is on lovenox 150mg subcutaneous. She has a history of DVTs. She had one in 2012 after delivering her baby by natural and again in 2015. She was on coumadin. She denies injuring her leg in any way. She has no chest pain or shortness of breath. She has no fever, chills, cough, congestion, runny nose, abdominal pain, nausea or vomiting. She has 6 out of 10 pain to the left lower leg like a jah horse. The baby is being bottle fed. Onset: Gradual Duration: Hour(s): Location: Reports: Lower Extremity, Left (lower leg) Quality: Reports: Other (cramping like a jah horse) Severity: Moderate Improves with: Reports: None Worsens with: Reports: None Associated Symptoms: Reports: No Other Symptoms Left Lower Posterior Leg Pain Score (Numeric/FACES): 6 - Related Data Allergies Allergy/AdvReac Type Severity Reaction Status Date / Time venom-honey bee Allergy Anaphylactic Verified 08/02/18 10:12 [bee venom (honey bee)] Shock hydromorphone HCl AdvReac Fainting Verified 08/02/18 10:12 [From Dilaudid] preservatives in chicken Allergy Rash Uncoded 09/07/17 11:48 Home Meds: Home Meds Vits #93/Iron Fum/FA [ Formula Tablet] 1 each PO DAILY [History] Enoxaparin [Lovenox] 150 mg SUBCUT DAILY #40 syringe 07/26/18 [Rx] Acetaminophen/oxyCODONE [Percocet 325-5 MG] 1 - 2 tab PO Q6H PRN #30 tablet [Rx] Ferrous Sulfate 325 mg PO TIDMEALS tablet 07/27/18 [Rx] Ibuprofen [Motrin] 600 mg PO Q6H PRN tablet 07/27/18 [Rx] Warfarin [Coumadin] 5 mg PO DAILY #30 tab 08/02/18 [Rx] Past Medical History HEENT History: Reports: Impaired Vision, Other (See Below) Other HEENT History: wears contacts Cardiovascular History: Reports: Other (See Below) Other Cardiovascular History: DVT to left leg in Apr 2013 Gastrointestinal History: Reports: None Genitourinary History: Reports: None 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 ROOM NURSE History: Reports: Ectopic , Spontaneous , Other (See Below) Other RECOVERY ROOM NURSE History: grav 8 para 4 and 3 miscarriage, currenct ectopic September 2016 tubalectomy september 2016 Musculoskeletal History: Reports: Osteoarthritis Psychiatric History: Reports: Anxiety, Depression, Suicide Attempt, Suicidal Ideation Other Psychiatric History: has an appt to see [facility] from [facility] on September 30 Hematologic History: Reports: Anemia, Iron Deficiency Other Hematologic History: pt is A positive - Past Surgical History HEENT Surgical History: Reports: Adenoidectomy, Tonsillectomy GI Surgical History: Reports: Appendectomy Female Surgical History: Reports: D&C Other Female Surgeries/Procedures: salpingectomy Musculoskeletal Surgical History: Reports: None Social & Family History - Family History Family Medical History: Noncontributory Cardiac: Reports: [place] Respiratory: Reports: COPD Neurological: Reports: CVA Endocrine/Metabolic: Reports: Diabetes, type II - Tobacco Use Smoking Status *Q: Current Every Day Smoker Years of Tobacco use: 10 Packs/Tins Daily: 0.2 - Caffeine Use Caffeine Use: Reports: None - Recreational Drug Use Recreational Drug Use: No - Living Situation & Occupation Living situation: Reports: , with Spouse, with Family Occupation: Employed Review of Systems - Review of Systems Review Of Systems: See Below Constitutional: Reports: No Symptoms Eyes: Reports: No Symptoms Ears: Reports: No Symptoms Nose: Reports: No Symptoms Mouth/Throat: Reports: No Symptoms Respiratory: Reports: No Symptoms Cardiovascular: Reports: No Symptoms GI/Abdominal: Reports: No Symptoms Genitourinary: Reports: No Symptoms Musculoskeletal: Reports: Other (Left leg pain and edema) Skin: Reports: No Symptoms ED EXAM, GENERAL - Physical Exam Exam: See Below Exam Limited By: No Limitations General Appearance: Alert, No Apparent Distress Ears: Normal External Exam Nose: Normal Inspection Head: Atraumatic, Normocephalic Neck: Normal Inspection Respiratory/Chest: No Respiratory Distress, Lungs Clear, Normal Breath Sounds Cardiovascular: Regular Rate, Rhythm, No Edema, No Murmur GI/Abdominal: Soft, Non-Tender, No Organomegaly, No Mass Back Exam: Normal Inspection Extremities: Other (Pain upon palpation to the left lower leg. Mild to moderate edema. Good sensation and pulses distally.) Course - Vital Signs Last Recorded V/S: Last Vital Signs Temp 98.4 F 08/02/18 10:14 Pulse 74 08/02/18 10:14 Resp 13 08/02/18 10:14 BP 115/62 08/02/18 10:14 Pulse Ox 100 08/02/18 10:14 - Orders/Labs/Meds Orders: Active Orders 24 hr Category Date Time Status Cardiac Monitoring [RC] . DIRECTED Care 08/02/18 10:33 Active Labs: Laboratory Tests 08/02/18 08/02/18 08/02/18 Range/Units 10:45 10:45 10:45 WBC 11.59 H (3.98-10.04) K/mm3 RBC 3.38 L (3.98-5.22) M/mm3 Hgb 10.2 L (11.2-15.7) gm/L Hct 32.2 L (34.1-44.9) % MCV 95.3 H (79.4-94.8) fl MCH 30.2 (25.6-32.2) pg MCHC 31.7 L (32.2-35.5) g/dl RDW Std Deviation 45.6 (36.4-46.3) fL Plt Count 269 (182-369) K/mm3 MPV 9.8 (9.4-12.3) fl Neut % (Auto) 78.3 H (34.0-71.1) % Lymph % (Auto) 12.8 L (19.3-51.7) % Edmunds % (Auto) 6.0 (4.7-12.5) % Eos % (Auto) 1.8 (0.7-5.8) Baso % (Auto) 0.3 (0.1-1.2) % Neut # (Auto) 9.08 H (1.56-6.13) K/mm3 Lymph # (Auto) 1.48 (1.18-3.74) K/mm3 Edmunds # (Auto) 0.69 H (0.24-0.36) K/mm3 Eos # (Auto) 0.21 (0.04-0.36) K/mm3 Baso # (Auto) 0.04 (0.01-0.08) K/mm3 D-Dimer, Quantitative 9.67 H (0.19-0.50) mg/L Sodium 141 (136-145) mEq/L Potassium 4.1 (3.5-5.1) mEq/L Chloride 108 H (98-107) mEq/L Carbon Dioxide 22 (21-32) mEq/L Anion Gap 15.1 H (5-15) BUN 19 H (7-18) mg/dL Creatinine 0.7 (0.55-1.02) mg/dL Est Cr Clr Drug Dosing 115.82 mL/min Estimated GFR (MDRD) > 60 (>60) mL/min BUN/Creatinine Ratio 27.1 H (14-18) Glucose 97 (74-106) mg/dL Calcium 8.2 L (8.5-10.1) mg/dL Total Bilirubin 0.3 (0.2-1.0) mg/dL AST 14 L (15-37) U/L ALT 29 (14-59) U/L Alkaline Phosphatase 99 (46-116) U/L Total Protein 6.4 (6.4-8.2) g/dl Albumin 2.9 L (3.4-5.0) g/dl Globulin 3.5 gm/dL Albumin/Globulin Ratio 0.8 L (1-2) Meds: Medications Discontinued Medications Generic Name Dose Route Start Last Admin Trade Name Freq PRN Reason Stop Dose Admin Fentanyl 100 mcg 08/02/18 10:34 08/02/18 10:48 Sublimaze IVPUSH 08/02/18 10:35 100 mcg ONETIME ONE Administration - Re-Assessments/Exams Free Text/Narrative Re-Assessment/Exam: 08/02/18 12:25 I ordered an IV saline lock, labs, and an US of her left leg. Her WBC was elevated at 11.59. Her Hgb was a little low at 10.2. Her platelets are normal. Her D-dimer was elevated at 9.67. 08/02/18 12:55 The US shows deep venous thrombosis. I called Dr Celestin and he was okay with me starting coumadin and I will cover her for 5 days with the lovenox and she can stop it. Departure - Departure Time of Disposition: 13:00 Disposition: Home, Self-Care 01 Condition: Good Clinical Impression: DVT (deep venous thrombosis) Qualifiers: DVT location: lower extremity Affected thrombotic vein of extremity: unspecified vein of extremity Chronicity: acute Laterality: left Qualified Code( s): I82.402 - Acute embolism and thrombosis of unspecified deep veins of left lower extremity - Discharge Information *PRESCRIPTION DRUG MONITORING PROGRAM REVIEWED*: Not Applicable *COPY OF PRESCRIPTION DRUG MONITORING REPORT IN PATIENT JOSE: Not Applicable Prescriptions: Warfarin [Coumadin] 5 mg PO DAILY #30 tab Referrals: Zach Celestin MD [Primary Care Provider] - Susan Mejia NP [Nurse Practitioner] - 1 Week Forms: ED Department Discharge Additional Instructions: You were given a dose of coumadin here. Take coumadin daily. Take the lovenox daily for 4 more days. Please return if you are worse. Follow up with Odalis Wilson or Susan Mejia on Tuesday or Tuesday. - My Orders Last 24 Hours: My Active Orders 08/02/18 10:33 Cardiac Monitoring [RC] . DIRECTED - Assessment/Plan Last 24 Hours: My Active Orders 08/02/18 10:33 Cardiac Monitoring [RC] . DIRECTED
--- NOTE | 2018-08-02 12:29 | US ---
Left lower extremity deep venous ultrasound: Duplex and color flow imaging was obtained of the left common femoral, proximal greater saphenous, superficial femoral, popliteal, posterior tibial and peroneal veins. Right common femoral vein was also evaluated. Findings: Normal augmentation is seen within the superficial femoral vein through peroneal veins. There is lack of phasic flow, augmentation and compression within the left common femoral vein compatible with thrombus. Incomplete clot is believed to be present within the popliteal and posterior tibial vein as well as at the bifurcation of the peroneal vein. Superficial femoral vein is patent. Common femoral vein on the right side is patent. Impression: 1. Deep venous thrombosis as noted above. Diagnostic code #5
[2018-08-02] MEDS ORDERED: Warfarin 5 MG Tab PO ONE (12:57)
[2018-08-02 14:55] VITALS: BP 95/56
== END 2018-08-02 14:25 | disposition home or self-care (01) ==
LOC: JD.ED 10:11 → SUPCPDRO 10:11 → JD.ED 14:25
DX: I82.402 Acute embolism and thrombosis of unspecified deep veins of left lower extremity (principal); F17.210 Nicotine dependence, cigarettes, uncomplicated; Z79.01 Long term (current) use of anticoagulants; Z79.899 Other long term (current) drug therapy; Z91.018 Allergy to other foods; Z91.030 Bee allergy status; Z88.5 Allergy status to narcotic agent
CPT/HCPCS: 36415; 80053; 85025; 85379; 85610; 93971; 96374; 96376; 99284; A9270; J3010

== ENCOUNTER 2019-01-19 00:38 | Emergency (ER) | payer MEDICAID ==
[2019-01-19 00:47] VITALS: BP 120/65
--- NOTE | 2019-01-19 01:39 | EDM.PDOC ---
ED HPI GENERAL MEDICAL PROBLEM - General Chief Complaint: Skin Complaint Stated Complaint: PAINFUL WELT ON RIGHT ARM Time Seen by Provider: 01/19/19 01:22 Source of Information: Reports: Patient History Limitations: Reports: No Limitations - History of Present Illness INITIAL COMMENTS - FREE TEXT/NARRATIVE: The patient states that she noticed a small welt to her right antecubital fossa around 16:20 this afternoon, after, she believes, she was bitten by an insect. It became itchy and painful. She took 10 mg of Claritin, but the area has grown in size. The patient appears to be very anxious, and states that her right hand is tingling. The patient's PCP is Aric Mejia NP. Right Middle Arm Pain Score (Numeric/FACES): 9 - Related Data Allergies Allergy/AdvReac Type Severity Reaction Status Date / Time venom-honey bee Allergy Anaphylactic Verified 01/19/19 00:47 [bee venom (honey bee)] Shock hydromorphone HCl AdvReac Fainting Verified 01/19/19 00:47 [From Dilaudid] preservatives in chicken Allergy Rash Uncoded 01/19/19 00:47 Past Medical History HEENT History: Reports: Impaired Vision Other HEENT History: wears contacts Cardiovascular History: Reports: Blood Clots/VTE/DVT (DVT left leg Apr 2013) FREIGHT HUSTLER History: Reports: Ectopic (September 2016), Spontaneous : 8 Para: 4 Musculoskeletal History: Reports: Fracture (right hand), Osteoarthritis Psychiatric History: Reports: Anxiety, Depression, Suicide Attempt, Suicidal Ideation Hematologic History: Reports: Anemia, Iron Deficiency - Past Surgical History HEENT Surgical History: Reports: Adenoidectomy (7 years old), Tonsillectomy (7 years old) GI Surgical History: Reports: Appendectomy (1993) Female Surgical History: Reports: Section (x 1, 1982), D&C (x 3), Other (See Below) (Salpingectomy for ectopic September 2016) Musculoskeletal Surgical History: Reports: ORIF (right hand, with subsequent hardware removal) Social & Family History - Family History Family Medical History: Noncontributory Cardiac: Reports: [place] Respiratory: Reports: COPD Neurological: Reports: CVA Endocrine/Metabolic: Reports: Diabetes, type II - Tobacco Use Smoking Status *Q: Current Every Day Smoker Years of Tobacco use: 26 Packs/Tins Daily: 0.4 - Caffeine Use Caffeine Use: Reports: Energy Drinks - Alcohol Use Alcohol Use History: Yes Alcohol Use Frequency: Rarely - Recreational Drug Use Recreational Drug Use: Yes Drug Use in Last 12 Months: No Recreational Drug Type: Reports: Methamphetamine (last smoked 2003) - Living Situation & Occupation Living situation: Reports: , with Spouse, with Family (3 kids) Occupation: Employed ED ROS GENERAL - Review of Systems Review Of Systems: ROS reveals no pertinent complaints other than HPI. ED EXAM, SKIN/RASH Exam: See Below Exam Limited By: No Limitations General Appearance: Alert, WD/WN, Anxious Extremities: Normal Range of Motion, Normal Capillary Refill, Other (There is a 7 cm diameter area of mild erythema without any perceptible swelling, to the patient's right antecubital fossa. Neurovascular status of the right upper extremity is intact.) Psychiatric: Anxious Skin: Warm, Dry, Intact, Normal Color Course - Vital Signs Last Recorded V/S: Last Vital Signs Temp 36.1 C 01/19/19 00:43 Pulse 84 01/19/19 00:43 Resp 16 01/19/19 00:43 BP 120/65 01/19/19 00:43 Pulse Ox 99 01/19/19 00:43 - Re-Assessments/Exams Free Text/Narrative Re-Assessment/Exam: 01/19/19 01:34 The patient is suffering from a local inflammatory reaction to an insect bite. This is not cellulitis, and antibiotics are not indicated. Treatment consists of a nonsedating antihistamine, preferably fexofenadine (Kathleen), and ice packs. Resolution typically occurs within 12 days. Departure - Departure Time of Disposition: 01:34 Disposition: Home, Self-Care 01 Condition: Good Clinical Impression: Local reaction to insect sting - Discharge Information *PRESCRIPTION DRUG MONITORING PROGRAM REVIEWED*: Not Applicable *COPY OF PRESCRIPTION DRUG MONITORING REPORT IN PATIENT JOSE: Not Applicable Instructions: Insect Bite, Adult, [id number] Referrals: Susan Mejia NP [Primary Care Provider] - Forms: ED Department Discharge Additional Instructions: You were seen in the emergency room for a painful red area to the inside of your right elbow that developed over the course of the day. Based on your history and physical examination, you are most likely suffering from a local inflammatory reaction to an insect bite. This is not cellulitis or an infection, and antibiotics are not indicated. Treatment consists of a nonsedating antihistamine, such as fexofenadine (Kathleen ), cetrizine (Zyrtec), or loratadine (Claritin), as directed on the label, along with an ice pack for 10-15 minutes, at least 5 times a day. You will need to be patient, as this addition typically takes 12 days to resolve. Additionally, you should expect a similar, if not worse, reaction, to future bites from the same type of insect. If any other problems, please do not hesitate to return to the ER.
== END 2019-01-19 01:45 | disposition home or self-care (01) ==
LOC: JD.ED 00:38
DX: T63.481A Toxic effect of venom of other arthropod, accidental (unintentional), initial encounter (principal); F17.210 Nicotine dependence, cigarettes, uncomplicated; Z88.6 Allergy status to analgesic agent; Z91.030 Bee allergy status; Z91.048 Other nonmedicinal substance allergy status; Z86.718 Personal history of other venous thrombosis and embolism
CPT/HCPCS: 99281; 99282

== ENCOUNTER 2019-12-06 14:11 | Emergency (ER) | payer MEDICAID ==
[2019-12-06 14:22] VITALS: BP 118/76; PULSE 88
--- NOTE | 2019-12-06 14:53 | CR ---
Chest: Portable view of the chest was obtained. Comparison: Prior chest x-ray of 08/15/17. Heart size and mediastinum are normal. Lungs are clear with no acute parenchymal change. Bony structures are grossly intact. Impression: 1. Nothing acute is seen on portable chest x-ray. Diagnostic code #1 This report was dictated in MDT
[2019-12-06] MEDS ORDERED: Acetaminophen 325 MG Tab PO ONE (14:54)
--- NOTE | 2019-12-06 14:54 | EDM.PDOC ---
ED HPI GENERAL MEDICAL PROBLEM - General Chief Complaint: Respiratory Problem Stated Complaint: [facility] Time Seen by Provider: 12/06/19 14:20 Source of Information: Reports: Patient, RN Notes Reviewed History Limitations: Reports: No Limitations - History of Present Illness INITIAL COMMENTS - FREE TEXT/NARRATIVE: Patient is a 44-year-old female who is brought into the ED via [facility] ambulance service today for the evaluation of her increased shortness of breath. Patient notes she started having symptoms roughly 2 days ago, for which she thought were the start of some allergies, she commonly has these. She does note that last night, she had worsening body aches/coughing, that worsened today as well. She notes that she has a mild generalized headache, throat pain, no fevers or chills, she is having shortness of breath, but no nausea or vomiting or diarrhea. Patient notes that she was tested for COVID-19 at a clinic today and the labs are still pending at this time. Patient is vitally stable on triage, patient is afebrile with a temperature 97.1 F, blood pressure 118/76, heart rate 79, O2 sat 98 to 100% on room air, she has regular nonlabored respirations noted at a rate of 20 breaths/min., patient notes that she did take some Sudafed this morning, but has not taken any sort of Tylenol ibuprofen. The patient does state that she works in a place, with other coworkers that have tested positive for COVID 19. She does state that she is a smoker, and smokes roughly 1 pack every 3 days, has been doing this for the last 20 years, she knows last year she was also diagnosed with stage I emphysema in [place]. Treatments ANESTHESIA ASSISTANT: Reports: Other (see below) Other Treatments ANESTHESIA ASSISTANT: sudafed Generalized Pain Score (Numeric/FACES): 7 - Related Data Allergies Allergy/AdvReac Type Severity Reaction Status Date / Time venom-honey bee Allergy Anaphylactic Verified 12/06/19 14:22 [bee venom (honey bee)] Shock hydromorphone HCl AdvReac Fainting Verified 12/06/19 14:22 [From Dilaudid] preservatives in chicken Allergy Rash Uncoded 01/19/19 00:47 Home Meds: Home Meds Albuterol Sulfate 2.5 mg NEB QID PRN #1 box 12/06/19 [Rx] Past Medical History HEENT History: Reports: Impaired Vision Other HEENT History: wears contacts Cardiovascular History: Reports: Blood Clots/VTE/DVT Other Cardiovascular History: DVT to left leg in Apr 2013 Gastrointestinal History: Reports: None Genitourinary History: Reports: None 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: Ectopic , Spontaneous Other NUMERICAL CONTROL NESTING OPERATOR History: grav 8 para 4 and 3 miscarriage, currenct ectopic September 2016 tubalectomy september 2016 Musculoskeletal History: Reports: Fracture, Osteoarthritis Psychiatric History: Reports: Anxiety, Depression, Suicide Attempt, Suicidal Ideation Other Psychiatric History: has an appt to see [facility] from [facility] on September 30 Hematologic History: Reports: Anemia, Iron Deficiency Other Hematologic History: pt is A positive - Past Surgical History HEENT Surgical History: Reports: Adenoidectomy, Tonsillectomy GI Surgical History: Reports: Appendectomy Female Surgical History: Reports: Section, D&C, Other (See Below) Musculoskeletal Surgical History: Reports: ORIF Social & Family History - Family History Family Medical History: Noncontributory Cardiac: Reports: [place] Respiratory: Reports: COPD Neurological: Reports: CVA Endocrine/Metabolic: Reports: Diabetes, type II - Tobacco Use Smoking Status *Q: Current Every Day Smoker Years of Tobacco use: 20 Packs/Tins Daily: 0.5 - Caffeine Use Caffeine Use: Reports: Coffee - Recreational Drug Use Recreational Drug Use: No - Living Situation & Occupation Living situation: Reports: , with Spouse, with Family (3 kids) Occupation: Employed ED ROS GENERAL - Review of Systems Review Of Systems: See Below Constitutional: Reports: Fatigue (with generalized myalgias). Denies: Fever, Chills Respiratory: Reports: Shortness of Breath, Cough. Denies: Wheezing Cardiovascular: Denies: Chest Pain GI/Abdominal: Denies: Abdominal Pain Neurological: Reports: Headache ED EXAM, GENERAL - Physical Exam Exam: See Below Exam Limited By: No Limitations General Appearance: Alert, WD/WN, No Apparent Distress Eye Exam: Bilateral Eye: EOMI, Normal Inspection, PERRL Throat/Mouth: Normal Inspection, Normal Lips, Normal Teeth, Normal Gums, Normal Oropharynx, Normal Voice, No Airway Compromise Head: Atraumatic, Normocephalic Neck: Normal Inspection Respiratory/Chest: No Respiratory Distress, Lungs Clear, Normal Breath Sounds, No Accessory Muscle Use, Chest Non-Tender Cardiovascular: Normal Peripheral Pulses, Regular Rate, Rhythm, No Murmur Peripheral Pulses: 3+: Radial (L), Radial (R) Extremities: Normal Inspection, Normal Capillary Refill Neurological: Alert, Oriented, Normal Cognition, No Motor/Sensory Deficits Psychiatric: Normal Affect, Normal Mood Skin Exam: Warm, Dry, Intact, Normal Color, No Rash EKG INTERPRETATION EKG Date: 12/06/19 Time: 14:34 Rhythm: NSR Rate (Beats/Min): 77 [place]: Normal P-Wave: Present QRS: Normal ST-T: Normal QT: Normal EKG Interpretation Comments: 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 Diallo. Otherwise no acute ST abnormalities noted. Course - Vital Signs Last Recorded V/S: Last Vital Signs Temp 97.1 F 12/06/19 14:17 Pulse 88 12/06/19 14:17 Resp 20 12/06/19 14:17 BP 118/76 12/06/19 14:17 Pulse Ox 100 12/06/19 14:17 - Orders/Labs/Meds Orders: Active Orders 24 hr Category Date Time Status EKG Documentation Completion [RC] STAT Care 12/06/19 14:26 Ordered Labs: Laboratory Tests 12/06/19 12/06/19 12/06/19 Range/Units 14:53 14:53 14:53 WBC 6.22 (3.98-10.04) K/mm3 RBC 4.06 (3.98-5.22) M/mm3 Hgb 11.6 D (11.2-15.7) gm/dl Hct 36.5 (34.1-44.9) % MCV 89.9 (79.4-94.8) fl MCH 28.6 (25.6-32.2) pg MCHC 31.8 L (32.2-35.5) g/dl RDW Std Deviation 45.1 (36.4-46.3) fL Plt Count 210 D (182-369) K/mm3 MPV 10.5 (9.4-12.3) fl Neutrophils % (Manual) 84 H (40-60) % Band Neutrophils % 0 (0-10) % Lymphocytes % (Manual) 6 L (20-40) % Atypical Lymphs % 0 % Monocytes % (Manual) 8 (2-10) % Eosinophils % (Manual) 2 (0.7-5.8) % Basophils % (Manual) 0 L (0.1-1.2) Toxic Granulation Platelet Estimate Adequate Plt Morphology Comment Normal RBC Morph Comment Normal PT 10.9 (9.7-12.0) SECONDS INR 1.00 APTT 27 (22-31) SECONDS D-Dimer, Quantitative 0.48 (0.19-0.50) mg/L Sodium (136-145) mEq/L Potassium (3.5-5.1) mEq/L Chloride (98-107) mEq/L Carbon Dioxide (21-32) mEq/L Anion Gap (5-15) BUN (7-18) mg/dL Creatinine (0.55-1.02) mg/dL Est Cr Clr Drug Dosing mL/min Estimated GFR (MDRD) (>60) mL/min BUN/Creatinine Ratio (14-18) Glucose (74-106) mg/dL Lactic Acid (0.4-2.0) mmol/L Calcium (8.5-10.1) mg/dL Magnesium (1.8-2.4) mg/dl Ferritin (8-252) ng/ml Total Bilirubin (0.2-1.0) mg/dL AST (15-37) U/L ALT (14-59) U/L Alkaline Phosphatase (46-116) U/L Lactate Dehydrogenase (81-234) U/L Creatine Kinase (26-192) U/L Troponin I (0.00-0.056) ng/mL C-Reactive Protein 3.0 H* (<1.0) mg/dL NT-Pro-B Natriuret Pep (0-125) pg/mL Total Protein (6.4-8.2) g/dl Albumin (3.4-5.0) g/dl Globulin gm/dL Albumin/Globulin Ratio (1-2) 12/06/19 12/06/19 12/06/19 Range/Units 14:53 14:53 14:53 WBC (3.98-10.04) K/mm3 RBC (3.98-5.22) M/mm3 Hgb (11.2-15.7) gm/dl Hct (34.1-44.9) % MCV (79.4-94.8) fl MCH (25.6-32.2) pg MCHC (32.2-35.5) g/dl RDW Std Deviation (36.4-46.3) fL Plt Count (182-369) K/mm3 MPV (9.4-12.3) fl Neutrophils % (Manual) (40-60) % Band Neutrophils % (0-10) % Lymphocytes % (Manual) (20-40) % Atypical Lymphs % % Monocytes % (Manual) (2-10) % Eosinophils % (Manual) (0.7-5.8) % Basophils % (Manual) (0.1-1.2) Toxic Granulation Platelet Estimate Plt Morphology Comment RBC Morph Comment PT (9.7-12.0) SECONDS INR APTT (22-31) SECONDS D-Dimer, Quantitative (0.19-0.50) mg/L Sodium 140 (136-145) mEq/L Potassium 3.5 (3.5-5.1) mEq/L Chloride 105 (98-107) mEq/L Carbon Dioxide 24 (21-32) mEq/L Anion Gap 14.5 (5-15) BUN 9 (7-18) mg/dL Creatinine 0.7 (0.55-1.02) mg/dL Est Cr Clr Drug Dosing 113.43 mL/min Estimated GFR (MDRD) > 60 (>60) mL/min BUN/Creatinine Ratio 12.9 L (14-18) Glucose 88 (74-106) mg/dL Lactic Acid (0.4-2.0) mmol/L Calcium 8.4 L (8.5-10.1) mg/dL Magnesium 1.7 L (1.8-2.4) mg/dl Ferritin 35 (8-252) ng/ml Total Bilirubin 0.6 (0.2-1.0) mg/dL AST 4 L (15-37) U/L ALT 15 (14-59) U/L Alkaline Phosphatase 83 (46-116) U/L Lactate Dehydrogenase 114 (81-234) U/L Creatine Kinase 40 (26-192) U/L Troponin I < 0.017 (0.00-0.056) ng/mL C-Reactive Protein (<1.0) mg/dL NT-Pro-B Natriuret Pep 106 (0-125) pg/mL Total Protein 6.7 (6.4-8.2) g/dl Albumin 3.5 (3.4-5.0) g/dl Globulin 3.2 gm/dL Albumin/Globulin Ratio 1.1 (1-2) 12/05/ Range/Units 14:53 WBC (3.98-10.04) K/mm3 RBC (3.98-5.22) M/mm3 Hgb (11.2-15.7) gm/dl Hct (34.1-44.9) % MCV (79.4-94.8) fl MCH (25.6-32.2) pg MCHC (32.2-35.5) g/dl RDW Std Deviation (36.4-46.3) fL Plt Count (182-369) K/mm3 MPV (9.4-12.3) fl Neutrophils % (Manual) (40-60) % Band Neutrophils % (0-10) % Lymphocytes % (Manual) (20-40) % Atypical Lymphs % % Monocytes % (Manual) (2-10) % Eosinophils % (Manual) (0.7-5.8) % Basophils % (Manual) (0.1-1.2) Toxic Granulation Platelet Estimate Plt Morphology Comment RBC Morph Comment PT (9.7-12.0) SECONDS INR APTT (22-31) SECONDS D-Dimer, Quantitative (0.19-0.50) mg/L Sodium (136-145) mEq/L Potassium (3.5-5.1) mEq/L Chloride (98-107) mEq/L Carbon Dioxide (21-32) mEq/L Anion Gap (5-15) BUN (7-18) mg/dL Creatinine (0.55-1.02) mg/dL Est Cr Clr Drug Dosing mL/min Estimated GFR (MDRD) (>60) mL/min BUN/Creatinine Ratio (14-18) Glucose (74-106) mg/dL Lactic Acid 0.6 (0.4-2.0) mmol/L Calcium (8.5-10.1) mg/dL Magnesium (1.8-2.4) mg/dl Ferritin (8-252) ng/ml Total Bilirubin (0.2-1.0) mg/dL AST (15-37) U/L ALT (14-59) U/L Alkaline Phosphatase (46-116) U/L Lactate Dehydrogenase (81-234) U/L Creatine Kinase (26-192) U/L Troponin I (0.00-0.056) ng/mL C-Reactive Protein (<1.0) mg/dL NT-Pro-B Natriuret Pep (0-125) pg/mL Total Protein (6.4-8.2) g/dl Albumin (3.4-5.0) g/dl Globulin gm/dL Albumin/Globulin Ratio (1-2) Meds: Medications Discontinued Medications Generic Name Dose Route Start Last Admin Trade Name Freq PRN Reason Stop Dose Admin Acetaminophen 650 mg 12/06/19 14:54 12/06/19 15:17 Tylenol PO 12/06/19 14:55 650 mg NOW ONE Administration - Re-Assessments/Exams Free Text/Narrative Re-Assessment/Exam: 12/06/19 14:59 Patient presents to the ED for evaluation of her ongoing respiratory issues. She did get COVID-19 testing this morning, so one will not be repeated at today's visit. However we will get some laboratory evaluation to check for certain markers like ferritin, LDH, otherwise. Chest x-ray did not show any sign of a viral pneumonia pattern. EKG was also within normal limits. 12/06/19 15:55 Oratory evaluation has returned, white blood cell counts within normal limits, with 84% neutrophils and no bands. Metabolic panel is unremarkable, CRP mildly elevated at 3.0, but no other focal abnormalities appreciated on labs. Chest x- ray also demonstrates no sign of a viral pneumonia that would be considered for a COVID like illness. I will send the patient home with general conservative measures, and have her await her COVID testing results from the [facility]. Departure - Departure Time of Disposition: 15:56 Disposition: Home, Self-Care 01 Condition: Good Clinical Impression: Viral URI with cough - Discharge Information *PRESCRIPTION DRUG MONITORING PROGRAM REVIEWED*: No *COPY OF PRESCRIPTION DRUG MONITORING REPORT IN PATIENT JOSE: No Prescriptions: Albuterol Sulfate 2.5 mg NEB QID PRN #1 box PRN Reason: sob Instructions: Viral Respiratory Infection, [id number], Steps to Quit Smoking, [id number] Forms: ED Department Discharge Additional Instructions: You have been evaluated in the ED today for your cold like symptoms. This is likely a viral illness in etiology. Your chest x-ray showed no sign of a consolidation or pneumonia. Please increase your fluid intake. Get plenty of rest as well. You should feel better in a few days. As with any illness, please try to limit your exposure to others to help mitigate the spread of germs. Please also remember to wash your hands after you cough/sneeze. Please try to limit touching your face, and then touching other surfaces. Recommend that you take some [id number] nasal decongestants, cough/cold remedies to combat this. You may take 500mg Tylenol (acetaminophen) or 600mg Advil/Motrin (ibuprofen) every 6 hours as needed for further pain/fever relief. Do not exceed 4000 mg Tylenol or 3200 mg ibuprofen in a 24-hour time span. If you have high blood pressure, medications like Coricidin would be adequate to use. If your symptoms are not better in one week's time recommend that you follow up in a clinic or your primary care provider. Our [facility] clinic number is [phone], the [place] clinic is [phone]. Any family practice provider would be able to provide you with the services. As you reported, you were tested for COVID-19 earlier today, please go home and try to self isolate until you get the results of your test, this could be 3 to 5 business days. You were given a box of albuterol nebulizers, please use 1 neb 4 times a day as needed for shortness of breath. Please return to the ED if your symptoms change or worsen. Sepsis Event Note (ED) - Evaluation Sepsis Screening Result: No Definite Risk - Focused Exam Vital Signs: Vital Signs Temp Pulse Resp BP Pulse Ox 12/06/19 14:17 97.1 F 88 20 118/76 100 - My Orders Last 24 Hours: My Active Orders 12/06/19 14:26 EKG Documentation Completion [RC] STAT - Assessment/Plan Last 24 Hours: My Active Orders 12/06/19 14:26 EKG Documentation Completion [RC] STAT
== END 2019-12-06 18:00 | disposition home or self-care (01) ==
LOC: JD.ED 14:11
DX: J06.9 Acute upper respiratory infection, unspecified (principal); F17.210 Nicotine dependence, cigarettes, uncomplicated; Z91.030 Bee allergy status; Z88.5 Allergy status to narcotic agent; Z91.018 Allergy to other foods
CPT/HCPCS: 36415; 71045; 80053; 82550; 82728; 83605; 83615; 83735; 83880; 84484; 85007; 85027; 85379; 85610; 85730; 86140; 93005; 99284; A9270; 93010; 99283

== ENCOUNTER 2020-07-30 14:29 | Emergency (ER) | payer MEDICAID ==
[2020-07-30] MEDS ORDERED: Ondansetron 4 MG/2 ML SDV IVPUSH ONE (14:56)
[2020-07-30] MEDS ORDERED: Sodium Chloride 0.9% 1,000 ML IV STA (14:56)
[2020-07-30] MEDS ORDERED: Morphine 2 MG/ML SYRINGE IVPUSH ONE ×2 (14:56→16:02)
--- NOTE | 2020-07-30 15:31 | EDM.PDOC ---
ED HPI GENERAL MEDICAL PROBLEM - General Chief Complaint: Gastrointestinal Problem Stated Complaint: UPPER ABD PAIN/VOMITING/DIAHERRA Time Seen by Provider: 07/30/20 14:38 Source of Information: Reports: Patient, RN Notes Reviewed History Limitations: Reports: No Limitations - History of Present Illness INITIAL COMMENTS - FREE TEXT/NARRATIVE: Pt is a 44 year old female presenting to the ER with c/o RUQ abdominal pain, nausea, vomiting and diarrhea that began this morning around 0730. She has had nothing to eat since last evening. Denies fever or chills. She does still have her gallbladder. States she had similar pain last year; however, it was not as severe as it is today. She an ultrasound completed at that time and states that there was no abnormality. Right Upper Abdomen Pain Score (Numeric/FACES): 7 - Related Data Allergies Allergy/AdvReac Type Severity Reaction Status Date / Time venom-honey bee Allergy Severe Anaphylactic Verified 07/30/20 14:45 [bee venom (honey bee)] Shock hydromorphone HCl AdvReac Severe Fainting Verified 07/30/20 14:45 [From Dilaudid] preservatives in chicken Allergy Severe Rash Uncoded 07/30/20 14:45 Home Meds: Home Meds Albuterol Sulfate 2.5 mg NEB QID PRN #1 box 12/06/19 [Rx] Citalopram [Citalopram HBr] 20 mg PO DAILY 07/30/20 [History] Dicyclomine [Bentyl] 20 mg PO TID PRN #9 tab 07/30/20 [Rx] Ondansetron [Zofran ODT] 4 mg PO Q6H PRN #10 tab.dis 07/30/20 [Rx] Past Medical History HEENT History: Reports: Impaired Vision Other HEENT History: wears contacts Cardiovascular History: Reports: Blood Clots/VTE/DVT Other Cardiovascular History: DVT to left leg in Apr 2013 Gastrointestinal History: Reports: None Genitourinary History: Reports: None 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 , 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 Other PARTS ASSEMBLER History: grav 8 para 5 and 3 miscarriage, currenct ectopic September 2016 tubalectomy september 2016 Musculoskeletal History: Reports: Fracture, Osteoarthritis Psychiatric History: Reports: Anxiety, Depression, Suicide Attempt, Suicidal Ideation Other Psychiatric History: has an appt to see Dayady from [facility] on September 30 Hematologic History: Reports: Anemia, Iron Deficiency Other Hematologic History: pt is A positive - Infectious Disease History Infectious Disease History: Reports: Chicken Pox - Past Surgical History HEENT Surgical History: Reports: Adenoidectomy, Tonsillectomy Cardiovascular Surgical History: Reports: None GI Surgical History: Reports: Appendectomy Female Surgical History: Reports: Section, D&C, Other (See Below) Other Female Surgeries/Procedures: salpingectomy Musculoskeletal Surgical History: Reports: ORIF Social & Family History - Family History Family Medical History: No Pertinent Family History Cardiac: Reports: NM Respiratory: Reports: COPD Neurological: Reports: CVA Endocrine/Metabolic: Reports: Diabetes, type II - Tobacco Use Tobacco Use Status *Q: Current Every Day Tobacco User Years of Tobacco use: 18 Packs/Tins Daily: 0.5 - Caffeine Use Caffeine Use: Reports: Coffee - Recreational Drug Use Recreational Drug Use: Yes Drug Use in Last 12 Months: No - Living Situation & Occupation Living situation: Reports: , with Spouse, with Family (3 kids) Occupation: Employed ED ROS GENERAL - Review of Systems Review Of Systems: See Below Constitutional: Reports: Decreased Appetite. Denies: Fever, Chills HEENT: Reports: No Symptoms Respiratory: Reports: No Symptoms Cardiovascular: Reports: No Symptoms Endocrine: Reports: No Symptoms GI/Abdominal: Reports: Abdominal Pain (RUQ), Diarrhea, Decreased Appetite, Nausea, Vomiting : Reports: No Symptoms Musculoskeletal: Reports: No Symptoms Skin: Reports: No Symptoms Neurological: Reports: No Symptoms Psychiatric: Reports: No Symptoms Hematologic/Lymphatic: Reports: No Symptoms Immunologic: Reports: No Symptoms ED EXAM, GI/ABD - Physical Exam Exam: See Below Exam Limited By: No Limitations General Appearance: Alert, WD/WN, No Apparent Distress Respiratory/Chest: No Respiratory Distress, Lungs Clear, Normal Breath Sounds, No Accessory Muscle Use, Chest Non-Tender Cardiovascular: Normal Peripheral Pulses, Regular Rate, Rhythm, No Edema, No Gallop, No JVD, No Murmur, No Rub GI/Abdominal Exam: Normal Bowel Sounds, Soft, No Organomegaly, No Distention, No Abnormal Bruit, No Mass, Pelvis Stable, Tender (RUQ. Positive murphys sign.) Neurological: Alert, Oriented, CN II-XII Intact, Normal Cognition, Normal Gait, Normal Reflexes, No Motor/Sensory Deficits Psychiatric: Normal Affect, Normal Mood Course - Vital Signs Last Recorded V/S: Last Vital Signs Temp 99.6 F 07/30/20 16:50 Pulse 70 07/30/20 16:50 Resp 16 07/30/20 16:50 BP 109/71 07/30/20 16:50 Pulse Ox 99 07/30/20 16:50 - Orders/Labs/Meds Labs: Laboratory Tests 07/30/20 07/30/20 07/30/20 Range/Units 14:58 14:58 14:58 WBC 14.95 H (3.98-10.04) K/mm3 RBC 4.71 (3.98-5.22) M/mm3 Hgb 13.6 D (11.2-15.7) gm/dl Hct 41.7 (34.1-44.9) % MCV 88.5 (79.4-94.8) fl MCH 28.9 (25.6-32.2) pg MCHC 32.6 (32.2-35.5) g/dl RDW Std Deviation 44.7 (36.4-46.3) fL Plt Count 256 (182-369) K/mm3 MPV 10.2 (9.4-12.3) fl Neut % (Auto) 80.1 H (34.0-71.1) % Lymph % (Auto) 9.2 L (19.3-51.7) % [place] % (Auto) 6.2 (4.7-12.5) % Eos % (Auto) 4.3 (0.7-5.8) Baso % (Auto) 0.1 (0.1-1.2) % Neut # (Auto) 11.97 H (1.56-6.13) K/mm3 Lymph # (Auto) 1.38 (1.18-3.74) K/mm3 [place] # (Auto) 0.92 H (0.24-0.36) K/mm3 Eos # (Auto) 0.65 H (0.04-0.36) K/mm3 Baso # (Auto) 0.01 (0.01-0.08) K/mm3 Manual Slide Review Abnormal smear Sodium 140 (136-145) mEq/L Potassium 3.7 (3.5-5.1) mEq/L Chloride 104 (98-107) mEq/L Carbon Dioxide 24 (21-32) mEq/L Anion Gap 15.7 H (5-15) BUN 12 (7-18) mg/dL Creatinine 0.8 (0.55-1.02) mg/dL Est Cr Clr Drug Dosing 99.25 mL/min Estimated GFR (MDRD) > 60 (>60) mL/min BUN/Creatinine Ratio 15.0 (14-18) Glucose 99 (74-106) mg/dL Calcium 9.0 (8.5-10.1) mg/dL Total Bilirubin 0.3 (0.2-1.0) mg/dL AST 9 L (15-37) U/L ALT 23 (14-59) U/L Alkaline Phosphatase 98 (46-116) U/L C-Reactive Protein 1.3 H* (<1.0) mg/dL Total Protein 7.1 (6.4-8.2) g/dl Albumin 3.8 (3.4-5.0) g/dl Globulin 3.3 gm/dL Albumin/Globulin Ratio 1.2 (1-2) Lipase 51 L (73-393) U/L HCG, Qual Negative (NEGATIVE) Urine Color (Yellow) Urine Appearance (Clear) Urine pH (5.0-8.0) Ur Specific [place] (1.005-1.030) Urine Protein (Negative) Urine Glucose (UA) (Negative) Urine Ketones (Negative) Urine Occult Blood (Negative) Urine Nitrite (Negative) Urine Bilirubin (Negative) Urine Urobilinogen (0.2-1.0) Ur Leukocyte Esterase (Negative) Urine RBC (0-5) /hpf Urine WBC (0-5) /hpf Ur Squamous Epith Cells (0-5) /hpf Urine Bacteria (FEW) /hpf Urine Mucus (FEW) /hpf // Range/Units 16:06 WBC (3.98-10.04) K/mm3 RBC (3.98-5.22) M/mm3 Hgb (11.2-15.7) gm/dl Hct (34.1-44.9) % MCV (79.4-94.8) fl MCH (25.6-32.2) pg MCHC (32.2-35.5) g/dl RDW Std Deviation (36.4-46.3) fL Plt Count (182-369) K/mm3 MPV (9.4-12.3) fl Neut % (Auto) (34.0-71.1) % Lymph % (Auto) (19.3-51.7) % [place] % (Auto) (4.7-12.5) % Eos % (Auto) (0.7-5.8) Baso % (Auto) (0.1-1.2) % Neut # (Auto) (1.56-6.13) K/mm3 Lymph # (Auto) (1.18-3.74) K/mm3 [place] # (Auto) (0.24-0.36) K/mm3 Eos # (Auto) (0.04-0.36) K/mm3 Baso # (Auto) (0.01-0.08) K/mm3 Manual Slide Review Sodium (136-145) mEq/L Potassium (3.5-5.1) mEq/L Chloride (98-107) mEq/L Carbon Dioxide (21-32) mEq/L Anion Gap (5-15) BUN (7-18) mg/dL Creatinine (0.55-1.02) mg/dL Est Cr Clr Drug Dosing mL/min Estimated GFR (MDRD) (>60) mL/min BUN/Creatinine Ratio (14-18) Glucose (74-106) mg/dL Calcium (8.5-10.1) mg/dL Total Bilirubin (0.2-1.0) mg/dL AST (15-37) U/L ALT (14-59) U/L Alkaline Phosphatase (46-116) U/L C-Reactive Protein (<1.0) mg/dL Total Protein (6.4-8.2) g/dl Albumin (3.4-5.0) g/dl Globulin gm/dL Albumin/Globulin Ratio (1-2) Lipase (73-393) U/L HCG, Qual (NEGATIVE) Urine Color Yellow (Yellow) Urine Appearance Clear (Clear) Urine pH 5.5 (5.0-8.0) Ur Specific [place] 1.020 (1.005-1.030) Urine Protein Negative (Negative) Urine Glucose (UA) Negative (Negative) Urine Ketones Negative (Negative) Urine Occult Blood Negative (Negative) Urine Nitrite Negative (Negative) Urine Bilirubin Negative (Negative) Urine Urobilinogen 0.2 (0.2-1.0) Ur Leukocyte Esterase Negative (Negative) Urine RBC 0-5 (0-5) /hpf Urine WBC 0-5 (0-5) /hpf Ur Squamous Epith Cells 0-5 (0-5) /hpf Urine Bacteria Few (FEW) /hpf Urine Mucus Few (FEW) /hpf Meds: Medications Discontinued Medications Generic Name Dose Route Start Last Admin Trade Name Joshq PRN Reason Stop Dose Admin Dicyclomine HCl 20 mg 07/30/20 16:23 07/30/20 16:27 Dicyclomine 10 Mg Cap PO 07/30/20 16:24 20 mg ONETIME ONE Administration Sodium Chloride 1,000 mls @ 150 mls/hr 07/30/20 14:56 07/30/20 15:19 Normal Saline IV 07/30/20 21:35 150 mls/hr NOW STA Administration Morphine Sulfate 2 mg 07/30/20 14:56 07/30/20 15:19 Morphine 2 Mg/Ml Syringe IVPUSH 07/30/20 14:57 2 mg ONETIME ONE Administration Morphine Sulfate 2 mg 07/30/20 16:02 07/30/20 16:15 Morphine 2 Mg/Ml Syringe IVPUSH 07/30/20 16:03 2 mg ONETIME ONE Administration Ondansetron HCl 4 mg 07/30/20 14:56 07/30/20 15:19 Ondansetron 4 Mg/2 Ml Sdv IVPUSH 07/30/20 14:57 4 mg ONETIME ONE Administration - Re-Assessments/Exams Free Text/Narrative Re-Assessment/Exam: Patient is a 44-year-old female presenting to the emergency department compla ints of acute onset of right upper quadrant abdominal pain, nausea, vomiting, and diarrhea at 7 AM this morning. On exam, she does have diffuse right upper quadrant tenderness positive Allison sign. I have ordered CBC, CMP, CRP, lipase, hCG, urinalysis. She is allergic to Dilaudid, therefore I will give her 2 mg of morphine, Zofran, and NS. We will complete a ultrasound of the right upper quadrant. 07/30/20 16:29 Hematology was significant for WBC elevated at 14.95, anion gap 15.7, CRP 1.3. Lipase, liver enzymes are normal. White count is likely due to a stress response. Ultrasound of the right upper quadrant shows no acute abnormalities. Findings discussed with the patient. Discussed that she is likely suffering from a viral gastroenteritis given the nausea, vomiting, and diarrhea. I will give her a dose of Bentyl now. I will send prescription for Bentyl and Zofran. Recommend clear liquid diet for 24 to 72 hours. Discharge instructions as documented. Departure - Departure Time of Disposition: 16:31 Disposition: Home, Self-Care 01 Condition: Good Clinical Impression: Nausea vomiting and diarrhea, Abdominal pain - Discharge Information *PRESCRIPTION DRUG MONITORING PROGRAM REVIEWED*: No *COPY OF PRESCRIPTION DRUG MONITORING REPORT IN PATIENT JOSE: No Prescriptions: Dicyclomine [Bentyl] 20 mg PO TID PRN #9 tab PRN Reason: Abdominal Pain Ondansetron [Zofran ODT] 4 mg PO Q6H PRN #10 tab.dis PRN Reason: Nausea/Vomiting Instructions: Diarrhea, Adult, Nausea and Vomiting, Adult, [id number], Abdominal Pain, Adult, [id number] Referrals: Raisa Wilson PA-C [Primary Care Provider] - Forms: ED Department Discharge, ED Return to Work/School Form Additional Instructions: You were seen in the emergency department today for abdominal pain, nausea, vomiting, and diarrhea. Work-up included blood work, urinalysis, and ultrasound of the right upper abdomen. Results of your work-up were found to be normal. Her gallbladder shows no abnormalities. As we discussed, you are likely suffering from a viral gastroenteritis. A prescription for Bentyl for abdominal cramping and Zofr[place] for [place]. Use these medications as prescribed. Recommend clear liquid diet for the next 24 to 72 hours and then advance as tolerated. Avoid dairy products or fruit juices until symptoms have completely resolved. Return to ER as needed. Sepsis Event Note (ED) - Evaluation Sepsis Screening Result: No Definite Risk
--- NOTE | 2020-07-30 16:18 | US ---
Limited abdominal ultrasound: Multiple real-time images were obtained of the right upper abdomen. Comparison: Previous right upper quadrant abdominal ultrasound of 12/28/18. Liver contains no focal abnormality. Pancreas is poorly seen. Visualized portions of the pancreas show no discrete abnormality. Gallbladder contains no shadowing gallstones. No gallbladder wall thickening or biliary duct dilatation is seen. Right kidney shows no hydronephrosis or mass. Right kidney has a length of 11.3 cm. Proximal aorta is not optimally seen but is within normal limits at 2.5 cm proximally. Inferior vena cava is patent. Impression: 1. Nothing acute is seen on right upper quadrant abdominal ultrasound. Diagnostic code #1
[2020-07-30] MEDS ORDERED: Dicyclomine 10 MG Cap PO ONE (16:23)
[2020-07-30 17:01] VITALS: BP 109/71; PULSE 70
== END 2020-07-30 16:55 | disposition home or self-care (01) ==
LOC: JD.ED 14:29
DX: R10.11 Right upper quadrant pain (principal); R11.2 Nausea with vomiting, unspecified; R19.7 Diarrhea, unspecified; R63.0 Anorexia; D72.829 Elevated white blood cell count, unspecified; Z72.0 Tobacco use; Z91.030 Bee allergy status; Z88.5 Allergy status to narcotic agent; Z91.018 Allergy to other foods
CPT/HCPCS: 36415; 76705; 80053; 81001; 83690; 84703; 85025; 86140; 96374; 96375; 96376; 99284; A9270; J2270; J2405; J7030

== ENCOUNTER 2020-08-26 06:47 | Observation (INO) | payer MEDICAID ==
[~2020-08-26 06:47] MED LIST: Lactated Ringers 1,000 ML IV SCH; Lidocaine 1%/Sod Bicarbonate in NS 8.4% 1 ML Syringe IDERM PRN; Sodium Chloride 0.9% 10 ML Syringe FLUSH PRN
--- NOTE | 2020-08-26 07:16 | PCM.PREANE ---
Preanesthetic Assessment - Procedure Proposed Procedure: [facility] - Anesthesia/Transfusion/Family Hx Anesthesia History: Prior Anesthesia Without Reaction Transfusion History: Prior Transfusion Without Reaction (for ectopic about 2 years ago) - Review of Systems General: No Symptoms Pulmonary: No Symptoms, Cough (smoker's) Cardiovascular: No Symptoms Gastrointestinal: No Symptoms Neurological: No Symptoms Other: Reports: None - Physical Assessment NPO Status Date: 08/25/20 NPO Status Time: 22:00 Vital Signs: 115/80 78 97% ASA Class: 2 Mental Status: Alert & Oriented x3 Dentition: Reports: Normal Dentition Thyro-Mental Finger Breadths: 3 Mouth Opening Finger Breadths: 3 ROM/Head Extension: Full Lungs: Clear to Auscultation, Normal Respiratory Effort Cardiovascular: Regular Rate, Regular Rhythm - Lab Values: Laboratory Last Values Urine Color Yellow (Yellow) 08/26/20 06:52 Urine Appearance Clear (Clear) 08/26/20 06:52 Urine pH 5.5 (5.0-8.0) 08/26/20 06:52 Ur Specific [place] > or = 1.030 (1.005-1.030) 08/26/20 06:52 Urine Protein Negative (Negative) 08/26/20 06:52 Urine Glucose (UA) Negative (Negative) 08/26/20 06:52 Urine Ketones Negative (Negative) 08/26/20 06:52 Urine Occult Blood 2+ (Negative) H 08/26/20 06:52 Urine Nitrite Negative (Negative) 08/26/20 06:52 Urine Bilirubin Negative (Negative) 08/26/20 06:52 Urine Urobilinogen 0.2 (0.2-1.0) 08/26/20 06:52 Ur Leukocyte Esterase Negative (Negative) 08/26/20 06:52 Urine HCG, Qual Negative (NEGATIVE) 08/26/20 06:52 - Allergies Allergies/Adverse Reactions: Allergies Allergy/AdvReac Type Severity Reaction Status Date / Time venom-honey bee Allergy Severe Anaphylactic Verified 08/25/20 13:48 [bee venom (honey bee)] Shock phenytoin [From Dilantin] AdvReac Fever Verified 08/25/20 13:49 - Acknowledgements Anesthesia Type Planned: General Anesthesia Pt an Appropriate Candidate for the Planned Anesthesia: Yes Alternatives and Risks of Anesthesia Discussed w Pt/Guardian: Yes Pt/Guardian Understands and Agrees with Anesthesia Plan: Yes PreAnesthesia Questionnaire HEENT History: Reports: Impaired Vision Other HEENT History: wears contacts Cardiovascular History: Reports: Blood Clots/VTE/DVT Respiratory History: Reports: Other (See Below) Other Respiratory History: acute URI, chest congestion Gastrointestinal History: Reports: Other (See Below) Other Gastrointestinal History: abdominal pain, gastritis Genitourinary History: Reports: None 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 , 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 Musculoskeletal History: Reports: Fracture, Osteoarthritis, Other (See Below) Other Musculoskeletal History: body aches, back pain Neurological History: Reports: Other (See Below) Other Neuro History: occipital neuralgia, shakiness, hand tremor Psychiatric History: Reports: Anxiety, Depression, Suicide Attempt, Suicidal Ideation Other Psychiatric History: ETOH abuse Endocrine/Metabolic History: Reports: Obesity/BMI 30+ Hematologic History: Reports: Anemia, Iron Deficiency Other Hematologic History: blood clotting disorder Oncologic (Cancer) History: Reports: None Dermatologic History: Reports: Other (See Below) Other Dermatologic History: groin cyst, urticaria, skin inflammation - Infectious Disease History Infectious Disease History: Reports: None - Past Surgical History Head Surgeries/Procedures: Reports: None HEENT Surgical History: Reports: Adenoidectomy, Tonsillectomy Cardiovascular Surgical History: Reports: None Respiratory Surgical History: Reports: None GI Surgical History: Reports: Appendectomy Female Surgical History: Reports: Section, D&C, Other (See Below) Other Female Surgeries/Procedures: salpingectomy Endocrine Surgical History: Reports: None Neurological Surgical History: Reports: None Musculoskeletal Surgical History: Reports: ORIF Oncologic Surgical History: Reports: None - SUBSTANCE USE Tobacco Use Status *Q: Current Every Day Tobacco User Recreational Drug Use History: No - HOME MEDS Home Medications: Home Meds Citalopram [Citalopram HBr] 20 mg PO DAILY 07/30/20 [History] Dicyclomine [Bentyl] 20 mg PO TID PRN #9 tab 07/30/20 [Rx] EPINEPHrine [Epipen] 1 dose IM ONETIME PRN 08/25/20 [History] - CURRENT (IN HOUSE) MEDS Current Meds: Current Medications Enoxaparin Sodium (Enoxaparin 40 Mg/0.4 Ml Syringe) 40 mg SUBCUT ONETIME JILLIAN Stop: 08/26/20 08:00 Last Admin: 08/26/20 07:04 Dose: 40 mg Documented by: Lactated Ringer's (Ringers, Lactated) 1,000 mls @ 125 mls/hr IV ASDIRECTED JILLIAN Stop: 08/26/20 23:00 Lidocaine/Sodium Bicarbonate (Lidocaine 1%/Sod Bicarbonate In Ns 8.4% 1 Ml Syringe) 0.25 ml IDERM ONETIME PRN PRN Reason: Prior to IV Start Stop: 08/26/20 18:00 Sodium Chloride (Sodium Chloride 0.9% 10 Ml Syringe) 10 ml FLUSH ASDIRECTED PRN PRN Reason: Keep Vein Open Stop: 08/26/20 18:00
[2020-08-26] MEDS ORDERED: Propofol 200 MG/20 ML SDV ONE (07:18)
[2020-08-26] MEDS ORDERED: HYDROmorphone 0.5 MG/0.5 ML Syringe ONE ×2 (07:18→10:19)
[2020-08-26] MEDS ORDERED: Midazolam 1 MG/ML 2 ML SDV ONE (07:19)
[2020-08-26] MEDS ORDERED: Ondansetron 4 MG/2 ML SDV ONE (07:19)
[2020-08-26] MEDS ORDERED: Succinylcholine/Sod PF 100 MG/5 ML SYRINGE IV ONE (07:19)
[2020-08-26] MEDS ORDERED: fentaNYL 250 MCG/5 ML SDV ONE (07:19)
[2020-08-26] MEDS ORDERED: Lidocaine 1% 4 ML ONE (07:19)
[2020-08-26] MEDS ORDERED: Sodium Chloride 0.9% 50 ML SDV ONE (07:24)
[2020-08-26] MEDS ORDERED: Lidocaine 1% with EPINEPHrine 1:100,000 10 ML MDV ONE (07:24)
[2020-08-26] MEDS ORDERED: Bupivacaine 0.5% 30 ML SDV ONE (07:24)
[2020-08-26] MEDS ORDERED: Enoxaparin 40 MG/0.4 ML Syringe SUBCUT SCH (07:30)
[2020-08-26] MEDS ORDERED: diphenhydrAMINE 50 MG/ML SDV ONE (08:55)
[2020-08-26] MEDS ORDERED: ceFAZolin 1 GM Vial ONE (08:58)
[2020-08-26] MEDS ORDERED: HYDROmorphone 0.5 MG/0.5 ML Syringe IVPUSH PRN (09:28)
[2020-08-26] MEDS ORDERED: fentaNYL 100 MCG/2 ML SDV IVPUSH PRN (09:28)
[2020-08-26] MEDS ORDERED: Dexmedetomidine 200 MCG/2 ML SDV ONE (10:00)
[2020-08-26] MEDS ORDERED: Lactated Ringers 1,000 ML ONE ×2 (10:13→10:14)
--- NOTE | 2020-08-26 10:48 | PCM.POSTAN ---
POST ANESTHESIA ASSESSMENT - MENTAL STATUS Mental Status: Somnolent - VITAL SIGNS Vital Signs: Last Vital Signs Temp 99.3 F 08/26/20 10:31 Pulse 53 L 08/26/20 10:31 Resp 23 H 08/26/20 10:31 BP 86/40 L 08/26/20 10:31 Pulse Ox 95 08/26/20 10:31 - RESPIRATORY Respiratory Status: Respiratory Rate WNL, Airway Patent, O2 Saturation Stable - CARDIOVASCULAR CV Status: Slow Pulse Rate (Glycopyrrolate given), Low Blood Pressure - GASTROINTESTINAL GI Status: No Symptoms - PAIN Pain Score: 0 - POST OP HYDRATION Hydration Status: Adequate & Stable
--- NOTE | 2020-08-26 10:54 | PCM.OPNOTE ---
- General Post-Op/Procedure Note Date of Surgery/Procedure: 08/26/20 Operative Procedure(s): Laparoscopic-assisted vaginal hysterectomy with right salpingectomy Findings: Overall normal-appearing uterus, cervix and right fallopian tube. Left fallopian tube was surgically absent from previous salpingectomy due to ectopic . Visualized portions of the intestines and upper abdomen were normal in appearance. The left ovary was grossly normal in appearance. The right ovary was overall normal with a small 1 to 2 cm cyst present. The cyst appeared to be a clear fluid cyst and was felt to be a physiologic cyst. This was not removed. Pre Op Diagnosis: Abnormal uterine bleeding, menorrhagia, dysmenorrhea, female pelvic pain and right ovarian cyst Post-Op Diagnosis: Same Anesthesia Technique: General ET Tube Primary Surgeon: Zach Celestin Anesthesia Provider: Flex Reddy Collections Representative: Shadia Boone Collections Representative: Olena Downey Reason Collections Representative Was Necessary: Patient safety and reduction of morbidity and mortality Role of Collections Representative: Use of laparoscopic instruments during the case and retraction for visualization Pathology: Uterus, cervix and right fallopian tube Fluid Replacement, Intraop: 2,300 Output, Urine Amount: 300 EBL in mLs: 350 Complications: None Condition: Good Free Text/Narrative:: The patient was seen in the preoperative holding area and risks, benefits, indications, and alternatives of the procedure were reviewed with the patient and she desired to proceed with a laparoscopic assisted vaginal hysterectomy, bilateral salpingectomy, possible unilateral or bilateral salpingo-oophorectomy, possible ovarian cystectomy and possible total abdominal hysterectomy. Consents were reviewed. The patient was taken back to the OR and given general anesthesia with an endotracheal tube which was placed without difficulty. She was placed in dorsal lithotomy position using Yellofin stirrups. She was prepped and draped in normal sterile fashion. A Sena catheter was placed without difficulty. Attention was then turned to her umbilicus and it was injected with 0.5% Marcaine and a 5 mm stab incision was made with a scalpel and a Veress needle was then inserted through the incision. The gas was turned on, with an opening pressure of 6 mmHg. Pneumoperitoneum was continued until 15 mmHg pressure. A 5 mm trocar was then inserted under direct visualization through the incision without difficulty. Attention was then turned to the patient's right lower quadrant where an avascular space approximately senior care between the ASIS and the umbilicus was identified. Local anesthetic was injected and a 5 mm incision was made with a scalpel. A 5 mm trocar was then inserted under direct visualization of the laparoscope. Attention was then turned to the left lower quadrant, where again an avascular portion of the abdominal wall was identified approximately senior care between the ASIS and the umbilicus. Local anesthetic was injected and a scalpel was used to make a 5 mm incision. A 5 mm trocar was inserted under direct visualization with the laparoscope. Attention was then turned to the pelvis where the uterus was visualized and noted be normal in appearance with normal appearing right fallopian tube and normal-appearing left ovary. The left fallopian tube was surgically absent from previous surgical procedure. The right ovary was overall normal in appearance but did have a small 1 to 2 cm suspected physiologic cyst present. This was felt to be a normal physiologic simple cyst and was not removed during the case. The atraumatic grasper was then removed from the right lower trocar and a Enseal vessel sealing device was introduced and was used to transect the right fallopian tube and round ligament. The mesosalpinx connecting the right fallopian tube was transected from the ovary and underlying tissue. The right round ligament was then transected using the Enseal vessel sealing device. The utero-ovarian ligament was then transected using the Enseal vessel sealing device. The right side of the uterus and broad ligament were then transected using the Enseal vessel sealing device until the level of the uterovesical peritoneal reflection. A bladder flap was then created using the Enseal device by dissecting the bladder off the lower uterine segment. This was repeated on the patient's left side. The utero- ovarian ligament was transected using Enseal vessel sealing device. The left round ligament was transected using Enseal vessel sealing device and the broad ligament was transected to the level of the uterovesical peritoneal reflection. This was connected to the previously made bladder flap. The pelvis was then inspected for hemostasis at this time and hemostasis was noted. All instruments were removed from the abdomen. Attention was then turned to the patient's perineum where a weighted speculum was placed into the vagina and a Lansing retractor was used to visualize the cervix. The cervix was grasped with a double-tooth tenaculum. The cervical reflection point was then injected circumferentially with 0.25% lidocaine with epinephrine. The cervix was then circumferentially incised with a scalpel. The bladder was then dissected off the pubovesical cervical fascia anteriorly with Metzenbaum scissors. The same procedure was performed posteriorly and the posterior cul-de-sac was entered sharply without difficulty using Metzenbaum scissors. At this point, an Enseal vessel sealing device was placed over the uterosacral ligaments on the patient's left side. These were cauterized and ligated with the device. This was repeated on the patient's right side. Hemostasis was assured. The cardinal ligaments were then clamped on both sides using the Enseal vessel sealing device, cauterized and transected with the device. The anterior cul-de-sac continued to be developed and the bladder was dissected off further from the uterus. The anterior cul-de-sac was able to be should entered using sharp dissection with Metzenbaum scissors. The uterine artery on the patient's left and right side were clamped using the Enseal vessel sealing device, cauterized and transected. The remainder of the broad ligament attachments on the bilateral sides were then serially clamped with the Enseal vessel sealing device, cauterized and transected with the device. Excellent hemostasis was noted. The cervix and uterus was able to be delivered at this time. The posterior vaginal cuff was closed with running locked sutures of 0 Monocryl. The vaginal cuff was then closed in a horizontal fashion using running locked sutures with 0 Monocryl suture. All instruments were removed from the vagina. Attention was then turned to the abdomen where a laparoscope was inserted and was used to check for hemostasis. Hemostasis was noted at this time. The case was complete at this time. The gas was then evacuated from the peritoneum and trocars removed. These were closed using 4-0 Monocryl suture and Dermabond. The patient was awoken from general anesthesia and taken to the PACU for recovery in stable condition. She will be discharged to home once she is able to meet all postoperative milestones including tolerating small amount of oral intake and liquids, ambulate without difficulty, her pain controlled with oral medications and able to void without difficulty. She will follow-up in the clinic in 2 weeks or earlier as needed. Sponge, lap, needle, and instrument counts were correct x 2. 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 We will be monitoring for bleeding while the patient is being kept overnight. Plan for CBC in the morning of POD #1. Zach Celestin MD 10:53 AM 08/26/2020 Review of images from the procedure IMG 001: Uterus with right fallopian tube and left ovary visualized. Grossly normal-appearing uterus. IMG 002: Right ovary and fallopian tube grossly normal in appearance. Visualized portions of the uterus were normal. Small visualized portion of the ovarian cyst at the inferior portion of the ovary in this image. IMG 003: Grossly normal-appearing left ovary without any abnormalities noted. IMG 004: Pelvis after hysterectomy with hemostasis noted. IMG 005: Right broad ligament attachment site with hemostasis noted after hysterectomy. IMG 006: Left broad ligament attachment site with hemostasis noted after hysterectomy. IMG 007: Right upper quadrant with grossly normal-appearing visualized portions of the liver. IMG 008: Left upper quadrant with grossly normal appearing visualized portions of the liver edge and stomach. IMG 009: Left lower quadrant port site after removal of the trocar with hemostasis noted.
[2020-08-26] MEDS ORDERED: Ondansetron 4 MG Tab.DIS PO PRN (12:36)
[2020-08-26] MEDS ORDERED: Ibuprofen 400 MG Tab PO PRN (12:36)
[2020-08-26] MEDS ORDERED: Acetaminophen/oxyCODONE 325-5 MG Tab PO PRN (12:36)
[2020-08-26] MEDS: Citalopram 20 MG Tab PO SCH (13:03)
[2020-08-26] MEDS: Acetaminophen/oxyCODONE 325-5 MG Tab PO PRN ×2 (13:46→18:04)
[2020-08-26] MEDS: HYDROmorphone 1 MG/ML Syringe IVPUSH PRN ×2 (18:59→21:54)
[2020-08-26] MEDS: Docusate Sodium 100 MG Cap PO SCH (20:08)
[2020-08-27] MEDS: Acetaminophen/oxyCODONE 325-5 MG Tab PO PRN ×4 (00:08→20:36)
[2020-08-27] MEDS: Docusate Sodium 100 MG Cap PO SCH ×2 (08:09→20:34)
[2020-08-27] MEDS: Citalopram 20 MG Tab PO SCH (08:09)
--- NOTE | 2020-08-27 08:35 | US ---
Bilateral lower extremity deep venous ultrasound: Duplex and color Doppler evaluation was obtained of the right and left common femoral, greater saphenous, superficial femoral, popliteal, posterior tibial and peroneal veins. Comparison: Prior left lower extremity deep venous ultrasound of 08/02/18. Findings: There is evidence of venous thrombosis within the left greater saphenous vein from the distal side through the mid calf. Additional superficial thrombophlebitis is seen within the left calf. Deep veins show normal phasic flow, augmentation and compression. Impression: 1. Venous thrombosis within the left greater saphenous vein as well as additional superficial thrombophlebitis within the left calf. 2. No findings of deep venous thrombosis is seen within either the right or left lower extremities. Diagnostic code #3
[2020-08-27] MEDS ORDERED: Enoxaparin 80 MG/0.8 ML Syringe SUBCUT ONE (09:00)
[2020-08-27] MEDS ORDERED: Enoxaparin 40 MG/0.4 ML Syringe SUBCUT SCH (09:00)
[2020-08-27] MEDS: HYDROmorphone 1 MG/ML Syringe IVPUSH PRN (09:09)
[2020-08-27] MEDS: Ibuprofen 600 MG Tab PO PRN ×2 (12:26→17:54)
--- NOTE | 2020-08-27 13:12 | PCM.SN.2 ---
- Free Text/Narrative Note: Post Op Note Subjective: Patient reports feeling well overall. Pain minimal and controlled with oral medications overnight. In the late evening last night she did require 1 dose of IV pain medication for breakthrough pain. Tolerating regular diet. Reports not passing flatus. Voiding without difficulty. Ambulating without difficulty. Reports this morning she noted some pain and swelling in her left lower leg. She noticed that some of the veins were somewhat hard and in the middle of the calf there was an area that was also firm. No erythema around these areas. Objective: Vitals Vital Signs - 24 hr 08/26/20 08/26/20 08/26/20 13:49 14:02 14:25 Temperature Pulse, 63 71 71 Peripheral Respiratory Rate Blood Pressure 110/54 L 117/58 L 117/62 O2 Sat by Pulse 99 100 95 Oximetry 08/26/20 08/26/20 08/26/20 14:32 15:02 15:43 Temperature Pulse, 81 56 L 72 Peripheral Respiratory Rate Blood Pressure 110/69 101/55 L 101/52 L O2 Sat by Pulse 95 91 L 96 Oximetry 08/26/20 08/26/20 08/27/20 16:01 20:11 00:04 Temperature 36.8 C 36.6 C Pulse, 56 L 75 61 Peripheral Respiratory 18 16 Rate Blood Pressure 109/49 L 123/87 103/58 L O2 Sat by Pulse 93 L 93 L 96 Oximetry 08/27/20 08/27/20 08/27/20 03:36 08:09 11:28 Temperature 36.6 C 36.7 C 36.6 C Pulse, 54 L 51 L 65 Peripheral Respiratory 16 16 16 Rate Blood Pressure 97/50 L 106/48 L 115/76 O2 Sat by Pulse 92 L 100 94 L Oximetry Gen: No acute distress, alert and oriented Lungs: Clear to auscultation bilaterally Heart: Regular rate and rhythm Abdomen: Soft, minimal appropriate tenderness, nondistended, bowel sounds positive Incisions: Healing well, no bleeding or discharge, no erythema present, skin glue covering incisions Extremities: Left lower leg with superficial firm veins. Patient also had firm knot in the deeper tissue in the central portion of the calf. No erythema or swelling noted. No significant calf tenderness. Right leg normal in appearance and no abnormalities. No calf tenderness or swelling noted. Laboratory Tests 08/26/20 08/26/20 08/26/20 Range/Units 06:52 06:52 07:10 WBC (3.98-10.04) K/mm3 RBC (3.98-5.22) M/mm3 Hgb (11.2-15.7) gm/dl Hct (34.1-44.9) % MCV (79.4-94.8) fl MCH (25.6-32.2) pg MCHC (32.2-35.5) g/dl RDW Std Deviation (36.4-46.3) fL Plt Count (182-369) K/mm3 MPV (9.4-12.3) fl Neut % (Auto) (34.0-71.1) % Lymph % (Auto) (19.3-51.7) % [place] % (Auto) (4.7-12.5) % Eos % (Auto) (0.7-5.8) Baso % (Auto) (0.1-1.2) % Neut # (Auto) (1.56-6.13) K/mm3 Lymph # (Auto) (1.18-3.74) K/mm3 [place] # (Auto) (0.24-0.36) K/mm3 Eos # (Auto) (0.04-0.36) K/mm3 Baso # (Auto) (0.01-0.08) K/mm3 Urine Color Yellow (Yellow) Urine Appearance Clear (Clear) Urine pH 5.5 (5.0-8.0) Ur Specific [place] > or = 1.030 (1.005-1.030) Urine Protein Negative (Negative) Urine Glucose (UA) Negative (Negative) Urine Ketones Negative (Negative) Urine Occult Blood 2+ H (Negative) Urine Nitrite Negative (Negative) Urine Bilirubin Negative (Negative) Urine Urobilinogen 0.2 (0.2-1.0) Ur Leukocyte Esterase Negative (Negative) Urine HCG, Qual Negative (NEGATIVE) Blood Type A POSITIVE Gel Antibody Screen Negative 08/27/20 Range/Units 05:50 WBC 11.16 H (3.98-10.04) K/mm3 RBC 3.19 L (3.98-5.22) M/mm3 Hgb 9.5 L D (11.2-15.7) gm/dl Hct 29.4 L (34.1-44.9) % MCV 92.2 (79.4-94.8) fl MCH 29.8 (25.6-32.2) pg MCHC 32.3 (32.2-35.5) g/dl RDW Std Deviation 47.2 H (36.4-46.3) fL Plt Count 202 (182-369) K/mm3 MPV 11.2 (9.4-12.3) fl Neut % (Auto) 74.9 H (34.0-71.1) % Lymph % (Auto) 16.5 L (19.3-51.7) % [place] % (Auto) 7.1 (4.7-12.5) % Eos % (Auto) 1.3 (0.7-5.8) Baso % (Auto) 0.2 (0.1-1.2) % Neut # (Auto) 8.37 H (1.56-6.13) K/mm3 Lymph # (Auto) 1.84 (1.18-3.74) K/mm3 [place] # (Auto) 0.79 H (0.24-0.36) K/mm3 Eos # (Auto) 0.14 (0.04-0.36) K/mm3 Baso # (Auto) 0.02 (0.01-0.08) K/mm3 Urine Color (Yellow) Urine Appearance (Clear) Urine pH (5.0-8.0) Ur Specific [place] (1.005-1.030) Urine Protein (Negative) Urine Glucose (UA) (Negative) Urine Ketones (Negative) Urine Occult Blood (Negative) Urine Nitrite (Negative) Urine Bilirubin (Negative) Urine Urobilinogen (0.2-1.0) Ur Leukocyte Esterase (Negative) Urine HCG, Qual (NEGATIVE) Blood Type Gel Antibody Screen Bilateral venous duplex Doppler ultrasound Impression: 1. Venous thrombosis within the left greater saphenous vein as well as additional superficial thrombophlebitis within the left calf. 2. No findings of deep venous thrombosis is seen within either the right or left lower extremities. Assesment/Plan: 44-year-old -0-3-5 female with abnormal uterine bleeding, menorrhagia, dysmenorrhea and female pelvic pain status post laparoscopic-assisted vaginal hysterectomy and bilateral salpingectomy, POD #1 with history of DVT x2 in pr evious pregnancies Patient diagnosed with superficial venous thrombosis in the greater saphenous vein and superficial thrombophlebitis within left calf on venous duplex Doppler ultrasound performed this morning. Patient had previously received Lovenox 40 mg subcutaneous approximately 2 hours prior to her surgery for DVT prophylaxis. Overall doing well Patient with newly diagnosed superficial venous thrombosis with history of DVT x2 in previous . Because of her high risk status we will switch patient to therapeutic anticoagulation with Lovenox 120 mg daily Discontinue SCDs at this time due to concern for causing movement of the superficial venous thrombosis Patient with drop in her hemoglobin from 13.5 down to 9.5 this morning. No evidence of intra-abdominal hemorrhage at this time. Suspect that the drop in hemoglobin is due to intraoperative blood loss. No evidence of ongoing bleeding at this time. Routine post op care Monitor vitals Patient is otherwise meeting postoperative milestones Anticipate discharge home tomorrow Zach Celestin MD 1:11 PM 08/27/2020
--- NOTE | 2020-08-28 07:17 | PCM.DCSUM1 ---
Discharge Summary - Hospital Course Brief History: Admitted for [facility]. History of blood clots. On lovenox and eventually with superficial thrombosis and transitioned to thereputic doses. Diagnosis: Stroke: No - Discharge Data Discharge Date: 08/28/20 Discharge Disposition: Home, Self-Care 01 Condition: Good - Referral to Home Health Primary Care Physician: Zach Celestin MD - Patient Summary/Data Operative Procedure(s) Performed: Laparoscopic-assisted vaginal hysterectomy with right salpingectomy - Patient Instructions Diet: Regular Diet as Tolerated Activity: Apply Ice, As Tolerated, No Lifting Over 20 Pounds Activity, Other: Nothing in the vagina for 6 weeks Driving: Do Not Drive (While taking narcotic medications are having significant pain.) Showering/Bathing: May Shower, No Tub Bathing/Swimming (For 6 weeks) Wound/Incision Care: Keep Operative Site/Wound Site Clean and Dry Notify Provider of: Fever, Increased Pain, Swelling and Redness, Drainage, Nausea and/or Vomiting Other/Special Instructions: Please contact your physician's office if you note any bleeding or pus coming from the abdominal incisions. Please contact your physician's office if you have heavy vaginal bleeding enough to soak a pad in less than an hour. - Discharge Plan *PRESCRIPTION DRUG MONITORING PROGRAM REVIEWED*: Yes *COPY OF PRESCRIPTION DRUG MONITORING REPORT IN PATIENT JOSE: No Prescriptions/Med Rec: Enoxaparin [Lovenox] 120 mg SUBCUT DAILY #14 syringe Acetaminophen/oxyCODONE [Percocet 325-5 MG] 1 - 2 tab PO Q6H PRN #30 tablet PRN Reason: Pain Home Medications: Home Meds Citalopram [Citalopram HBr] 20 mg PO DAILY 07/30/20 [History] Dicyclomine [Bentyl] 20 mg PO TID PRN #9 tab 07/30/20 [Rx] EPINEPHrine [Epipen] 1 dose IM ONETIME PRN 08/25/20 [History] Acetaminophen/oxyCODONE [Percocet 325-5 MG] 1 - 2 tab PO Q6H PRN #30 tablet 08/27/20 [Rx] Docusate Sodium [Colace] 100 mg PO BID cap 08/27/20 [Rx] Enoxaparin [Lovenox] 120 mg SUBCUT DAILY #14 syringe 08/27/20 [Rx] Ibuprofen [Motrin] 600 mg PO Q6H PRN tablet 08/27/20 [Rx] Patient Handouts: Laparoscopically Assisted Vaginal Hysterectomy, Care After, Deep Vein Thrombosis, Steps to Quit Smoking, Venous Thromboembolism Prevention Referrals: Zach Celestin MD [Primary Care Provider] - (Follow-up in 2 weeks for routine postoperative visit. 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 for ongoing management of superficial venous thrombosis of the saphenous vein in the left leg with history of DVT.) - Discharge Summary/Plan Comment DC Time >30 min.: No - Review of Systems General: Reports: No Symptoms HEENT: Reports: No Symptoms Pulmonary: Reports: No Symptoms Cardiovascular: Reports: No Symptoms Gastrointestinal: Reports: No Symptoms Genitourinary: Reports: No Symptoms Musculoskeletal: Reports: No Symptoms Skin: Reports: No Symptoms Neurological: Reports: No Symptoms Psychiatric: Reports: No Symptoms - Patient Data Vitals - Most Recent: Last Vital Signs Temp 36.6 C 08/28/20 04:02 Pulse 53 L 08/28/20 04:02 Resp 18 08/28/20 04:02 BP 105/54 L 08/28/20 04:02 Pulse Ox 92 L 08/28/20 04:02 Weight - Most Recent: 99.881 kg I&O - Last 24 hours: Intake & Output 08/27/20 08/28/20 08/28/20 22:59 06:59 14:59 Intake Total 400 0 Output Total 500 500 Balance -100 -500 Lab Results - Last 24 hrs: Laboratory Results - last 24 hr 08/28/20 Range/Units 04:42 WBC 5.29 (3.98-10.04) K/mm3 RBC 2.98 L (3.98-5.22) M/mm3 Hgb 8.5 L (11.2-15.7) gm/dl Hct 27.8 L (34.1-44.9) % MCV 93.3 (79.4-94.8) fl MCH 28.5 (25.6-32.2) pg MCHC 30.6 L (32.2-35.5) g/dl RDW Std Deviation 48.2 H (36.4-46.3) fL Plt Count 171 L (182-369) K/mm3 MPV 11.1 (9.4-12.3) fl Neut % (Auto) 41.5 (34.0-71.1) % Lymph % (Auto) 37.1 (19.3-51.7) % Brule % (Auto) 7.2 (4.7-12.5) % Eos % (Auto) 13.8 H (0.7-5.8) Baso % (Auto) 0.2 (0.1-1.2) % Neut # (Auto) 2.20 (1.56-6.13) K/mm3 Lymph # (Auto) 1.96 (1.18-3.74) K/mm3 Brule # (Auto) 0.38 H (0.24-0.36) K/mm3 Eos # (Auto) 0.73 H (0.04-0.36) K/mm3 Baso # (Auto) 0.01 (0.01-0.08) K/mm3 Med Orders - Current: Current Medications Citalopram Hydrobromide (Citalopram 20 Mg Tab) 20 mg PO DAILY [facility] Last Admin: 08/27/20 08:09 Dose: 20 mg Documented by: Docusate Sodium (Docusate Sodium 100 Mg Cap) 100 mg PO BID [facility] Last Admin: 08/27/20 20:34 Dose: 100 mg Documented by: Enoxaparin Sodium (Enoxaparin 120 Mg/0.8 Ml Syringe) 120 mg SUBCUT DAILY [facility] Hydromorphone HCl (Hydromorphone 1 Mg/Ml Syringe) 1 mg IVPUSH Q2H PRN PRN Reason: Breakthrough Pain Last Admin: 08/27/20 09:09 Dose: 1 mg Documented by: Ibuprofen (Ibuprofen 600 Mg Tab) 600 mg PO Q6H PRN PRN Reason: Pain (mild 1-3) Last Admin: 08/27/20 17:54 Dose: 600 mg Documented by: Ondansetron HCl (Ondansetron 4 Mg Tab.Dis) 4 mg PO Q6H PRN PRN Reason: Nausea/Vomiting Oxycodone/Acetaminophen (Acetaminophen/Oxycodone 325-5 Mg Tab) 1 tab PO Q6H PRN PRN Reason: Pain (moderate 4-6) Oxycodone/Acetaminophen (Acetaminophen/Oxycodone 325-5 Mg Tab) 2 tab PO Q6H PRN PRN Reason: Pain (severe 7-10) Last Admin: 08/27/20 20:36 Dose: 2 tab Documented by: Discontinued Medications Bupivacaine HCl (Bupivacaine 0.5% 30 Ml Sdv) Confirm Administered Dose 30 ml .ROUTE .STK-MED ONE Stop: 08/26/20 07:25 Last Admin: 08/26/20 09:11 Dose: 9 ml Documented by: Cefazolin Sodium (Cefazolin 1 Gm Vial) Confirm Administered Dose 2 gm .ROUTE .STK-MED ONE Stop: 08/26/20 08:59 Dexmedetomidine HCl (Dexmedetomidine 200 Mcg/2 Ml Sdv) Confirm Administered Dose 200 mcg .ROUTE .STK-MED ONE Stop: 08/26/20 10:01 Diphenhydramine HCl (Diphenhydramine 50 Mg/Ml Sdv) Confirm Administered Dose 50 mg .ROUTE .STK-MED ONE Stop: 08/26/20 08:56 Enoxaparin Sodium (Enoxaparin 40 Mg/0.4 Ml Syringe) 40 mg SUBCUT ONETIME [facility] Stop: 08/26/20 08:00 Last Admin: 08/26/20 07:04 Dose: 40 mg Documented by: Enoxaparin Sodium (Enoxaparin 40 Mg/0.4 Ml Syringe) 40 mg SUBCUT DAILY [facility] Last Admin: 08/27/20 08:10 Dose: 40 mg Documented by: Enoxaparin Sodium (Enoxaparin 80 Mg/0.8 Ml Syringe) 80 mg SUBCUT ONETIME ONE Stop: 08/27/20 09:01 Last Admin: 08/27/20 09:10 Dose: 80 mg Documented by: Fentanyl (Fentanyl 250 Mcg/5 Ml Sdv) Confirm Administered Dose 250 mcg .ROUTE .STK-MED ONE Stop: 08/26/20 07:20 Fentanyl (Fentanyl 100 Mcg/2 Ml Sdv) 100 mcg IVPUSH Q5M PRN PRN Reason: Pain Stop: 08/26/20 12:00 Glycopyrrolate (Glycopyrrolate 0.2 Mg/Ml 2 Ml Syringe) Confirm Administered Dose 0.4 mg .ROUTE .STK-MED ONE Stop: 08/26/20 09:51 Glycopyrrolate (Glycopyrrolate 0.2 Mg/Ml 2 Ml Syringe) Confirm Administered Dose 0.4 mg .ROUTE .STK-MED ONE Stop: 08/26/20 10:12 Glycopyrrolate (Glycopyrrolate 0.2 Mg/Ml 2 Ml Syringe) Confirm Administered Dose 0.4 mg .ROUTE .STK-MED ONE Stop: 08/26/20 10:37 Hydromorphone HCl (Hydromorphone 0.5 Mg/0.5 Ml Syringe) Confirm Administered Dose 0.5 mg .ROUTE .STK-MED ONE Stop: 08/26/20 07:19 Hydromorphone HCl (Hydromorphone 0.5 Mg/0.5 Ml Syringe) 0.5 mg IVPUSH Q10M PRN PRN Reason: Pain (severe 7-10) Stop: 08/26/20 12:00 Last Admin: 08/26/20 10:51 Dose: 0.5 mg Documented by: Hydromorphone HCl (Hydromorphone 0.5 Mg/0.5 Ml Syringe) Confirm Administered Dose 0.5 mg .ROUTE .STK-MED ONE Stop: 08/26/20 10:20 Lactated Ringer's (Ringers, Lactated) 1,000 mls @ 125 mls/hr IV ASDIRECTED JILLIAN Stop: 08/26/20 23:00 Last Admin: 08/26/20 07:15 Dose: 125 mls/hr Documented by: Lidocaine HCl (Xylocaine-Mpf 1%) Confirm Administered Dose 4 mls @ as directed .ROUTE .STK-MED ONE Stop: 08/26/20 07:20 Lactated Ringer's (Ringers, Lactated) Confirm Administered Dose 1,000 mls @ as directed .ROUTE .STK-MED ONE Stop: 08/26/20 10:14 Lactated Ringer's (Ringers, Lactated) Confirm Administered Dose 1,000 mls @ as directed .ROUTE .STK-MED ONE Stop: 08/26/20 10:15 Ibuprofen (Ibuprofen 400 Mg Tab) 600 mg PO Q6H PRN PRN Reason: Pain (mild 1-3) Last Admin: 08/27/20 01:42 Dose: 600 mg Documented by: Lidocaine/Epinephrine (Lidocaine 1% With Epinephrine 1:100,000 10 Ml Mdv) Confirm Administered Dose 10 ml .ROUTE .STK-MED ONE Stop: 08/26/20 07:25 Last Admin: 08/26/20 09:40 Dose: 5 ml Documented by: Lidocaine/Sodium Bicarbonate (Lidocaine 1%/Sod Bicarbonate In Ns 8.4% 1 Ml Syringe) 0.25 ml IDERM ONETIME PRN PRN Reason: Prior to IV Start Stop: 08/26/20 18:00 Midazolam HCl (Midazolam 1 Mg/Ml 2 Ml Sdv) Confirm Administered Dose 4 mg .ROUTE .STK-MED ONE Stop: 08/26/20 07:20 Miscellaneous Medication (Phenylephrine Hcl In 0.9% Nacl 1 Mg/10 Ml Syringe) Confirm Administered Dose 1 mg .ROUTE .STK-MED ONE Stop: 08/26/20 09:38 Neostigmine Methylsulfate (Neostigmine Methylsulfate 5 Mg/5 Ml Syringe) Confirm Administered Dose 5 mg .ROUTE .STK-MED ONE Stop: 08/26/20 10:12 Ondansetron HCl (Ondansetron 4 Mg/2 Ml Sdv) Confirm Administered Dose 8 mg .ROUTE .STK-MED ONE Stop: 08/26/20 07:20 Propofol (Propofol 200 Mg/20 Ml Sdv) Confirm Administered Dose 200 mg .ROUTE .ST K-MED ONE Stop: 08/26/20 07:19 Sodium Chloride (Sodium Chloride 0.9% 10 Ml Syringe) 10 ml FLUSH ASDIRECTED PRN PRN Reason: Keep Vein Open Stop: 08/26/20 18:00 Sodium Chloride (Sodium Chloride 0.9% 50 Ml Sdv) Confirm Administered Dose 50 ml .ROUTE .STK-MED ONE Stop: 08/26/20 07:25 Last Admin: 08/26/20 09:40 Dose: 15 ml Documented by: Vecuronium [place] (Vecuronium 10 Mg Vial) Confirm Administered Dose 10 mg .ROUTE .STK-MED ONE Stop: 08/26/20 07:20 - Exam General: Reports: Alert, Oriented HEENT: Reports: Pupils Equal, Pupils Reactive, EOMI, Mucous Membr. Moist/[place] Neck: Reports: Supple Lungs: Reports: Clear to Auscultation, Normal Respiratory Effort Cardiovascular: Reports: Regular Rate, Regular Rhythm GI/Abdominal Exam: Normal Bowel Sounds, Soft, Non-Tender, No Organomegaly, No Distention, No Abnormal Bruit, No Mass, Pelvis Stable Back Exam: Reports: Normal Inspection, Full Range of Motion Extremities: Normal Inspection, Normal Range of Motion, Non-Tender, No Pedal Edema, Normal Capillary Refill Skin: Reports: Warm, Dry, Intact Wound/Incisions: Reports: Healing Well Neurological: Reports: No New Focal Deficit Psy/Mental Status: Reports: Alert, Normal Affect, Normal Mood
[2020-08-28] MEDS: Docusate Sodium 100 MG Cap PO SCH (08:28)
[2020-08-28] MEDS: Citalopram 20 MG Tab PO SCH (08:28)
[2020-08-28] MEDS: Ibuprofen 600 MG Tab PO PRN (08:32)
[2020-08-28] MEDS ORDERED: Enoxaparin 120 MG/0.8 ML Syringe SUBCUT SCH (09:00)
[2020-08-28 12:59] VITALS: BP 118/82; PULSE 67
== END 2020-08-28 12:12 | disposition home or self-care (01) ==
LOC: JD.SDS 06:47 → JD.MS 10:26 → JD.SDS 08-27 08:44 → JD.MS 08-27 08:44
PROVIDERS: ADMIT Obstetrics & Gynecology; ATTEND Obstetrics & Gynecology
DX: N80.0 Endometriosis of uterus (principal); N83.11 Corpus luteum cyst of right ovary; N73.6 Female pelvic peritoneal adhesions (postinfective); N93.9 Abnormal uterine and vaginal bleeding, unspecified; N92.0 Excessive and frequent menstruation with regular cycle; N94.6 Dysmenorrhea, unspecified; I82.812 Embolism and thrombosis of superficial veins of left lower extremity; E66.9 Obesity, unspecified; Z68.30 Body mass index [BMI] 30.0-30.9, adult; F17.210 Nicotine dependence, cigarettes, uncomplicated; Z88.8 Allergy status to other drugs, medicaments and biological substances; Z91.030 Bee allergy status; Z79.899 Other long term (current) drug therapy; Z98.890 Other specified postprocedural states
CPT/HCPCS: 36415; 58552; 81003; 81025; 85025; 86850; 86900; 86901; 93970; 96372; A9270; G0378; J0330; J0690; J1170; J1200; J1650; J2250; J2370; J2405; J2704; J2710; J3010; J3490; J7120; 00944

== ENCOUNTER 2020-09-02 21:16 | Emergency (ER) | payer MEDICAID ==
[2020-09-02 21:35] VITALS: BP 109/64; PULSE 92
--- NOTE | 2020-09-02 22:02 | EDM.PDOC ---
ED HPI GENERAL MEDICAL PROBLEM - General Chief Complaint: Skin Complaint Stated Complaint: INFECTION POST OP Time Seen by Provider: 09/02/20 21:36 Source of Information: Reports: Patient, Family () History Limitations: Reports: No Limitations - History of Present Illness INITIAL COMMENTS - FREE TEXT/NARRATIVE: Mrs. Rowland is a pleasant 44-year-old woman who now presents the ED with a concern that she may have a postoperative infection. She underwent a laparoscopic hysterectomy and right salpingectomy 1 week ago today, on 08/26/2020. She states that she was doing well until yesterday, when she developed some chills with a fever, and diaphoresis. Today she noticed that there was erythema around each of her laparoscopy wounds, and she felt, some drainage from the periumbilical laparoscopic wound. She states that the laparoscopic wounds are sore, and itchy. She states that she took her prescribed Percocet. The patient did not contact her Parachute [employer] Supervisor about this issue. The patient is on Lovenox for a DVT. Here in the ED, the patient is found to be hemodynamically stable, afebrile, saturating 97% on room air. Other than her abdominal issues, the patient denies having a recent fever, chills, sore throat, ear pain, nasal or sinus congestion, cough, dyspnea, chest pain, palpitations, nausea, vomiting, constipation, diarrhea, abdominal pain, u rinary symptoms, recent weight gain or weight loss, recent bloody bowel movements or black bowel movements, recent joint aches, headaches, or rashes. The patient's PCP is Susan Mejia NP. Her Parachute Manufacturing Supervisor is Dr. Zach Celestin. - Related Data Allergies Allergy/AdvReac Type Severity Reaction Status Date / Time venom-honey bee Allergy Severe Anaphylactic Verified 09/02/20 21:28 [bee venom (honey bee)] Shock hydromorphone [From Dilaudid] Allergy Other Verified 09/02/20 21:29 Home Meds: Home Meds Citalopram [Citalopram HBr] 20 mg PO DAILY 07/30/20 [History] Dicyclomine [Bentyl] 20 mg PO TID PRN #9 tab 07/30/20 [Rx] EPINEPHrine [Epipen] 1 dose IM ONETIME PRN 08/25/20 [History] Acetaminophen/oxyCODONE [Percocet 325-5 MG] 1 - 2 tab PO Q6H PRN #30 tablet 08/27/20 [Rx] Docusate Sodium [Colace] 100 mg PO BID cap 08/27/20 [Rx] Enoxaparin [Lovenox] 120 mg SUBCUT DAILY #14 syringe 08/27/20 [Rx] Ibuprofen [Motrin] 600 mg PO Q6H PRN tablet 08/27/20 [Rx] Past Medical History HEENT History: Reports: Impaired Vision (wears contacts) Cardiovascular History: Reports: Blood Clots/VTE/DVT (DVT) IT 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: Ectopic (2016, s/p left salpingectomy), Spontaneous : 8 Para: 4 Musculoskeletal History: Reports: Fracture (right hand), Osteoarthritis Psychiatric History: Reports: Anxiety, Depression, Suicide Attempt Endocrine/Metabolic History: Reports: Obesity/BMI 30+ Hematologic History: Reports: Other (See Below) (Coagulopathy) - Past Surgical History HEENT Surgical History: Reports: Adenoidectomy, Tonsillectomy GI Surgical History: Reports: Appendectomy (1993) Female Surgical History: Reports: Section (x 1, 1982), D&C (x 3), Hysterectomy (08/26/2020), Other (See Below) (Left salpingectomy September 2016, right salpingectomy 08/26/2020) Musculoskeletal Surgical History: Reports: ORIF (right hand, with subsequent hardware removal) Social & Family History - Tobacco Use Tobacco Use Status *Q: Current Every Day Tobacco User Years of Tobacco use: 27 Packs/Tins Daily: 0.5 - Caffeine Use Caffeine Use: Reports: Coffee, Energy Drinks - Alcohol Use Date/Time of Last Drink Comment: Previous excessive use Alcohol Use in Last Twelve Months: Yes Alcohol Use Frequency: Rarely - Recreational Drug Use Recreational Drug Use: Yes Drug Use in Last 12 Months: No Recreational Drug Type: Reports: Methamphetamine (last smoked 2003) - Living Situation & Occupation Living situation: Reports: , with Spouse, with Family (3 kids) Occupation: Employed ED ROS GENERAL - Review of Systems Review Of Systems: Comprehensive ROS is negative, except as noted in HPI. ED EXAM, GI/ABD - Physical Exam Exam: See Below Exam Limited By: No Limitations General Appearance: Alert, WD/WN, No Apparent Distress Eyes: Bilateral: Normal Appearance, EOMI Ears: Normal External Exam, Hearing Grossly Normal Nose: Normal Inspection Throat/Mouth: Normal Inspection, Normal Lips, Normal Voice, No Airway Compromise Head: Atraumatic, Normocephalic Neck: Normal Inspection, Full Range of Motion Respiratory/Chest: No Respiratory Distress, Lungs Clear, Normal Breath Sounds, No Accessory Muscle Use Cardiovascular: Normal Peripheral Pulses, Regular Rate, Rhythm, No Edema, No Gallop, No JVD, No Murmur, No Rub GI/Abdominal Exam: Normal Bowel Sounds, Soft, No Organomegaly, No Distention, No Abnormal Bruit, No Mass, Tender (About the periumbilical, left lower quadrant, and right lower quadrant laparoscopic sites. The left and right lower quadrant laparoscopic sites have surrounding erythema. All wounds still have Dermabond, with no drainage from any of them.) Back Exam: Normal Inspection, Full Range of Motion, NT Extremities: Normal Inspection, Normal Range of Motion, No Pedal Edema, Normal Capillary Refill Neurological: Alert, Oriented, Normal Cognition, No Motor/Sensory Deficits Psychiatric: Normal Affect Skin Exam: Warm, Dry, Intact, Normal Color, No Rash Course - Vital Signs Last Recorded V/S: Last Vital Signs Temp 36.3 C 09/02/20 21:31 Pulse 92 09/02/20 21:31 Resp 17 09/02/20 21:31 BP 109/64 09/02/20 21:31 Pulse Ox 97 09/02/20 21:31 - Orders/Labs/Meds Labs: Laboratory Tests 09/02/20 09/02/20 Range/Units 22:12 22:12 WBC 11.34 H (3.98-10.04) K/mm3 RBC 3.81 L (3.98-5.22) M/mm3 Hgb 11.0 L D (11.2-15.7) gm/dl Hct 34.2 (34.1-44.9) % MCV 89.8 D (79.4-94.8) fl MCH 28.9 (25.6-32.2) pg MCHC 32.2 (32.2-35.5) g/dl RDW Std Deviation 46.5 H (36.4-46.3) fL Plt Count 290 D (182-369) K/mm3 MPV 10.3 (9.4-12.3) fl Neutrophils % (Manual) 71 H (40-60) % Band Neutrophils % 0 (0-10) % Lymphocytes % (Manual) 17 L (20-40) % Atypical Lymphs % 1 % Monocytes % (Manual) 6 (2-10) % Eosinophils % (Manual) 5 (0.7-5.8) % Basophils % (Manual) 0 L (0.1-1.2) Nucleated RBCs 1.0 % Platelet Estimate Adequate RBC Morph Comment Normal Sodium 138 (136-145) mEq/L Potassium 3.9 (3.5-5.1) mEq/L Chloride 101 (98-107) mEq/L Carbon Dioxide 23 (21-32) mEq/L Anion Gap 17.9 H (5-15) BUN 15 (7-18) mg/dL Creatinine 0.8 (0.55-1.02) mg/dL Est Cr Clr Drug Dosing 92.81 mL/min Estimated GFR (MDRD) > 60 (>60) mL/min BUN/Creatinine Ratio 18.8 H (14-18) Glucose 121 H (74-106) mg/dL Calcium 8.6 (8.5-10.1) mg/dL Total Bilirubin 0.4 (0.2-1.0) mg/dL AST 16 (15-37) U/L ALT 54 (14-59) U/L Alkaline Phosphatase 93 (46-116) U/L Total Protein 7.1 (6.4-8.2) g/dl Albumin 3.1 L (3.4-5.0) g/dl Globulin 4.0 gm/dL Albumin/Globulin Ratio 0.8 L (1-2) Meds: Medications Discontinued Medications Generic Name Dose Route Start Last Admin Trade Name Freq PRN Reason Stop Dose Admin Diphenhydramine HCl 50 mg 09/02/20 23:35 Diphenhydramine 50 Mg Cap PO 09/02/20 23:36 ONETIME ONE - Re-Assessments/Exams Free Text/Narrative Re-Assessment/Exam: 09/02/20 21:58 As above, the patient underwent a laparoscopic hysterectomy with right salpingectomy 1 week ago today, and was doing well until yesterday, when she felt some chills and diaphoresis, and then found erythema around 2 of the 3 laparoscopic sites, with increased tenderness particularly around the periumbilical laparoscopic site. The patient thought that there might have been some drainage from the umbilical wound, however, all 3 wounds still have Dermabond, and I see no fluid drainage from any of them. The patient's abdomen is soft with normoactive bowel sounds. She is afebrile. I have ordered a CBC and CMP, with the intention of contacting Dr. Celestin once I have those results. 09/02/20 23:24 The patient's CBC is remarkable for mild leukocytosis of 11.34, but with 0% bandemia, and a Hgb slightly depressed at 11.0, but with a Hct normal at 34.2, and the remainder of her CBC being unremarkable. The patient's CMP is remarkable for mild hyperglycemia of 121, with the remainder of her CMP being unremarkable. 09/02/20 23:[address] Lake at 23:26. He suspects that the patient is suffering from an allergic reaction to the Dermabond, since there is erythema at each of the sites, not just one. He is therefore recommending that the patient attempt to wash the remaining Dermabond off when she showers next, and start taking an antihistamine. Since Dr. Celestin is out of town, she can follow-up with Dr. Lake as early as tomorrow. For tonight's purposes, the patient will be given Benadryl, however, going forward, a nonsedating antihistamine, such as cetirizine or fexofenadine is preferred. We do not have either of those on formulary, but the patient can get them [id number]. Departure - Departure Time of Disposition: 23:36 Disposition: Home, Self-Care 01 Condition: Good Clinical Impression: Reaction of skin due to suture material - Discharge Information *PRESCRIPTION DRUG MONITORING PROGRAM REVIEWED*: Not Applicable *COPY OF PRESCRIPTION DRUG MONITORING REPORT IN PATIENT JOSE: Not Applicable Instructions: Rash, Adult Referrals: Susan Mejia NP [Nurse Practitioner] - Zach Celestin MD [Physician] - Delano Lake MD [Physician] - Forms: ED Department Discharge Additional Instructions: You were seen in the emergency room for itchy discomfort and redness to each of the laparoscopy sites on your abdomen. Work-up in the ER included some blood work, which does not indicate that you have an infection. Your case was discussed with the manager of corporate communications Dr. Delano Lake, who believes that you are suffering from a local allergic reaction from either the sutures or the Dermabond. We recommend that you attempt to pick off as much Dermabond as possible when you next shower. You have been started on the antihistamine diphenhydramine (Benadryl), however, going forward, we recommend that you purchase either cetirizine (Zyrtec) or fexofenadine (Kathleen), which are both available [id number], and take as directed. You may follow-up with Dr. Lake as early as tomorrow. Please call his office to make an appointment, and make sure that the receptionist airline lounge understands that you are following up from the ER. If any other problems, please do not hesitate to return to the ER. Sepsis Event Note (ED) - Evaluation Sepsis Screening Result: No Definite Risk - Focused Exam Vital Signs: Vital Signs Temp Pulse Resp BP Pulse Ox 09/02/20 21:31 36.3 C 92 17 109/64 97
[2020-09-02] MEDS ORDERED: diphenhydrAMINE 50 MG Cap PO ONE (23:35)
== END 2020-09-02 23:51 | disposition home or self-care (01) ==
LOC: JD.ED 21:16
DX: T78.49XA Other allergy, initial encounter (principal); R50.9 Fever, unspecified; R61 Generalized hyperhidrosis
CPT/HCPCS: 36415; 80053; 85007; 85027; 99283

== ENCOUNTER 2021-01-12 17:50 | Emergency (ER) | payer MEDICAID ==
[2021-01-12] MEDS ORDERED: Ondansetron 4 MG/2 ML SDV IVPUSH ONE (18:39)
[2021-01-12] MEDS ORDERED: fentaNYL 100 MCG/2 ML SDV IVPUSH ONE (18:39)
--- NOTE | 2021-01-12 18:46 | EDM.PDOC ---
ED HPI GENERAL MEDICAL PROBLEM - General Chief Complaint: Abdominal Pain Stated Complaint: [facility] Time Seen by Provider: 01/12/21 18:32 Source of Information: Reports: Patient, RN Notes Reviewed History Limitations: Reports: No Limitations - History of Present Illness INITIAL COMMENTS - FREE TEXT/NARRATIVE: Patient is a 45-year-old female who presents to the ER by [facility] for the evaluation of her right upper quadrant abdominal pain. Patient did get some fentanyl in route to the ER for pain management. Notes that this started around 8 AM this morning. She said that sharp in nature, and has not relented since it stopped. She notes that it seems to worsen when she takes a deep breath in, or coughs. States she does have a history of a PE, and thinks that it feels somewhat similar. She does have some mild shortness of breath with this because the pain takes her breath away. She has had no fevers or chills, cough, or any severe nausea/vomiting/diarrhea. Patient states she still retains her gallbladder, and appendix. Right Upper Quadrant Pain Score (Numeric/FACES): 6 - Related Data Allergies Allergy/AdvReac Type Severity Reaction Status Date / Time venom-honey bee Allergy Severe Anaphylactic Verified 09/02/20 21:28 [bee venom (honey bee)] Shock hydromorphone [From Dilaudid] Allergy Other Verified 09/02/20 21:29 Home Meds: Home Meds Citalopram [Citalopram HBr] 20 mg PO DAILY 07/30/20 [History] Dicyclomine [Bentyl] 20 mg PO TID PRN #9 tab 07/30/20 [Rx] EPINEPHrine [Epipen] 1 dose IM ONETIME PRN 08/25/20 [History] Acetaminophen/oxyCODONE [Percocet 325-5 MG] 1 - 2 tab PO Q6H PRN #30 tablet 08/27/20 [Rx] Docusate Sodium [Colace] 100 mg PO BID cap 08/27/20 [Rx] Enoxaparin [Lovenox] 120 mg SUBCUT DAILY #14 syringe 08/27/20 [Rx] Ibuprofen [Motrin] 600 mg PO Q6H PRN tablet 08/27/20 [Rx] Past Medical History HEENT History: Reports: Impaired Vision Other HEENT History: wears contacts Cardiovascular History: Reports: Blood Clots/VTE/DVT Respiratory History: Reports: Other (See Below) Other Respiratory History: acute URI, chest congestion Gastrointestinal History: Reports: Other (See Below) Other Gastrointestinal History: abdominal pain, gastritis Genitourinary History: Reports: None [employer] History: Reports: Ectopic , Spontaneous Musculoskeletal History: Reports: Fracture, Osteoarthritis Other Musculoskeletal History: body aches, back pain Neurological History: Reports: Other (See Below) Other Neuro History: occipital neuralgia, shakiness, hand tremor Psychiatric History: Reports: Anxiety, Depression, Suicide Attempt Other Psychiatric History: ETOH abuse Endocrine/Metabolic History: Reports: Obesity/BMI 30+ Hematologic History: Reports: Other (See Below) Other Hematologic History: blood clotting disorder Oncologic (Cancer) History: Reports: None Dermatologic History: Reports: Other (See Below) Other Dermatologic History: groin cyst, urticaria, skin inflammation - Infectious Disease History Infectious Disease History: Reports: None - Past Surgical History Head Surgeries/Procedures: Reports: None HEENT Surgical History: Reports: Adenoidectomy, Tonsillectomy Cardiovascular Surgical History: Reports: None Respiratory Surgical History: Reports: None GI Surgical History: Reports: Appendectomy Female Surgical History: Reports: Section, D&C, Hysterectomy, Other (See Below) Other Female Surgeries/Procedures: salpingectomy; hysterectomy 08/26/20 Endocrine Surgical History: Reports: None Neurological Surgical History: Reports: None Musculoskeletal Surgical History: Reports: ORIF Oncologic Surgical History: Reports: None Social & Family History - Family History Family Medical History: No Pertinent Family History Cardiac: Reports: VT Respiratory: Reports: COPD Neurological: Reports: CVA Endocrine/Metabolic: Reports: Diabetes, type II - Tobacco Use Tobacco Use Status *Q: Never Tobacco User - Caffeine Use Caffeine Use: Reports: Coffee, Energy Drinks - Recreational Drug Use Recreational Drug Use: No - Living Situation & Occupation Living situation: Reports: , with Spouse, with Family (3 kids) Occupation: Employed ED ROS GENERAL - Review of Systems Review Of Systems: Comprehensive ROS is negative, except as noted in HPI. ED EXAM, GI/ABD - Physical Exam Exam: See Below Exam Limited By: No Limitations General Appearance: Alert, WD/WN, No Apparent Distress Respiratory/Chest: No Respiratory Distress, Lungs Clear, Normal Breath Sounds, No Accessory Muscle Use, Chest Non-Tender Cardiovascular: Normal Peripheral Pulses, Regular Rate, Rhythm, No Edema GI/Abdominal Exam: Normal Bowel Sounds, Soft, No Distention, No Mass, Guarding (of RUQ), Tender (RUQ, Allison sign positive) Extremities: Normal Inspection, Normal Capillary Refill Neurological: Alert, Oriented, Normal Cognition, No Motor/Sensory Deficits Psychiatric: Normal Affect, Normal Mood Skin Exam: Warm, Dry, Intact, Normal Color, No Rash Course - Vital Signs Last Recorded V/S: Last Vital Signs Temp 98.1 F 01/12/21 17:54 Pulse 85 01/12/21 17:54 Resp 18 01/12/21 17:54 BP 103/71 01/12/21 17:54 Pulse Ox 99 01/12/21 17:54 - Orders/Labs/Meds Orders: Active Orders 24 hr Category Date Time Status Sodium Chloride 0.9% [Normal Saline] 100 ml Med 01/12/21 19:45 Ordered IV ASDIRECTED Sodium Chloride 0.9% [Saline Flush] Med 01/12/21 19:40 Ordered 10 ml FLUSH ONETIME PRN Medication Orders Sodium Chloride (Normal Saline) 100 mls @ 60 mls/hr IV ASDIRECTED JILLIAN Last Admin: 01/12/21 20:01 Dose: 60 mls/hr Documented by: [id number] Sodium Chloride (Sodium Chloride 0.9% 10 Ml Syringe) 10 ml FLUSH ONETIME PRN PRN Reason: Keep Vein Open Last Admin: 01/12/21 20:01 Dose: 10 ml Documented by: [id number] Labs: Laboratory Tests 01/12/21 01/12/21 01/12/21 Range/Units 18:30 18:30 18:30 WBC 7.57 (3.98-10.04) K/mm3 RBC 4.22 (3.98-5.22) M/mm3 Hgb 12.2 (11.2-15.7) gm/dl Hct 37.6 (34.1-44.9) % MCV 89.1 (79.4-94.8) fl MCH 28.9 (25.6-32.2) pg MCHC 32.4 (32.2-35.5) g/dl RDW Std Deviation 48.2 H (36.4-46.3) fL Plt Count 264 (182-369) K/mm3 MPV 10.3 (9.4-12.3) fl Neut % (Auto) 59.7 (34.0-71.1) % Lymph % (Auto) 30.0 (19.3-51.7) % [place] % (Auto) 7.1 (4.7-12.5) % Eos % (Auto) 2.4 (0.7-5.8) Baso % (Auto) 0.5 (0.1-1.2) % Neut # (Auto) 4.52 (1.56-6.13) K/mm3 Lymph # (Auto) 2.27 (1.18-3.74) K/mm3 [place] # (Auto) 0.54 H (0.24-0.36) K/mm3 Eos # (Auto) 0.18 (0.04-0.36) K/mm3 Baso # (Auto) 0.04 (0.01-0.08) K/mm3 D-Dimer, Quantitative 1.25 H (0.19-0.50) mg/L Sodium 148 H D (136-145) mEq/L Potassium 3.4 L (3.5-5.1) mEq/L Chloride 111 H (98-107) mEq/L Carbon Dioxide 23 (21-32) mEq/L Anion Gap 17.4 H (5-15) BUN 14 (7-18) mg/dL Creatinine 0.7 (0.55-1.02) mg/dL Est Cr Clr Drug Dosing 101.30 mL/min Estimated GFR (MDRD) > 60 (>60) mL/min BUN/Creatinine Ratio 20.0 H (14-18) Glucose 104 H (70-99) mg/dL Calcium 8.4 L (8.5-10.1) mg/dL Total Bilirubin 0.2 (0.2-1.0) mg/dL GGT (5-55) U/L AST 6 L (15-37) U/L ALT 19 (14-59) U/L Alkaline Phosphatase 83 (46-116) U/L C-Reactive Protein (<1.0) mg/dL Total Protein 6.7 (6.4-8.2) g/dl Albumin 3.7 (3.4-5.0) g/dl Globulin 3.0 gm/dL Albumin/Globulin Ratio 1.2 (1-2) Urine Color (Yellow) Urine Appearance (Clear) Urine pH (5.0-8.0) Ur Specific [place] (1.005-1.030) Urine Protein (Negative) Urine Glucose (UA) (Negative) Urine Ketones (Negative) Urine Occult Blood (Negative) Urine Nitrite (Negative) Urine Bilirubin (Negative) Urine Urobilinogen (0.2-1.0) Ur Leukocyte Esterase (Negative) Urine RBC (0-5) /hpf Urine WBC (0-5) /hpf Ur Epithelial Cells (0-5) /hpf Calcium Oxalate Crystal (NONE) Urine Bacteria (FEW) /hpf Urine Mucus (FEW) /hpf 01/12/21 01/12/21 Range/Units 18:37 21:13 WBC (3.98-10.04) K/mm3 RBC (3.98-5.22) M/mm3 Hgb (11.2-15.7) gm/dl Hct (34.1-44.9) % MCV (79.4-94.8) fl MCH (25.6-32.2) pg MCHC (32.2-35.5) g/dl RDW Std Deviation (36.4-46.3) fL Plt Count (182-369) K/mm3 MPV (9.4-12.3) fl Neut % (Auto) (34.0-71.1) % Lymph % (Auto) (19.3-51.7) % [place] % (Auto) (4.7-12.5) % Eos % (Auto) (0.7-5.8) Baso % (Auto) (0.1-1.2) % Neut # (Auto) (1.56-6.13) K/mm3 Lymph # (Auto) (1.18-3.74) K/mm3 [place] # (Auto) (0.24-0.36) K/mm3 Eos # (Auto) (0.04-0.36) K/mm3 Baso # (Auto) (0.01-0.08) K/mm3 D-Dimer, Quantitative (0.19-0.50) mg/L Sodium (136-145) mEq/L Potassium (3.5-5.1) mEq/L Chloride (98-107) mEq/L Carbon Dioxide (21-32) mEq/L Anion Gap (5-15) BUN (7-18) mg/dL Creatinine (0.55-1.02) mg/dL Est Cr Clr Drug Dosing mL/min Estimated GFR (MDRD) (>60) mL/min BUN/Creatinine Ratio (14-18) Glucose (70-99) mg/dL Calcium (8.5-10.1) mg/dL Total Bilirubin (0.2-1.0) mg/dL GGT 10 (5-55) U/L AST (15-37) U/L ALT (14-59) U/L Alkaline Phosphatase (46-116) U/L C-Reactive Protein <0.2 (<1.0) mg/dL Total Protein (6.4-8.2) g/dl Albumin (3.4-5.0) g/dl Globulin gm/dL Albumin/Globulin Ratio (1-2) Urine Color Yellow (Yellow) Urine Appearance Clear (Clear) Urine pH 5.5 (5.0-8.0) Ur Specific [place] 1.015 (1.005-1.030) Urine Protein Negative (Negative) Urine Glucose (UA) Negative (Negative) Urine Ketones Negative (Negative) Urine Occult Blood Negative (Negative) Urine Nitrite Negative (Negative) Urine Bilirubin Negative (Negative) Urine Urobilinogen 0.2 (0.2-1.0) Ur Leukocyte Esterase Negative (Negative) Urine RBC 0-5 (0-5) /hpf Urine WBC 0-5 (0-5) /hpf Ur Epithelial Cells 0-5 (0-5) /hpf Calcium Oxalate Crystal Few H (NONE) Urine Bacteria Occasional (FEW) /hpf Urine Mucus Moderate H (FEW) /hpf Meds: Medications Generic Name Dose Route Start Last Admin Trade Name Freq PRN Reason Stop Dose Admin Sodium Chloride 100 mls @ 60 mls/hr 01/12/21 19:45 01/12/21 20:01 Normal Saline IV 60 mls/hr ASDIRECTED JILLIAN Administration Sodium Chloride 10 ml 01/12/21 19:40 01/12/21 20:01 Sodium Chloride 0.9% 10 Ml Syringe FLUSH 10 ml ONETIME PRN Administration Keep Vein Open Discontinued Medications Generic Name Dose Route Start Last Admin Trade Name Freq PRN Reason Stop Dose Admin Fentanyl 50 mcg 01/12/21 18:39 01/12/21 18:49 Fentanyl 100 Mcg/2 Ml Sdv IVPUSH 01/12/21 18:40 50 mcg ONETIME ONE Administration Iopamidol 100 ml 01/12/21 19:40 01/12/21 20:01 Iopamidol 755 Mg/Ml 100 Ml Bottle IVPUSH 01/12/21 19:41 100 ml ONETIME ONE Administration Magnesium Citrate 296 ml 01/12/21 20:46 Magnesium Citrate Solution 296 Ml Bottle PO 01/12/21 20:47 ONETIME ONE Ondansetron HCl 4 mg 01/12/21 18:39 01/12/21 18:49 Ondansetron 4 Mg/2 Ml Sdv IVPUSH 01/12/21 18:40 4 mg ONETIME ONE Administration Oxycodone/Acetaminophen 2 tab 01/12/21 19:41 01/12/21 20:34 Acetaminophen/Oxycodone 325-5 Mg Tab PO 01/12/21 19:42 2 tab ONETIME ONE Administration - Re-Assessments/Exams Free Text/Narrative Re-Assessment/Exam: 01/12/21 18:45 Patient presents to the ER for her right upper quadrant abdominal pain. We will get a gallbladder ultrasound, give her some more pain meds, labs were obtained at time of triage, and a chest x-ray as well, labs are still pending, but the chest x-ray reviewed by myself demonstrate no sign of acute infiltrates at this time. 01/12/21 19:12 Laboratory evaluation has come back, CBC is essentially unremarkable, D-dimer did come back elevated at 1.25. Patient's metabolic panel did demonstrate a slightly elevated sodium at 148, the potassium was mildly low at 3.1. We will go ahead and order a CTA of the patient's chest for evaluation of a pulmonary embolus at this time. 01/12/21 19:41 The patient's ultrasound was negative for any gallstones or gallbladder etiology. Patient was still having quite a bit of pain so we will go ahead and order 2 tablets of Percocet 5/325 for pain management. CTA is still pending at this time. 01/12/21 20:37 CTA of the chest has been read as negative for pulmonary embolism. Abdomen/pelvis CT done with IV contrast, demonstrates no acute findings as well. I did review the CT of her abdomen pelvis myself, and there is quite a bit of stool in the right side of the colon, and within the hepatic flexure, due to the elevated D-dimer however I will offer to do ultrasound of her arms and legs for further evaluation of possible blood clot, but D-dimer could also be elevated because she has some bruising somewhere. Will give her a bottle of magnesium citrate, to hopefully facilitate a bowel movement and figure out discharge plan. 01/12/21 21:02 The patient has declined the offer to do ultrasounds of her bilateral upper and lower extremities for further investigation of the elevated D-dimer. Urinalysis not put in initially on standing orders, so 1 has been ordered, we will await urinalysis to see if there is any sort of blood within the urine that could may suggest a kidney stone or something of the like. 01/12/21 21:56 There is no blood within the patient's urine sample, so this is not suggestive of kidney stone pain. Again this is highly likely due to the stool in her right colon. Departure - Departure Time of Disposition: 21:56 Disposition: Home, Self-Care 01 Condition: Good Clinical Impression: RUQ abdominal pain, Elevated d-dimer Constipation Qualifiers: Constipation type: other constipation type Qualified Code(s): K59.09 - Other constipation - Discharge Information *PRESCRIPTION DRUG MONITORING PROGRAM REVIEWED*: No *COPY OF PRESCRIPTION DRUG MONITORING REPORT IN PATIENT JOSE: No Instructions: Abdominal Pain, Adult, [id number], Constipation, Adult, Easy-to -Read Referrals: PCP,None [Ordering Only Provider] - Forms: ED Department Discharge Additional Instructions: You were evaluated in the ER today for your right upper quadrant abdomen pain. Laboratory evaluation at today's visit, was only remarkable for an elevated D- dimer, which resulted in a CT of your chest to rule out pulmonary embolus, and there was no pulmonary embolus identified on today's visit. A CT of your abdomen along with a right upper quadrant abdominal ultrasound further demonstrated no sign of any sort of gallbladder etiology that would be the cause of your pain. Your CT did show quite a bit of stool in the right side your colon and throughout the hepatic flexure, which is in the area of your pain, and could be the source of your abdomen discomfort. You have been given a bottle of magnesium citrate, to have a few good bowel movements to see if this helps relieve some of your pain. You do not have to start this tonight, but I would recommend that you drink half the bottle tomorrow morning, if you do not have a rather large bowel movement within a few hours, please drink the last half of the bottle. Recommend you take 500 mg Tylenol or 600 mg ibuprofen every 6 hours as needed for ongoing pain relief. Do not exceed 4000 mg Tylenol or 3200 mg ibuprofen in a 24-hour time span. Do not hesitate to return to the ER if symptoms should change or worsen. Sepsis Event Note (ED) - Focused Exam Vital Signs: Vital Signs Temp Pulse Resp BP Pulse Ox 01/12/21 17:54 98.1 F 85 18 103/71 99 - My Orders Last 24 Hours: My Active Orders 01/12/21 19:40 Sodium Chloride 0.9% [Saline Flush] 10 ml FLUSH ONETIME PRN 01/12/21 19:45 Sodium Chloride 0.9% [Normal Saline] 100 ml IV ASDIRECTED - Assessment/Plan Last 24 Hours: My Active Orders 01/12/21 19:40 Sodium Chloride 0.9% [Saline Flush] 10 ml FLUSH ONETIME PRN 01/12/21 19:45 Sodium Chloride 0.9% [Normal Saline] 100 ml IV ASDIRECTED
--- NOTE | 2021-01-12 19:20 | CR ---
Chest: Portable view of the chest was obtained. Comparison: Prior chest x-ray of 08/13/20. Heart size and mediastinum are within normal limits. Lungs are clear with no acute parenchymal change. Bony structures appear within normal limits for the patient's age. Impression: 1. Nothing acute is appreciated on portable chest x-ray. Diagnostic code #1
--- NOTE | 2021-01-12 19:38 | US ---
Limited abdominal ultrasound: Multiple real-time images of the upper right abdomen were obtained. Comparison: Prior limited abdominal ultrasound study of 07/30/20 is available. Visualized portions of the pancreas show no discrete abnormality. Liver appears within normal limits. Gallbladder shows no shadowing gallstones. No gallbladder wall thickening or biliary duct dilatation is seen. Right kidney shows a small cyst measuring 8 mm. The cyst appears as an interval change from previous exam. Right kidney has a length of 12.0 cm. Proximal aorta shows no aneurysm. Inferior vena cava is patent. Main portal vein shows hepatopedal flow. Impression: 1. Minimal cyst within the right kidney. 2. No additional abnormality is identified on right upper quadrant abdominal ultrasound. Diagnostic code #2
[2021-01-12] MEDS ORDERED: Sodium Chloride 0.9% 10 ML Syringe FLUSH PRN (19:40)
[2021-01-12] MEDS ORDERED: Iopamidol 755 Mg/ML 100 ML Bottle IVPUSH ONE (19:40)
[2021-01-12] MEDS ORDERED: Acetaminophen/oxyCODONE 325-5 MG Tab PO ONE (19:41)
[2021-01-12] MEDS ORDERED: Sodium Chloride 0.9% 100 ML IV SCH (19:45)
--- NOTE | 2021-01-12 20:32 | CT ---
CT abdomen and pelvis Technique: Multiple axial sections were obtained from above the dome of the diaphragm inferiorly through the pubic symphysis. Intravenous contrast was utilized. Delayed images were obtained through the bladder. Reconstructed coronal and sagittal images were also obtained. Comparison: Prior CT abdomen and pelvis exam of 09/22/17 as well as previous abdominal ultrasound performed earlier on the same date as the current study (6:54 PM) Findings: Slight atelectasis is noted within both lung bases. Liver shows diminished density next to the ligamentum teres fissure which is a normal variant. No additional abnormality is appreciated within the liver. Spleen size is normal. Adrenal glands show no nodule. Pancreas appears within normal limits. Kidneys show symmetric contrast enhancement. Minimal cyst is noted within the right kidney measuring approximately 3.6 mm. Left kidney shows a calcification measuring 7 mm compatible with nonobstructing calculus. Kidneys show no other abnormality. Gallbladder is somewhat collapsed but shows no calcified gallstones. Abdominal aorta shows no aneurysm. No retroperitoneal adenopathy is seen. No mesenteric abnormalities are seen. Appendix is not seen. Small cyst is noted within the left ovary measuring 2.1 cm in size which presumably is physiologic. No pelvic mass or adenopathy is seen. No free fluid or inflammatory change is seen. Bone window settings were reviewed which show disc space narrowing and vacuum phenomena at L5-S1 with a small amount of epidural air at L5-S1 compatible with annular rupture. No acute osseous abnormality is appreciated. Impression: 1. Findings which I believe are incidental as noted above. 2. Nothing acute is appreciated on CT study of the abdomen and pelvis. Diagnostic code #2
--- NOTE | 2021-01-12 20:35 | CT ---
CT chest Technique: Multiple axial sections through the chest were obtained. Intravenous contrast was utilized. Study has been performed as a pulmonary angiogram protocol. Comparison: Chest x-ray performed earlier on the same day (6:02 PM) and CT chest study of 09/27/16. Findings: Pulmonary arteries are well opacified. No filling defects are seen to indicate pulmonary embolism. Thoracic aorta shows no aneurysm. No mediastinal adenopathy or hilar adenopathy is seen. No axillary adenopathy is seen. Lung window settings were obtained. Patchy groundglass appearance is seen within both posterior lungs which appears similar to prior chest CT and presumably is chronic. No acute parenchymal change is seen within either lung. Bone window settings were reviewed. No acute osseous abnormality is appreciated. Impression: 1. Findings as described above which are stable from prior chest CT. 2. No evidence of pulmonary embolism. Nothing acute is appreciated. Diagnostic code #2
[2021-01-12] MEDS ORDERED: Magnesium Citrate Solution 296 ML Bottle PO ONE (20:46)
[2021-01-12 22:24] VITALS: BP 108/69; PULSE 65
== END 2021-01-12 22:15 | disposition home or self-care (01) ==
LOC: JD.ED 17:50
DX: K59.09 Other constipation (principal); R79.89 Other specified abnormal findings of blood chemistry; E66.9 Obesity, unspecified; Z91.030 Bee allergy status; Z88.5 Allergy status to narcotic agent; Z86.718 Personal history of other venous thrombosis and embolism; Z68.30 Body mass index [BMI] 30.0-30.9, adult; Z68.44 Body mass index [BMI] 60.0-69.9, adult
CPT/HCPCS: 36415; 71045; 71275; 74177; 76705; 80053; 81001; 82977; 85025; 85379; 86140; 96374; 96375; 99285; A9270; J2405; J3010; Q9967; 99284

== ENCOUNTER 2021-08-19 18:28 | Emergency (ER) | payer MEDICAID ==
[2021-08-19 18:51] VITALS: BP 135/77; PULSE 78
[2021-08-19] MEDS ORDERED: Ibuprofen 600 MG Tab PO ONE (19:55)
[2021-08-19] MEDS ORDERED: Rivaroxaban 10 MG Tab PO ONE (21:25)
== END 2021-08-19 21:47 | disposition home or self-care (01) ==
LOC: JD.ED 18:28
DX: I80.12 Phlebitis and thrombophlebitis of left femoral vein (principal); E66.9 Obesity, unspecified; Z68.30 Body mass index [BMI] 30.0-30.9, adult; Z91.030 Bee allergy status; Z88.5 Allergy status to narcotic agent; Z79.01 Long term (current) use of anticoagulants; Z86.16 Personal history of COVID-19; Z72.0 Tobacco use
CPT/HCPCS: 36415; 85610; 85730; 93971-26-LT; 93971-LT; 99284; 99284-25; A9270-GY

== ENCOUNTER 2022-01-03 16:24 | Emergency (ER) | payer MEDICAID ==
[2022-01-03] MEDS ORDERED: Sodium Chloride 0.9% 10 ML Syringe FLUSH PRN (16:54)
[2022-01-03] MEDS ORDERED: Ondansetron 4 MG/2 ML SDV IVPUSH ONE (16:54)
[2022-01-03 16:57] VITALS: BP 115/73; PULSE 68
[2022-01-03] MEDS ORDERED: Sodium Chloride 0.9% 1,000 ML IV SCH (17:00)
[2022-01-03] MEDS ORDERED: Morphine 4 MG/ML Syringe IVPUSH ONE ×2 (17:09→18:51)
[2022-01-03] MEDS ORDERED: Iopamidol 612 MG/ML 100 ML Bottle IVPUSH ONE (17:39)
[2022-01-03] MEDS ORDERED: Sodium Chloride 0.9% 10 ML Syringe FLUSH ONE (17:39)
[2022-01-03] MEDS ORDERED: Alum Hydrox/Mag Hydrox/Simeth 30 ML, Lidocaine 2% 15 ML PO ONE ×2 (18:51)
== END 2022-01-03 19:50 | disposition home or self-care (01) ==
LOC: JD.ED 16:24
DX: K29.00 Acute gastritis without bleeding (principal); E66.9 Obesity, unspecified; Z68.30 Body mass index [BMI] 30.0-30.9, adult; Z91.030 Bee allergy status; Z88.6 Allergy status to analgesic agent; Z79.899 Other long term (current) drug therapy; Z86.16 Personal history of COVID-19; Z90.49 Acquired absence of other specified parts of digestive tract; Z90.710 Acquired absence of both cervix and uterus
CPT/HCPCS: 36415; 74177; 80053; 81001; 82977; 83690; 85025; 86140; 96361; 96374; 96375; 96376; 99284; A9270; J2270; J2405; J3490; J7030; Q9967; 99283

== ENCOUNTER → 2022-02-24 | Day surgery (SDC) | payer MEDICAID ==
[~2022-02-24] MED LIST changes: +Lactated Ringers 1,000 ML IV ONE; -Lactated Ringers 1,000 ML IV SCH; +Lidocaine 1% 4 ML ONE; -Lidocaine 1%/Sod Bicarbonate in NS 8.4% 1 ML Syringe IDERM PRN; +Midazolam 1 MG/ML 2 ML SDV ONE; +Propofol 200 MG/20 ML SDV ONE; -Sodium Chloride 0.9% 10 ML Syringe FLUSH PRN; +fentaNYL 100 MCG/2 ML SDV ONE
== END ==
LOC: JD.SDS 06:00
PROVIDERS: ATTEND Surgery
DX: D12.0 Benign neoplasm of cecum (principal); D12.4 Benign neoplasm of descending colon; D12.5 Benign neoplasm of sigmoid colon; K29.50 Unspecified chronic gastritis without bleeding; B96.81 Helicobacter pylori [H. pylori] as the cause of diseases classified elsewhere; K29.80 Duodenitis without bleeding; F17.210 Nicotine dependence, cigarettes, uncomplicated; F41.9 Anxiety disorder, unspecified; K64.8 Other hemorrhoids; F17.200 Nicotine dependence, unspecified, uncomplicated; Z90.49 Acquired absence of other specified parts of digestive tract; Z98.890 Other specified postprocedural states; Z91.030 Bee allergy status; Z91.018 Allergy to other foods; Z88.8 Allergy status to other drugs, medicaments and biological substances
CPT/HCPCS: 43239; 45380; J2250; J2704; J3010; J7120; 00813

== ENCOUNTER 2022-09-14 22:34 | Emergency (ER) | payer MEDICAID ==
[2022-09-14 22:59] VITALS: BP 135/77; PULSE 68
[2022-09-14] MEDS ORDERED: cefTRIAXone 1 GM Vial IM ONE (23:28)
[2022-09-15] MEDS ORDERED: Acetaminophen/oxyCODONE 325-5 MG Tab PO ONE (00:19)
== END 2022-09-15 00:40 | disposition home or self-care (01) ==
LOC: JD.ED 22:34
DX: K02.9 Dental caries, unspecified (principal); E66.9 Obesity, unspecified; Z68.29 Body mass index [BMI] 29.0-29.9, adult; Z91.030 Bee allergy status; Z88.5 Allergy status to narcotic agent
CPT/HCPCS: 96372; 99282; A9270; J0696

== ENCOUNTER 2023-12-25 07:30 | Emergency (ER) | payer MEDICAID ==
[2023-12-25] MEDS: Ketorolac 60 MG/2 ML SDV IM ONE (08:03)
[2023-12-25 08:57] LABS: BASOPHILS ABSOLUTE AUTO 0.1 K/mm3 (0.0-0.2); BASOPHILS PERCENT AUTO 0.6 % (0.0-1.0); EOSINOPHILS ABSOLUTE AUTO 0.1 K/mm3 (0.0-0.4); EOSINOPHILS PERCENT AUTO 1.2 % (0.0-6.0); HEMATOCRIT 41.4 % (37.0-47.0); IMMATURE GRAN ABSOLUTE AUTO 0.07 K/mm3 (0.00-0.05); IMMATURE GRAN PERCENT AUTO 0.6 % (0.0-0.4); LYMPHOCYTES ABSOLUTE AUTO 1.7 K/mm3 (1.0-4.8); LYMPHOCYTES PERCENT AUTO 15.7 % (24.0-44.0); MEAN CORPUSCULAR HEMOGLOBIN 31.7 pg (28.0-32.0); MEAN CORPUSCULAR HGB CONC 33.8 g/dl (32.0-36.0); MEAN CORPUSCULAR VOLUME 93.7 fl (83.0-99.0); MEAN PLATELET VOLUME 9.7 fl (9.4-12.3); MONOCYTES ABSOLUTE AUTO 0.7 K/mm3 (0.0-0.8); MONOCYTES PERCENT AUTO 6.3 % (0.0-8.0); NEUTROPHILS ABSOLUTE AUTO 8.2 K/mm3 (1.8-7.7); NEUTROPHILS PERCENT AUTO 75.6 % (41.0-71.0); PLATELET COUNT,PLT 223 K/mm3 (150-400); RED BLOOD CELL COUNT 4.42 M/mm3 (4.10-5.30); WHITE BLOOD CELL COUNT,WBC 10.88 K/mm3 (3.9-11.3)
[2023-12-25 09:06] LABS: ALBUMIN 3.4 g/dl (3.4-5.0); ANION GAP 15.1 (5-15); BILIRUBIN TOTAL 0.4 mg/dL (0.2-1.0); C-REACTIVE PROTEIN 0.16 mg/dL (<0.30); CALCIUM 8.7 mg/dL (8.5-10.1); CREATININE 0.9 mg/dL (0.55-1.02); EST CRCL DRUG DOSING (CG) 84.51 mL/min; POTASSIUM,K 4.1 mEq/L (3.5-5.1); PROTEIN TOTAL,TP 6.7 g/dl (6.4-8.2)
[2023-12-25] MEDS: Enoxaparin 100 MG/1 ML Syringe SUBCUT ONE (09:58)
[2023-12-25] MEDS: Apixaban 5 MG Tab PO ONE (09:58)
[2023-12-25] MEDS: Acetaminophen/HYDROcodone 325-5 MG Tab PO ONE (10:26)
[2023-12-25 14:24] VITALS: BP 113/65; PULSE 61
== END 2023-12-25 10:48 | disposition home or self-care (01) ==
LOC: JD.ED 07:30
DX: I82.432 Acute embolism and thrombosis of left popliteal vein (principal); E66.9 Obesity, unspecified; F17.210 Nicotine dependence, cigarettes, uncomplicated; Z90.49 Acquired absence of other specified parts of digestive tract; Z90.710 Acquired absence of both cervix and uterus; Z91.030 Bee allergy status; Z68.30 Body mass index [BMI] 30.0-30.9, adult
CPT/HCPCS: 36415; 72131; 73560; 80053; 83735; 85025; 86140; 93971; 96372; 99284; A9270; J1650; J1885